=== PATIENT | female | born 1970 | race Caucasian/White ===

== ENCOUNTER → 2019-12-12 10:12 | Outpatient (BNVA) | payer BC, SELFPAY | PROVIDERS: Family Provider Family Medicine; PCP Family Medicine; Visit Provider Family Medicine | DX: I10 Essential (primary) hypertension (principal); E11.9 Type 2 diabetes mellitus without complications; K75.81 Nonalcoholic steatohepatitis (NASH) | CPT/HCPCS: 80053; 80061; 82044; 82105; 83036; 83516; 85025; 85610 ==

== ENCOUNTER → 2019-12-13 15:50 | Outpatient (BNVA) | payer BC, SELFPAY | PROVIDERS: Family Provider Family Medicine; PCP Family Medicine; Visit Provider Family Medicine | DX: I10 Essential (primary) hypertension (principal); E11.9 Type 2 diabetes mellitus without complications; K75.81 Nonalcoholic steatohepatitis (NASH); D64.9 Anemia, unspecified | CPT/HCPCS: 82728; 83540; 83550 ==

== ENCOUNTER 2019-12-22 07:55 | Outpatient (CLI) | payer BC, SELFPAY ==
--- NOTE | 2019-12-22 | US_ITS ---
WS: [id number] ABDOMINAL ULTRASOUND REASON FOR EXAM: MARTIN, FATTY LIVER TECHNIQUE: Grayscale and Doppler ultrasound examination of the abdomen. FINDINGS: Pancreas: Within normal limits. Abdominal aorta and IVC: Within normal limits. Liver: Liver measures 20.82 cm in length. Diffuse fatty infiltration. Gallbladder: Status post cholecystectomy. Common bile duct measured 0.63 cm. Left kidney: Left kidney measures 11.22 cm x 5.50 cm x 5.73 cm. . No hydronephrosis no stones. Right kidney: Right kidney measures 11.45 cm x 5.03 cm x 5.90 cm. . No hydronephrosis no stones. Spleen: Spleen measures 12.64 cm by 5.37 x 4.88 cm. US/US abdomen complete* [id number] IMPRESSION: Hepatomegaly Fatty infiltration of the liver
--- NOTE | 2019-12-22 08:41 | US_ITS ---
WS: [id number] ABDOMINAL ULTRASOUND REASON FOR EXAM: MARTIN, FATTY LIVER TECHNIQUE: Grayscale and Doppler ultrasound examination of the abdomen. FINDINGS: Pancreas: Within normal limits. Abdominal aorta and IVC: Within normal limits. Liver: Liver measures 20.82 cm in length. Diffuse fatty infiltration. Gallbladder: Status post cholecystectomy. Common bile duct measured 0.63 cm. Left kidney: Left kidney measures 11.22 cm x 5.50 cm x 5.73 cm. . No hydronephrosis no stones. Right kidney: Right kidney measures 11.45 cm x 5.03 cm x 5.90 cm. . No hydronephrosis no stones. Spleen: Spleen measures 12.64 cm by 5.37 x 4.88 cm.
== END 2019-12-22 07:56 | disposition home or self-care (01) ==
PROVIDERS: Family Provider Family Medicine; PCP Family Medicine; Visit Provider Internal Medicine Gastroenterology
DX: K75.81 Nonalcoholic steatohepatitis (NASH) (principal); R16.0 Hepatomegaly, not elsewhere classified
CPT/HCPCS: 76700

== ENCOUNTER 2020-05-21 12:59 | Emergency (ER) | payer BC, SELFPAY ==
[2020-05-21] VITALS (10 sets, daily range): BP systolic 160–216; BP diastolic 100–117; PULSE 86–100; RESP 14–28; TEMP 36.6; O2SAT 90–98; BMI 44.2
--- NOTE | 2020-05-21 | XR_ITS ---
WS: [id number] EXAM: RIGHT SHOULDER AXILLARY VIEW DATE OF EXAMINATION: 05/21/2020, 1515 hours COMPARISON: Right shoulder plain films from earlier on the same date. HISTORY: 49 years old with right humeral fracture status post dislocation with subsequent reduction. FINDINGS: No definite glenoid fracture seen. Fractured humeral head noted. No dislocation seen No soft tissue a bnormality is demonstrated. XR/XR shoulder RT 1V [id number] IMPRESSION: No shoulder dislocation seen. Right humeral head fracture seen. No definite bon y glenoid fracture noted.
--- NOTE | 2020-05-21 13:10 | XR_ITS ---
WS: [id number] EXAM: RIGHT SHOULDER: 3 VIEWS DATE OF EXAMINATION: 05/21/2020, 1318 hours COMPARISON: None. HISTORY: 49 years old with shoulder pain. Status post fall with extended arm. FINDINGS: There are findings of anterior inferior dislocation of the right humerus in relation to the glenoid w ith a fractured posterior humeral head with displacement of the greater tuberosity fracture fragment by several centimeters. Post reduction imaging is recommended. I'm not convinced I see a definite gle noid fracture. No soft tissue abnormality is demonstrated. XR/XR shoulder RT min 2V* [id number] IMPRESSION: Anterior inferior humeral head dislocation relation to the glenoid with a fract ured and displaced greater tuberosity fracture fragment.
--- NOTE | 2020-05-21 13:15 | ED_ITS ---
HPI - Extremity Injury (Upper) General: Chief Complaint: Extremity Injury, Lower Stated Complaint: right arm/shoulder pain Time Seen by Provider: 05/21/20 13:14 Source: patient Mode of arrival: ambulatory Limitations: no limitations History of Present Illness: HPI narrative: Patient is a 49-year-old female who presents to ED today for evaluation of a right shoulder injury. Patient states just prior to arrival she accidentally tripped and ran her shoulder into a door hinge. She is complaining of severe right shoulder pain. No other injury sustained during the incident. MD complaint: injury to: right and shoulder Onset (ago): hour(s) Other Extremity Injury: Right: shoulder Other injuries: none Place: home Severity: severe Severity scale (1-10): 10 Relieving factors: none Exacerbating factors: movement of extremity Context: direct blow Associated symptoms: Reports no associated symptoms; Denies neck pain Review of Systems Eyes: Denies: change in vision Card: Denies: chest pain Resp: Denies: dyspnea GI: Denies: nausea or vomiting Musc: Reports: joint pain (R shoulder); Denies: neck pain, back pain, extremity pain, extremity swelling or joint swelling PFSH ED PFSH: Medical History Allergic rhinitis Benign essential HTN Gastroparesis GERD (gastroesophageal reflux disease) Hepatosplenomegaly Hypokalemia Hyponatremia Lesion of lung Liver fibrosis MARTIN (nonalcoholic steatohepatitis) Situational anxiety Sleep apnea Type 2 diabetes mellitus, without long-term current use of insulin Surgical History History of cholecystectomy Hx of bilateral salpingectomy Hx of section Hx of dilation and curettage Hx of hysterectomy Hx of tonsillectomy Hx of tubal ligation Family History Other Cancer Diabetes Family history of thyroid problem Stroke Social History Smoking and tobacco status: never smoked Alcohol intake: never Physical Exam Const: COMMON NORMALS: patient oriented x3, no limitations and alert GENERAL APPEARANCE: cooperative and in distress (crying due to pain) NUTRITIONAL APPEARANCE: obese ORIENTATION/CONSCIOUSNESS: Yes oriented to person, Yes oriented to place and Yes oriented to time HENMT: COMMON NORMALS: normocephalic and atraumatic HEAD & SCALP: normocephalic and atraumatic Neck/C-Spine: COMMON NORMALS: full ROM CERVICAL SPINE: Yes cervical ROM normal, No pain with cervical ROM, No Cervical spine tenderness and No Paracervical muscle tenderness Chest: COMMONS NORMALS: normal inspection of the chest and normal palpation of entire chest wall Resp: COMMON NORMALS: normal respiratory effort and clear to auscultation bilaterally AUSCULTATION: clear to auscultation bilaterally Cardio: COMMON NORMALS: regular rate and regular rhythm RATE: regular rate RHYTHM: regular rhythm Back/Pelvis: COMMON NORMALS: thoracic and lumbar spine normal to inspection, no thoracic nor lumbar tenderness and thoraco-lumbar ROM normal Extremity: GENERAL: Yes normal exam except as noted RIGHT UPPER EXTREMITY: Yes shoulder joint (extreme pain with palpation of glenohumeral joint; no ROM secondary to this) Right shoulder: Yes Right shoulder joint neurovascular exam (intact) Neuro: COMMON NORMALS: patient oriented x3, no focal motor deficits, no sensory deficits noted and gait normal SENSORIUM/ORIENTATION: Yes alert, Yes oriented to person, Yes oriented to place and Yes oriented to time Skin: COMMON NORMALS: no rashes or lesions noted GENERAL SKIN EXAM: no rashes or lesions noted Course Vital Signs: Vital signs: Vital Signs Temperature 97.9 F 05/21/20 13:09 Pulse Rate 95 05/21/20 13:09 Respiratory Rate 18 05/21/20 13:09 Blood Pressure 216/117 05/21/20 13:09 Pulse Oximetry 96 05/21/20 13:09 Discharge Plan Discharge Prescriptions: No Action potassium chloride [Klor-Con 10] 10 mEq tablet extended release 10 meq PO BID RF: 0 fluticasone propionate [Flonase Allergy Relief] 50 mcg/actuation spray,suspension 1 spray INTRANASAL BID RF: 0 cholecalciferol (vitamin D3) 25 mcg (1,000 unit) tablet 1,000 unit PO DAILY RF: 0 amlodipine 5 mg tablet 5 mg PO DAILY RF: 0 hydroxyzine HCl 25 mg tablet 25 mg PO BID PRN (Reason: anxiety) 60 Days Qty: 60 RF: 2 pantoprazole 40 mg tablet,delayed release (DR/EC) 40 mg PO BID Qty: 60 RF: 2 metformin 1,000 mg tablet 1,000 mg PO BID Qty: 60 RF: 2 Invokana 300 mg tablet 300 mg PO DAILY Qty: 30 RF: 2 Januvia 100 mg tablet 100 mg PO DAILY Qty: 30 RF: 2 Trulicity 1.5 mg/0.5 mL pen injector 1.5 mg SUBCUT .once weekly Qty: 2 RF: 2 pregabalin 75 mg capsule 75 mg PO TID Qty: 90 RF: 2 (DME) lancets [OneTouch Delica Lancets] 33 gauge misc See Rx Instructions .ROUTE .MEDSUPPLY Qty: 100 RF: 1 (DME) OneTouch Ultra Blue Test Strip Strip See Rx Instructions .ROUTE .MEDSUPPLY Qty: 100 RF: 2 (DME) blood sugar diagnostic [OneTouch Ultra Blue Test Strip] Strip See Rx Instructions .ROUTE .MEDSUPPLY Qty: 100 RF: 0 (DME) lancets [OneTouch UltraSoft Lancets] Misc See Rx Instructions .ROUTE .MEDSUPPLY Qty: 100 RF: 0 Coding Level of Care Code ED Plant Taxonomy Teacher for Chg Fwd Exam Comprehensive
[2020-05-21] MEDS: morphine 4 mg/mL SDV 1 mL IVP ×2 (13:46→14:40)
[2020-05-21] MEDS: ondansetron 2 mg/ML SDV 2 mL 4 MG IVP (13:52)
[2020-05-21] MEDS: fentaNYL 50 mcg/mL INJ 2mL 75 MCG IVP (14:04)
[2020-05-21] MEDS: propofol 10 mg/mL SDV 20 mL 225 MG IVP (14:19)
--- NOTE | 2020-05-21 14:25 | XR_ITS ---
WS: [id number] EXAM: RIGHT SHOULDER: 3 VIEWS DATE OF EXAMINATION: 05/21/2020, 1431 hours COMPARISON: Right shoulder examination from earlier on the same date. HISTORY: 49 years old with post reduction dislocated right shoulder. FINDINGS: Since the earlier examination the dislocated shoulder has been reduced. The distal fractured posterio r greater tuberosity of the humeral head is now closer in alignment with the main humeral head. No so ft tissue abnormality is demonstrated. XR/XR shoulder RT min 2V* [id number] IMPRESSION: Reduced dislocated right shoulder. Fractured and displaced posterior humeral he ad/greater tuberosity fragment now in closer alignment to the main humeral head .
--- NOTE | 2020-05-21 14:44 | W.ED.UPPEXIN ---
Documented by User: PETERSON Bullock 05/21/20 16:23 HPI - Extremity Injury (Upper) General: Chief Complaint: Extremity Injury, Lower Stated Complaint: right arm/shoulder pain Time Seen by Provider: 05/21/20 13:14 Source: patient Mode of arrival: ambulatory Limitations: no limitations History of Present Illness: HPI narrative: Patient is a 49-year-old female who presents to ED today for evaluation of her right shoulder injury. Patient tells me just prior to arrival she accidentally tripped and fell and slammed her right shoulder into a door hinge. Patient reports immediate severe pain. No other injury sustained during the incident. She denies numbness, tingling, loss of sensation to her extremity. MD complaint: injury to: right and shoulder Onset (ago): hour(s) Other Extremity Injury: Right: shoulder Other injuries: none Place: home Severity: severe Relieving factors: none Exacerbating factors: movement of extremity Associated symptoms: Reports no associated symptoms; Denies neck pain Review of Systems Eyes: Denies: change in vision Card: Denies: chest pain Resp: Denies: dyspnea GI: Denies: nausea or vomiting Musc: Reports: joint pain (R shoulder) and limited range of motion; Denies: neck pain, back pain, extremity pain or extremity swelling Neuro: Denies: numbness in extremities or sensory changes PFS ED PFSH: Medical History (Updated 05/21/20 @ 15:46 by PETERSON Bullock) Allergic rhinitis Benign essential HTN Gastroparesis GERD (gastroesophageal reflux disease) Hepatosplenomegaly Hypokalemia Hyponatremia Lesion of lung Liver fibrosis MARTIN (nonalcoholic steatohepatitis) Situational anxiety Sleep apnea Type 2 diabetes mellitus, without long-term current use of insulin Surgical History History of cholecystectomy Hx of bilateral salpingectomy Hx of section Hx of dilation and curettage Hx of hysterectomy Hx of tonsillectomy Hx of tubal ligation Family History Other Cancer Diabetes Family history of thyroid problem Stroke Social History Smoking and tobacco status: never smoked Alcohol intake: never Physical Exam Const: COMMON NORMALS: patient oriented x3, no limitations and alert GENERAL APPEARANCE: cooperative and in distress (crying due to pain) NUTRITIONAL APPEARANCE: obese HENMT: COMMON NORMALS: normocephalic and atraumatic HEAD & SCALP: normocephalic and atraumatic Neck/C-Spine: COMMON NORMALS: full ROM CERVICAL SPINE: Yes cervical ROM normal, No Cervical spine tenderness and No Paracervical muscle tenderness Chest: COMMONS NORMALS: normal inspection of the chest and normal palpation of entire chest wall Resp: COMMON NORMALS: normal respiratory effort and clear to auscultation bilaterally AUSCULTATION: clear to auscultation bilaterally Cardio: COMMON NORMALS: regular rate and regular rhythm RATE: regular rate RHYTHM: regular rhythm Back/Pelvis: COMMON NORMALS: thoracic and lumbar spine normal to inspection, no thoracic nor lumbar tenderness and thoraco-lumbar ROM normal Extremity: GENERAL: Yes normal exam except as noted RIGHT UPPER EXTREMITY: Yes shoulder joint (severe pain with palpation of glenohumeral joint; no ROM secondary to pain) Right shoulder: Yes Right shoulder joint neurovascular exam (intact) Neuro: COMMON NORMALS: patient oriented x3, no focal motor deficits and no sensory deficits noted SENSORIUM/ORIENTATION: Yes alert Skin: COMMON NORMALS: no rashes or lesions noted GENERAL SKIN EXAM: no rashes or lesions noted Procedures Orthopedic Joint Reduction Joint #1: Time Out Performed: Yes Side: right Joint Reduction Location: shoulder Analgesia: procedural sedation Shoulder Technique Used (if applicable): traction/counter-traction and external rotation Post-reduction neuro exam: intact Post-reduction vascular: intact Post Reduction X-Ray Obtained: Yes Post Reduction X-Ray Results: reduced Splint Applied: Yes Patient Tolerated Procedure: well Course Consultations: Consultation #1: Dr. Arredondo-recommends reduction and will be consulted again with post-reduction films *Dr. Arredondo contacted again after post-reduction films completed-recommends sling and will followup in office Vital Signs: Vital signs: Vital Signs Temperature 97.9 F 05/21/20 13:09 Pulse Rate 100 05/21/20 16:00 Respiratory Rate 18 05/21/20 16:00 Blood Pressure 181/100 05/21/20 14:36 Pulse Oximetry 97 05/21/20 16:00 MDM - Extremity Injury (Upper) MDM Narrative: Medical decision making narrative: case management actively working on getting her set up with Dr. Arredondo this week; patient was seen and treated in conjunction with Dr. Donato; please see his note for procedural sedation; he was present and assisted with joint reduction Imaging Data^: XR R shoulder: Radiologist's impression: [address] [address] XRay Report Signed Patient: Vaishali Jean Unit #: [id number] : 1970 Age/Sex: 49 / F ADM Date: 05/21/20 Loc: ER Room/Bed: Attending Dr: Ordering Provider/Ordering MD: Elisabeth Quintanilla Date of Service: 05/21/20 Procedure(s): XR shoulder RT min 2V* [id number] Accession Number(s): [id number] Report Number: [id number] WS: [id number] EXAM: RIGHT SHOULDER: 3 VIEWS DATE OF EXAMINATION: 05/21/2020, 1318 hours COMPARISON: None. HISTORY: 49 years old with shoulder pain. Status post fall with extended arm. FINDINGS: There are findings of anterior inferior dislocation of the right humerus in relation to the glenoid with a fractured posterior humeral head with displacement of the greater tuberosity fracture fragment by several centimeters. Post reduction imaging is recommended. I'm not convinced I see a definite glenoid fracture. No soft tissue abnormality is demonstrated. XR/XR shoulder RT min 2V* [id number] IMPRESSION: Anterior inferior humeral head dislocation relation to the glenoid with a fractured and displaced greater tuberosity fracture fragment. Dictated By: Elias Villanueva MD Signed By: Elias Villanueva MD Signed Date/Time: 05/21/20 1340 DD/ 1338 XR R shoulder post-reduction: Radiologist's impression: [address] [place] [address] XRay Report Signed Patient: Vaishali Jean Unit #: [id number] : 1970 Age/Sex: 49 / F ADM Date: 05/21/20 Loc: ER Room/Bed: Attending Dr: Ordering Provider/Ordering MD: Jessie Donato DO Date of Service: 05/21/20 Procedure(s): XR shoulder RT min 2V* [id number] Accession Number(s): [id number] Report Number: [id number] WS: [id number] EXAM: RIGHT SHOULDER: 3 VIEWS DATE OF EXAMINATION: 05/21/2020, 1431 hours COMPARISON: Right shoulder examination from earlier on the same date. HISTORY: 49 years old with post reduction dislocated right shoulder. FINDINGS: Since the earlier examination the dislocated shoulder has been reduced. The distal fractured posterior greater tuberosity of the humeral head is now closer in alignment with the main humeral head. No soft tissue abnormality is demonstrated. XR/XR shoulder RT min 2V* [id number] IMPRESSION: Reduced dislocated right shoulder. Fractured and displaced posterior humeral head/greater tuberosity fragment now in closer alignment to the main humeral head. Dictated By: Elias Villanueva MD Signed By: Elias Villanueva MD Signed Date/Time: 05/21/201447 DD/ 45 Discharge Plan Discharge Patient Disposition: Home Clinical Impression: Dislocation of right shoulder joint Qualifiers: Encounter type: initial encounter Qualified Code(s): S43.004A - Unspecified dislocation of right shoulder joint, initial encounter Closed fracture of greater tuberosity of humerus Qualifiers: Encounter type: initial encounter Fracture alignment: displaced Laterality: right Qualified Code(s): S42.251A - Displaced fracture of greater tuberosity of right humerus, initial encounter for closed fracture Condition: Stable Prescriptions: New hydrocodone-acetaminophen 7.5-325 mg tablet 1 tab PO Q4H PRN (Reason: pain) Qty: 20 RF: 0 No Action potassium chloride [Klor-Con 10] 10 mEq tablet extended release 10 meq PO BID RF: 0 fluticasone propionate [Flonase Allergy Relief] 50 mcg/actuation spray,suspension 1 spray INTRANASAL BID RF: 0 cholecalciferol (vitamin D3) 25 mcg (1,000 unit) tablet 1,000 unit PO DAILY RF: 0 amlodipine 5 mg tablet 5 mg PO DAILY RF: 0 hydroxyzine HCl 25 mg tablet 25 mg PO BID PRN (Reason: anxiety) 60 Days Qty: 60 RF: 2 pantoprazole 40 mg tablet,delayed release (DR/EC) 40 mg PO BID Qty: 60 RF: 2 metformin 1,000 mg tablet 1,000 mg PO BID Qty: 60 RF: 2 Invokana 300 mg tablet 300 mg PO DAILY Qty: 30 RF: 2 Januvia 100 mg tablet 100 mg PO DAILY Qty: 30 RF: 2 pregabalin 75 mg capsule 75 mg PO TID Qty: 90 RF: 2 (DME) lancets [OneTouch Delica Lancets] 33 gauge misc See Rx Instructions .ROUTE .MEDSUPPLY Qty: 100 RF: 1 (DME) OneTouch Ultra Blue Test Strip Strip See Rx Instructions .ROUTE .MEDSUPPLY Qty: 100 RF: 2 (DME) blood sugar diagnostic [OneTouch Ultra Blue Test Strip] Strip See Rx Instructions .ROUTE .MEDSUPPLY Qty: 100 RF: 0 (DME) lancets [OneTouch UltraSoft Lancets] Misc See Rx Instructions .ROUTE .MEDSUPPLY Qty: 100 RF: 0 Tylenol Extra Strength 500 mg Tablet 1,000 mg PO PRN RF: 0 hydrochlorothiazide 25 mg tablet 25 mg PO DAILY RF: 0 echinacea 2 tab PO DAILY RF: 0 Trulicity 1.5 mg/0.5 mL pen injector 1.5 mg SUBCUT Q7D RF: 0 Discharge Orders: Discharge Order (Routine); Ordered 05/21/20 Ordered By: Elisabeth Quintanilla Referrals: Bety Steinberg DO [Primary Care Provider] - Rashel Arredondo MD [Physician] - Activity Restrictions/Additional Instructions: As discussed case management will work on getting you your appointment date and time with Dr. Arredondo. You may use pain medications as directed for severe pain. You need to wear your sling at all times apart from bathing/showering. Discharge Date/Time: 05/21/20 16:04 Sign Out Sign Out Data: Patient Sign Out occurred on 05/21/20 at 16:01. Patient's care was discussed, and care was transferred from to Jessie Donato. Coding Level of Care Code ED Oracle Brm Developer for Chg Fwd Exam Comprehensive Documented by User: Jessie Donato 05/21/20 16:03 HPI - Extremity Injury (Upper) General: Chief Complaint: Extremity Injury, Lower Stated Complaint: right arm/shoulder pain Time Seen by Provider: 05/21/20 13:14 [facility] ED PFSH: Medical History (Updated 05/21/20 @ 15:46 by PETERSON Bullock) Allergic rhinitis Benign essential HTN Gastroparesis GERD (gastroesophageal reflux disease) Hepatosplenomegaly Hypokalemia Hyponatremia Lesion of lung Liver fibrosis MARTIN (nonalcoholic steatohepatitis) Situational anxiety Sleep apnea Type 2 diabetes mellitus, without long-term current use of insulin Surgical History History of cholecystectomy Hx of bilateral salpingectomy Hx of section Hx of dilation and curettage Hx of hysterectomy Hx of tonsillectomy Hx of tubal ligation Family History Other Cancer Diabetes Family history of thyroid problem Stroke Social History Smoking and tobacco status: never smoked Alcohol intake: never Procedures Procedural Sedation Indication: fracture/dislocation reduction Presedation Evaluation: Normal physical exam other than right extremity injury as noted. ASA Class: II Preparation: cardiac exercise specialist applied, pulse oximeter, capnometry used, supplemental O2 applied and suction/airway equipment at bedside IV Propofol dose (mg): 250 Patient Tolerated Procedure: well Complications: none Course Vital Signs: Vital signs: Vital Signs Temperature 97.9 F 05/21/20 13:09 Pulse Rate 100 05/21/20 16:00 Respiratory Rate 18 05/21/20 16:00 Blood Pressure 181/100 05/21/20 14:36 Pulse Oximetry 97 05/21/20 16:00 Discharge Plan Discharge Patient Disposition: Home Clinical Impression: Dislocation of right shoulder joint Qualifiers: Encounter type: initial encounter Qualified Code(s): S43.004A - Unspecified dislocation of right shoulder joint, initial encounter Closed fracture of greater tuberosity of humerus Qualifiers: Encounter type: initial encounter Fracture alignment: displaced Laterality: right Qualified Code(s): S42.251A - Displaced fracture of greater tuberosity of right humerus, initial encounter for closed fracture Condition: Stable Prescriptions: New hydrocodone-acetaminophen 7.5-325 mg tablet 1 tab PO Q4H PRN (Reason: pain) Qty: 20 RF: 0 No Action potassium chloride [Klor-Con 10] 10 mEq tablet extended release 10 meq PO BID RF: 0 fluticasone propionate [Flonase Allergy Relief] 50 mcg/actuation spray,suspension 1 spray INTRANASAL BID RF: 0 cholecalciferol (vitamin D3) 25 mcg (1,000 unit) tablet 1,000 unit PO DAILY RF: 0 amlodipine 5 mg tablet 5 mg PO DAILY RF: 0 hydroxyzine HCl 25 mg tablet 25 mg PO BID PRN (Reason: anxiety) 60 Days Qty: 60 RF: 2 pantoprazole 40 mg tablet,delayed release (DR/EC) 40 mg PO BID Qty: 60 RF: 2 metformin 1,000 mg tablet 1,000 mg PO BID Qty: 60 RF: 2 Invokana 300 mg tablet 300 mg PO DAILY Qty: 30 RF: 2 Januvia 100 mg tablet 100 mg PO DAILY Qty: 30 RF: 2 pregabalin 75 mg capsule 75 mg PO TID Qty: 90 RF: 2 (DME) lancets [OneTouch Delica Lancets] 33 gauge misc See Rx Instructions .ROUTE .MEDSUPPLY Qty: 100 RF: 1 (DME) OneTouch Ultra Blue Test Strip Strip See Rx Instructions .ROUTE .MEDSUPPLY Qty: 100 RF: 2 (DME) blood sugar diagnostic [OneTouch Ultra Blue Test Strip] Strip See Rx Instructions .ROUTE .MEDSUPPLY Qty: 100 RF: 0 (DME) lancets [OneTouch UltraSoft Lancets] Misc See Rx Instructions .ROUTE .MEDSUPPLY Qty: 100 RF: 0 Tylenol Extra Strength 500 mg Tablet 1,000 mg PO PRN RF: 0 hydrochlorothiazide 25 mg tablet 25 mg PO DAILY RF: 0 echinacea 2 tab PO DAILY RF: 0 Trulicity 1.5 mg/0.5 mL pen injector 1.5 mg SUBCUT Q7D RF: 0 Discharge Orders: Discharge Order (Routine); Ordered 05/21/20 Ordered By: Elisabeth Quintanilla Referrals: Bety Steinberg DO [Primary Care Provider] - Rashel Arredondo MD [Physician] - Activity Restrictions/Additional Instructions: As discussed case management will work on getting you your appointment date and time with Dr. Arredondo. You may use pain medications as directed for severe pain. You need to wear your sling at all times apart from bathing/showering. Discharge Date/Time: 05/21/20 16:04 Sign Out Sign Out Data: Patient Sign Out occurred on 05/21/20 at 16:01. Patient's care was discussed, and care was transferred from to Jessie Donato. Coding Level of Care Code ED Oracle Brm Developer for [place] Fwd Exam Comprehensive
--- NOTE | 2020-05-21 15:53 | DCPLANNER ---
manager creative was asked to schedule a follow up appointment for patient with ortho. manager creative called the ortho clinic, spoke with Claritza, gave clinic patients information. manager creative was told that patients information would be printed and reviewed. Clinic will call patient with appointment information.
--- NOTE | 2020-05-22 11:53 | DCPLANNER ---
Patient had a follow up appointment scheduled for 05.22.20 with ortho. Patient did attend the appointment.
== END 2020-05-21 16:04 | disposition home or self-care (01) ==
PROVIDERS: Emergency Provider Emergency Medicine; PCP Family Medicine
DX: S42.251A Displaced fracture of greater tuberosity of right humerus, initial encounter for closed fracture (principal); S43.004A Unspecified dislocation of right shoulder joint, initial encounter; I10 Essential (primary) hypertension; E11.9 Type 2 diabetes mellitus without complications; Z79.4 Long term (current) use of insulin; W01.198A Fall on same level from slipping, tripping and stumbling with subsequent striking against other object, initial encounter
CPT/HCPCS: 12345; 23650; 73020; 73030; 96374; 96375; 96376; 99283; J2270; J2405; J2704; J3010

== ENCOUNTER → 2020-05-29 09:59 | Outpatient (BNVA) | payer BC, SELFPAY | PROVIDERS: PCP Family Medicine; Visit Provider Orthopaedic Surgery | DX: S42.251A Displaced fracture of greater tuberosity of right humerus, initial encounter for closed fracture (principal); W01.0XXA Fall on same level from slipping, tripping and stumbling without subsequent striking against object, initial encounter | CPT/HCPCS: 73030 ==

== ENCOUNTER → 2020-06-26 08:19 | Outpatient (BNVA) | payer BC, SELFPAY | PROVIDERS: PCP Family Medicine; Visit Provider Orthopaedic Surgery | DX: S42.251A Displaced fracture of greater tuberosity of right humerus, initial encounter for closed fracture (principal); X58.XXXA Exposure to other specified factors, initial encounter | CPT/HCPCS: 73030 ==

== ENCOUNTER → 2020-07-15 08:28 | Outpatient (BNVA) | payer BC, SELFPAY | PROVIDERS: PCP Family Medicine; Visit Provider Family Medicine | DX: E11.9 Type 2 diabetes mellitus without complications (principal); I10 Essential (primary) hypertension; E11.42 Type 2 diabetes mellitus with diabetic polyneuropathy; K75.81 Nonalcoholic steatohepatitis (NASH) | CPT/HCPCS: 80053; 80061; 83036; 83721; 85025 ==

== ENCOUNTER → 2020-07-31 08:38 | Outpatient (BNVA) | payer BC, SELFPAY | PROVIDERS: PCP Family Medicine; Visit Provider Orthopaedic Surgery | DX: S42.251A Displaced fracture of greater tuberosity of right humerus, initial encounter for closed fracture (principal); X58.XXXA Exposure to other specified factors, initial encounter | CPT/HCPCS: 73030 ==

== ENCOUNTER → 2020-08-27 10:22 | Outpatient (BNVA) | payer BC, SELFPAY | PROVIDERS: PCP Family Medicine; Visit Provider Orthopaedic Surgery | DX: S49.91XA Unspecified injury of right shoulder and upper arm, initial encounter (principal); X58.XXXA Exposure to other specified factors, initial encounter | CPT/HCPCS: 73030 ==

== ENCOUNTER → 2022-02-05 10:17 | Outpatient (BNVA) | payer BC, SELFPAY | PROVIDERS: PCP Family Medicine; Visit Provider Family Medicine | DX: K21.9 Gastro-esophageal reflux disease without esophagitis (principal); I10 Essential (primary) hypertension; E11.9 Type 2 diabetes mellitus without complications | CPT/HCPCS: 80053; 80061; 83036 ==

== ENCOUNTER → 2022-06-03 08:29 | Outpatient (BNVA) | payer BC, SELFPAY | PROVIDERS: PCP Family Medicine; Visit Provider Family Medicine | DX: E11.9 Type 2 diabetes mellitus without complications (principal); I10 Essential (primary) hypertension; M62.838 Other muscle spasm; Z91.19 Patient's noncompliance with other medical treatment and regimen | CPT/HCPCS: 80048; 83036; 83735 ==

== ENCOUNTER → 2022-10-02 09:13 | Outpatient (BNVA) | payer BC, SELFPAY | PROVIDERS: PCP Family Medicine; Visit Provider Family Medicine | DX: E11.9 Type 2 diabetes mellitus without complications (principal); I10 Essential (primary) hypertension | CPT/HCPCS: 80048; 83036 ==

== ENCOUNTER 2022-11-11 00:30 | Emergency (ER) | payer BC, SELFPAY ==
--- NOTE | 2022-11-11 00:41 | XR_ITS ---
WS: [id number] PORTABLE CHEST HISTORY: Chest pain. COMPARISON: None available. Mildly lordotic appearance of the lungs due to positioning. Cause of the mediastinum to appear mildly widened. The lungs are clear. No pleural effusion or pneumothorax. Cardiac size: Normal. Mediastinum/Aorta: Normal mediastinum. No osseous abnormality seen. XR/XR chest 1V portable [id number] IMPRESSION: Unremarkable portable chest.
--- NOTE | 2022-11-11 00:41 | XR_ITS ---
WS: [id number] RIGHT FOREARM 2 VIEWS HISTORY: pain COMPARISON: None available. No fracture or dislocation. No foreign body or joint effusion. XR/XR forearm RT 2V [id number] IMPRESSION: Normal RIGHT forearm.
--- NOTE | 2022-11-11 00:41 | CT_ITS ---
WS: [id number] CT HEAD NONCONTRAST HISTORY: fall TECHNIQUE: Contiguous axial imaging performed through the brain in 2.5 mm imaging. Bone and soft tiss ue windows. Sagittal and coronal reformats reviewed. All CT scans at [facility] use at least one of these dose optimization techniques: automated exposure control; mA and/or kV adjustment per pa tient size (includes targeted exams where dose is matched to clinical indication); or iterative recon struction. DLP: 1028.28 mGy.cm COMPARISON: None available. No acute intracranial hemorrhage, midline shift or mass effect. Very minimal atrophy and small vessel ischemic disease. No infarct. Ventricles: Normal size with no hydrocephalus. No inferior displacement of cerebellar tonsils. Small lipoma along the supraventricular falx. Paranasal sinuses: As visualized are clear. Mastoid air cells: Well pneumatized. Calvarium and scalp: Skull is intact with no soft tissue edema or swelling. CT/CT head wo con* [id number] IMPRESSION: 1. No acute intracranial hemorrhage or edema. 2. Very mild atrophy and small vessel ischemic disease.
[2022-11-11 00:42] VITALS: BP 204/134; PULSE 106; RESP 16; TEMP 36.3; O2SAT 96; BMI 38.8
--- NOTE | 2022-11-11 00:43 | ED_ITS ---
HPI - Fall General: Chief Complaint: Syncope Stated Complaint: fall, right arm injury, ANGEL Time Seen by Provider: 11/11/22 00:36 Source: patient Mode of arrival: ambulatory Limitations: no limitations History of Present Illness: 52-year-old female states she had a fall earlier today. She states that she has felt lightheaded and then fell. She denies passing out she did hit her head and has a contusion to her forehead and has some right-sided arm pain. She has a headache she rates at 3 out of 10 denies any chest pain currently denies any shortness of breath denies any vomiting or diarrhea. Associated symptoms-after fall: Reports headache(s); Denies abdominal pain Review of Systems Const: Denies: fever(s), chills, body aches or change in appetite Eyes: Denies: blurry vision or eye discomfort ENMT: Denies: throat pain or dental pain Card: Reports: pre-syncope Resp: Denies: dyspnea GI: Denies: abdominal pain, nausea, vomiting or diarrhea : Denies: dysuria Musc: Reports: extremity pain Skin/Breast: Denies: rash Neuro: Reports: headache(s) Psych: Denies: depression Du/Lymph: Denies: easy bruising All/Imm: Denies: urticaria PFSH ED PFSH: Medical History (Updated 11/11/22 @ 03:04 by Kendall Godfrey MD) Allergic rhinitis Benign essential HTN side effects with HCTZ and amlodipine Gastroparesis GERD (gastroesophageal reflux disease) Hepatosplenomegaly Hypokalemia Hyponatremia Lesion of lung Liver fibrosis MARTIN (nonalcoholic steatohepatitis) Situational anxiety Sleep apnea Type 2 diabetes mellitus, without long-term current use of insulin metformin intolerance. Surgical History History of cholecystectomy Hx of bilateral salpingectomy Hx of section Hx of dilation and curettage Hx of hysterectomy Hx of tonsillectomy Hx of tubal ligation Family History Other Cancer Diabetes Family history of thyroid problem Stroke Social History Smoking and tobacco status: never smoked Alcohol intake: never Physical Exam Const: COMMON NORMALS: no acute distress, patient oriented x3 and healthy appearing HENMT: COMMON NORMALS: normocephalic; head/scalp not atraumatic (contusino to forehead) HEAD & SCALP: normocephalic; not atraumatic (contusino to forehead) Eye: COMMON NORMALS: Equal, round and reactive pupils present and EOMs intact bilaterally PUPIL: Yes Equal, round and reactive pupils present Neck/C-Spine: COMMON NORMALS: full ROM and supple Chest: COMMONS NORMALS: normal inspection of the chest and normal palpation of entire chest wall Resp: COMMON NORMALS: normal respiratory effort, No retractions, No use of accessory muscles and clear to auscultation bilaterally AUSCULTATION: clear to auscultation bilaterally Cardio: COMMON NORMALS: regular rate, regular rhythm and No murmurs present (Cardio) RATE: regular rate RHYTHM: regular rhythm GI: COMMON NORMALS: Normal to inspection, nondistended, normoactive bowel sounds present, Soft to palpation, non-tender and no masses PALPATION: Yes Soft to palpation Extremity: COMMON NORMALS: normal to inspection and full ROM Neuro: COMMON NORMALS: patient oriented x3, moves all extremities and no focal motor deficits Psych: COMMON NORMALS: mental status grossly normal, Normal thought process present and cooperative THOUGHT PROCESS: Normal thought process present Skin: COMMON NORMALS: no rashes or lesions noted and no wounds GENERAL SKIN EXAM: no rashes or lesions noted Course Vital Signs: Vital signs: Vital Signs Temperature 97.3 F L 11/11/22 00:42 Pulse Rate 89 11/11/22 03:01 Respiratory Rate 20 H 11/11/22 03:01 Blood Pressure 167/99 11/11/22 03:01 Pulse Oximetry 99 11/11/22 03:01 Oxygen Delivery Me thod 11/11/22 00:42 MDM - Fall Medical Decision Making Patient presents here after a fall at home closed head injury head CT here is normal she does have hypertension here but states she usually does when she goes to the hospital her troponins and blood work is normal she is stable for discharge she is follow-up her PCP and return if worsening. Lab Data 11/11/22 00:58 11/11/22 00:58 Radiology Impressions Chest X-Ray 11/11/22 00:41 IMPRESSION: Unremarkable portable chest. Forearm X-Ray 11/11/22 00:41 IMPRESSION: Normal RIGHT forearm. Head CT 11/11/22 00:41 IMPRESSION: 1. No acute intracranial hemorrhage or edema. 2. Very mild atrophy and small vessel ischemic disease. Laboratory Results WBC 9.9 10^3/uL (4.0-10.0) 11/11/22 00:58 RBC 5.11 10^6/uL (4.1-5.3) 11/11/22 00:58 Hgb 14.7 g/dL (11.5-15.3) 11/11/22 00:58 Hct 43.7 % (37.0-47.0) 11/11/22 00:58 MCV 85.5 fl (81-99) 11/11/22 00:58 MCH 28.8 pg (28.0-34.0) 11/11/22 00:58 MCHC 33.6 g/dL (30.0-36.0) 11/11/22 00:58 RDW 13.1 % (12.1-15.1) 11/11/22 00:58 Plt Count 316 10^3/cmm (130-400) 11/11/22 00:58 MPV 10.4 fL (7.4-10.4) 11/11/22 00:58 Neut % (Auto) 60.5 % 11/11/22 00:58 Lymph % (Auto) 32.4 % 11/11/22 00:58 [place] % (Auto) 5.1 % 11/11/22 00:58 Eos % (Auto) 1.1 % 11/11/22 00:58 Baso % (Auto) 0.5 % 11/11/22 00:58 Neut # (Auto) 5.99 10^3/uL (1.8-7.7) 11/11/22 00:58 Lymph # (Auto) 3.2 10^3/uL (0.8-4.8) 11/11/22 00:58 [place] # (Auto) 0.5 10^3/uL (0.2-0.9) 11/11/22 00:58 Eos # (Auto) 0.1 10^3/uL (0.0-0.8) 11/11/22 00:58 Baso # (Auto) 0.1 10^3/uL (0.0-0.1) 11/11/22 00:58 Nucleated RBC % (auto) 0 % 11/11/22 00:58 Nucleated RBCs # 0.0 /100WBC 11/11/22 00:58 Sodium 136 mmol/L (136-145) 11/11/22 00:58 Potassium 3.2 mmol/L (3.5-5.1) L 11/11/22 00:58 Chloride 97 mmol/L (98-107) L 11/11/22 00:58 Carbon Dioxide 22 mmol/L (22-29) 11/11/22 00:58 Anion Gap 20.2 (5-19) H 11/11/22 00:58 BUN 9 mg/dL (6-20) 11/11/22 00:58 Creatinine 0.7 mg/dL (0.5-0.9) 11/11/22 00:58 GFR Calculation 87.2 mL/min (90-130) L 11/11/22 00:58 Glucose 361 mg/dL (65-115) H 11/11/22 00:58 Calculated Osmolality 295 mOsm/kg (285-295) 11/11/22 00:58 Calcium 9.3 mg/dL (8.5-10.5) 11/11/22 00:58 Total Bilirubin 0.5 mg/dL (0.15-1.2) 11/11/22 00:58 AST 34 U/L (0-32) H 11/11/22 00:58 ALT 32 U/L (0-33) 11/11/22 00:58 Alkaline Phosphatase 144 U/L (35-105) H 11/11/22 00:58 Troponin T Baseline 7 ng/L (0-10) 11/11/22 00:58 Troponin T 120 Minute 6.00 ng/L (0-10) 11/11/22 02:36 Total Protein 7.5 g/dL (6.6-8.7) 11/11/22 00:58 Albumin 4.3 g/dL (3.5-5.2) 11/11/22 00:58 Globulin 3.2 g/dL (1.3-4.6) 11/11/22 00:58 EKG Data EKG 1: I personally reviewed and interpreted this EKG as follows: EKG interpretation date: 11/11/22 EKG interpretation time: 01:11 Interpretation: nsr hr [address] or t wave abnormalities qrs 87 qtc 428 Discharge Plan Discharge Patient Disposition: Home Clinical Impression: Hypertension, Closed head injury Condition: Stable Prescriptions: No Action metoprolol succinate 25 mg tablet extended release 24 hr 25 mg PO DAILY 30 Days Qty: 30 2RF losartan 50 mg tablet See Rx Instructions .ROUTE .COMPLEX Qty: 30 2RF Dose Instruction: Take 1 tablet by mouth once daily Rx Instructions: Take 1 tablet by mouth once daily pantoprazole 40 mg tablet,delayed release (DR/EC) See Rx Instructions .ROUTE .COMPLEX 30 Days Qty: 60 2RF Dose Instruction: Take 1 tablet by mouth twice daily for 90 days Rx Instructions: Take 1 tablet by mouth twice daily for 30 days tizanidine 2 mg tablet 2 mg PO TID PRN (Reason: muscle spasticity) 30 Days Qty: 90 2RF (DME) OneTouch Ultra Blue Test Strip Strip See Rx Instructions .ROUTE .MEDSUPPLY Qty: 100 2RF Rx Instructions: once daily (DME) lancets [OneTouch UltraSoft Lancets] Misc See Rx Instructions .ROUTE .MEDSUPPLY Qty: 100 0RF Rx Instructions: once daily (DME) OneTouch Ultra Test Strip See Rx Instructions .ROUTE .COMPLEX Qty: 100 5RF Dose Instruction: USE DIRECTED Rx Instructions: USE DIRECTED Trulicity 0.75 mg/0.5 mL pen injector See Rx Instructions .ROUTE .COMPLEX Qty: 4 0RF Dose Instruction: INJECT 0.75 MG SUB-Q ONCE A WEEK Rx Instructions: INJECT 0.75 MG SUB-Q ONCE A WEEK Tylenol Extra Strength 500 mg Tablet 1,000 mg PO PRN echinacea 2 tab PO DAILY Rx Instructions: pts daughter states the pt takes this medication Discharge Orders: Discharge ED (Routine); Ordered 11/11/22 Ordered By: Kendall Godfrey Referrals: Susy Winn MD [Primary Care Provider] - 1-3 days Discharge Diet: Advance as tolerated Discharge Activity: Resume usual activity Patient Instructions: Hypertension, Head Injury (ED) Coding Level of Care Code ED Station Cleaning Porter for [place]oacano De Oliveira
[2022-11-11] MEDS: labetalol 5 mg/mL SDV 20mL 10 MG IVP (00:59)
[2022-11-11 01:02] LABS: Basophils # 0.1 10^3/uL (0.0-0.1); Basophils % 0.5 %; Eosinophils # 0.1 10^3/uL (0.0-0.8); Eosinophils % 1.1 %; Hematocrit 43.7 % (37.0-47.0); Hemoglobin 14.7 g/dL (11.5-15.3); Lymphocytes # 3.2 10^3/uL (0.8-4.8); Lymphocytes % 32.4 %; Mean Corpuscular HGB Conc 33.6 g/dL (30.0-36.0); Mean Corpuscular Hemoglobin 28.8 pg (28.0-34.0); Mean Corpuscular Volume 85.5 fl (81-99); Mean Platelet Volume 10.4 fL (7.4-10.4); Monocytes # 0.5 10^3/uL (0.2-0.9); Monocytes % 5.1 %; Neutrophils # 5.99 10^3/uL (1.8-7.7); Neutrophils % 60.5 %; Nucleated Red Blood Cells % 0 %; Platelet Count 316 10^3/cmm (130-400); Red Blood Count 5.11 10^6/uL (4.1-5.3); Red Cell Distribution Width 13.1 % (12.1-15.1); White Blood Count 9.9 10^3/uL (4.0-10.0)
--- NOTE | 2022-11-11 01:11 | ECG_ITS ---
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 Measurements Intervals [place] Rate: 88 P: 58 WI: 172 QRS: 0 QRSD: 87 T: 29 QT: 382 QTc: 464 Interpretive Statements SINUS RHYTHM Possible left atrial enlargement Compared to ECG 08/21/2016 14:05:22 No significant changes Electronically Signed On 11-12-2022 0:03:34 BEREAVEMENT COUNSELOR by Kasey Mckeon M.D. [id number]
[2022-11-11 01:17] VITALS: BP 166/114; PULSE 91; RESP 16; O2SAT 100
[2022-11-11 01:27] LABS: Alanine Aminotransferase 32 U/L (0-33); Albumin Level 4.3 g/dL (3.5-5.2); Alkaline Phosphatase 144 U/L (35-105); Aspartate Amino Transferase 34 U/L (0-32); Blood Urea Nitrogen 9 mg/dL (6-20); Calcium 9.3 mg/dL (8.5-10.5); Carbon Dioxide 22 mmol/L (22-29); Chloride 97 mmol/L (98-107); Globulin 3.2 g/dL (1.3-4.6); Glomerular Filtration Rate 87.2 mL/min (90-130); Glucose 361 mg/dL (65-115); Osmolality Calculated 295 mOsm/kg (285-295); Sodium 136 mmol/L (136-145); Total Bilirubin 0.5 mg/dL (0.15-1.2); Total Protein 7.5 g/dL (6.6-8.7)
[2022-11-11 01:28] LABS: Troponin(5th) Baseline 7 ng/L (0-10)
[2022-11-11 01:30] VITALS: BP 166/125; PULSE 97; RESP 18; O2SAT 100
[2022-11-11 01:36] LABS: Anion Gap 20.2 (5-19)
[2022-11-11 01:37] LABS: Potassium 3.2 mmol/L (3.5-5.1)
[2022-11-11] MEDS: hyDRALAzine 20 mg/mL INJ 1 mL 10 MG IVP (01:56)
[2022-11-11 02:13] VITALS: BP 195/101; PULSE 95; RESP 16; O2SAT 98
[2022-11-11] MEDS: labetalol 5 mg/mL SDV 20mL 20 MG IVP (02:17)
[2022-11-11] MEDS: morphine 4 mg/mL SDV 1 mL IVP (02:19)
[2022-11-11 02:30] VITALS: BP 146/99; PULSE 87; RESP 20; O2SAT 99
--- NOTE | 2022-11-11 02:42 | ECG_ITS ---
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 Measurements Intervals [place] Rate: 89 P: 59 [place]: 180 QRS: 1 QRSD: 92 T: 8 QT: 395 QTc: 481 Interpretive Statements SINUS RHYTHM NONSPECIFIC T-WAVE ABNORMALITY Compared to ECG 11/11/2022 01:11:28 T-wave abnormality now present Electronically Signed On 11-12-2022 0:14:58 RUBBER CALENDER HELPER by Kasey Mckeon M.D. [email or web address] hospital daytonPax8/store/[id number]
[2022-11-11 03:01] VITALS: BP 167/99; PULSE 89; RESP 20; O2SAT 99
== END 2022-11-11 03:10 | disposition home or self-care (01) ==
PROVIDERS: Emergency Provider Emergency Medicine; PCP Family Medicine
DX: S00.83XA Contusion of other part of head, initial encounter (principal); W19.XXXA Unspecified fall, initial encounter; I10 Essential (primary) hypertension
CPT/HCPCS: 70450; 71045; 73090; 80053; 84484; 85025; 93005; 96374; 96375; 96376; 99285; J0360; J2270; J3490

== ENCOUNTER → 2022-12-21 08:43 | Outpatient (BNVA) | payer BC, SELFPAY | PROVIDERS: PCP Family Medicine; Visit Provider Family Medicine | DX: I10 Essential (primary) hypertension (principal); M25.551 Pain in right hip; M25.552 Pain in left hip; M54.16 Radiculopathy, lumbar region; E11.9 Type 2 diabetes mellitus without complications; M62.838 Other muscle spasm; K21.9 Gastro-esophageal reflux disease without esophagitis | CPT/HCPCS: 72100; 73523; 80048; 83036 ==

== ENCOUNTER → 2023-02-24 08:29 | Outpatient (BNVA) | payer BC, SELFPAY | PROVIDERS: PCP Family Medicine; Visit Provider Family Medicine | DX: M54.12 Radiculopathy, cervical region (principal) | CPT/HCPCS: 72040 ==

== ENCOUNTER 2023-03-19 07:04 | Outpatient (CLI) | payer BC, SELFPAY ==
--- NOTE | 2023-03-19 07:45 | USCV_ITS ---
Vaishali Jean Age: 52 Gender: F : 1970 Exam Date: 03/19/2023 07:14 Ordering Phys: Kath Colon MD ([email or web address]) Technologist: Pretty Camejo Exam Location: [facility] [place] Indication: SOB. EPISODE OF SYNCOPE THIS AM BP: 158 / 113 HR: 66 Rhythm: Sinus Technical Quality: Adequate MEASUREMENTS (Male / Female) Normal Values 2D ECHO LV Diastolic Diameter PLAX 4.1 cm 4.2 - 5.9 / 3.9 - 5.3 cm LV Systolic Diameter PLAX 2.9 cm LV Chamber Size 4.0 cm IVS Diastolic Thickness 0.8 cm 0.6 - 1.0 / 0.6 - 0.9 cm IVS Systolic Thickness 1.1 cm LVPW Diastolic Thickness 1.0 cm 0.6 - 1.0 / 0.6 - 0.9 cm LVPW Systolic Thickness 1.4 cm LVOT Diameter 2.1 cm LV Ejection Fraction 2D Teich 55.7 % LV Ejection Fraction MOD 2C 55.3 % LV Ejection Fraction 2C AL 54.2 % LA Diameter 3.0 cm LA Width 3.3 cm LA Height 3.6 cm RA Width 3.7 cm RA Height 3.2 cm Aorta at Sinotubular Diameter 3.1 cm IVC Diameter 1.8 cm M-MODE Aortic Annulus Diameter 3.2 cm LA Ao Ratio MM 1.0 MV E Point Septal Separation 0.3 cm DOPPLER AV Peak Velocity 132.0 cm/s LVOT Peak Velocity 86.0 cm/s AV Area Cont Eq vti 2.3 cm squared AV Area Cont Eq pk 2.2 cm squared MV Peak Velocity 107.0 cm/s MV Area PHT 3.5 cm squared Mitral E to A Ratio 1.3 MV E' Velocity 52.5 cm/s Mitral E to MV E' Ratio 10.5 Mitral E to LV E' Lateral Ratio 9.1 Mitral E to LV E' Septal Ratio 12.4 TR Peak Velocity 201.7 cm/s TR Peak Gradient 16.3 mmHg TR Mean Velocity 126.8 cm/s TR Mean Gradient 7.9 mmHg TR Velocity Time Integral 49.1 cm TV Peak E Velocity 80.0 cm/s Right Atrial Pressure 3.0 mmHg Pulmonary Artery Systolic Pressu 19.3 mmHg RV Acceleration Time 0.1 s RV Ejection Time 0.4 s RV AcT/ET 0.4 FINDINGS Left Ventricle Normal left ventricular size, systolic function and wall thickness, with no regional wall motion abnormalities. Left ventricular ejection fraction is estimated at 60 %. Normal diastolic function. Right Ventricle Normal right ventricular size and systolic function. Right Atrium Normal right atrial size. Left Atrium Normal left atrial size. Mitral Valve Structurally normal mitral valve. No mitral valve stenosis. Trace mitral valve regurgitation. Aortic Valve Structurally normal trileaflet aortic valve. No aortic valve stenosis. No aortic valve regurgitation. Tricuspid Valve Structurally normal tricuspid valve. No tricuspid valve stenosis. Trace tricuspid valve regurgitation. Pulmonic Valve Pulmonic valve not well visualized. Pericardium No pericardial effusion. Aorta Normal size aortic root and proximal ascending aorta. IVC Normal IVC dimension with >50% respiratory change of the inferior vena cava. CONCLUSIONS 1. Normal left ventricular size, systolic function and wall thickness, with no regional wall motion abnormalities. Left ventricular ejection fraction is estimated at 60 %. Normal diastolic function. 2. No prior similar studies to compare. Kath Colon MD (Electronically Signed) Final Date: 24 March 2023 00:18 S
== END 2023-03-19 07:05 | disposition home or self-care (01) ==
PROVIDERS: PCP Family Medicine; Visit Provider Internal Medicine Cardiovascular Disease
DX: R06.02 Shortness of breath (principal); R55 Syncope and collapse
CPT/HCPCS: 93306

== ENCOUNTER 2023-03-31 00:56 | Inpatient (IN) | payer BC, SELFPAY ==
[2023-03-31] VITALS (8 sets, daily range): BP systolic 142–189; BP diastolic 85–116; PULSE 92–109; RESP 18–20; TEMP 36.8; O2SAT 97–99
--- NOTE | 2023-03-31 01:01 | W.ED.PSYCHS ---
Documented by User: Taras Melgar MD 04/11/23 19:49 HPI - Psych General: Chief Complaint: Psychiatric Symptoms Stated Complaint: 96 HOUR HOLD Time Seen by Provider: 03/31/23 00:58 History of Present Illness: Ms. Jean is a 52-year-old lady with history of hypertension, Valenzuela, diabetes presenting to the emergency department for court ordered 96-hour hold. The patient herself provides a significantly different story that is reported on the affidavit. Apparently she and her have been arguing regarding possible infidelity and this has caused some arguments. She denies homicidal or suicidal ideation. Denies homicidal or suicidal statements. She denies history of psychiatric illness. No other specific changes in health, exacerbating, or alleviating factors identified. Review of Systems General: Reports: 10 or more systems reviewed and unremarkable except in HPI and below PFSH ED PFSH: Medical History Allergic rhinitis Benign essential HTN side effects with HCTZ and amlodipine, pt does not remember what they were. Gastroparesis GERD (gastroesophageal reflux disease) Hepatosplenomegaly Hypokalemia Hyponatremia Lesion of lung Liver fibrosis VALENZUELA (nonalcoholic steatohepatitis) Situational anxiety Sleep apnea Type 2 diabetes mellitus, without long-term current use of insulin metformin intolerance. Surgical History History of cholecystectomy Hx of bilateral salpingectomy Hx of section Hx of dilation and curettage Hx of hysterectomy Hx of tonsillectomy Hx of tubal ligation Family History Unknown No problems noted. Father Cardiac arrest Renal failure Diabetes Mother Stroke Grandmother Stroke Diabetes Hypertension Unknown No problems noted. Family/Other Diabetes Myocardial infarction Other Cancer Family history of thyroid problem Social History Smoking and tobacco status: never smoked Alcohol intake: never Substance/Drug Use: never Physical Exam Const: COMMON NORMALS: alert GENERAL APPEARANCE: cooperative and well developed HENMT: COMMON NORMALS: normocephalic and atraumatic HEAD & SCALP: normocephalic and atraumatic Eye: COMMON NORMALS: conjunctivae normal CONJUNCTIVA: Yes conjunctivae normal SCLERA: sclerae normal Neck/C-Spine: COMMON NORMALS: supple GENERAL: Yes trachea midline Resp: COMMON NORMALS: clear to auscultation bilaterally EFFORT & INSPECTION: Yes able to speak in complete sentences AUSCULTATION: clear to auscultation bilaterally Cardio: COMMON NORMALS: regular rate and regular rhythm RATE: regular rate RHYTHM: regular rhythm GI: COMMON NORMALS: Soft to palpation PALPATION: Yes Soft to palpation and No Tenderness to palpation present (GI) Extremity: GENERAL: Yes normal exam except as noted and No edema Neuro: COMMON NORMALS: moves all extremities SENSORIUM/ORIENTATION: Yes alert and No Orientation impaired Psych: COMMON NORMALS: mental status grossly normal and Normal thought process present THOUGHT PROCESS: Normal thought process present Skin: NARRATIVE SKIN EXAM: Scattered contusions, patient reports history of falls and bruising from that. Denies intentional injuries. Course Vital Signs: Vital signs: Vital Signs Temperature 97.9 F 04/03/23 14:41 Pulse Rate 90 04/03/23 14:41 Respiratory Rate 16 04/03/23 14:41 Blood Pressure 173/103 04/03/23 14:41 Pulse Oximetry 98 04/03/23 14:41 Oxygen Delivery Me thod Room Air 04/03/23 06:00 MDM - Psych Medical Decision Making 52-year-old lady presenting with court ordered 96-hour hold. Patient is calm and cooperative. Denies self-harm actions. Labs demonstrate no significant hematologic abnormalities. Metabolic panel with some evidence of dehydration and mild metabolic stress. TSH is elevated with free T4 within normal limits. Urine drug screen and toxic ingestions are negative. Urinalysis is not concerning for urinary tract infection given absence of urinary symptoms and evidence of squamous epithelial contamination. Current recommendations are to not treat asymptomatic bacteriuria. COVID negative. I will give the patient 1 L fluid bolus which I expect to significantly improve patient's metabolic panel. Ultimately findings on metabolic panel would not explain mental health or psychiatric symptoms. Given physical exam and clinical history provided there is no indication for imaging at this time. Based on ED evaluation at this point there is no obvious condition that would preclude the patient from inpatient management of psychiatric concerns/symptoms. There is significant discrepancy between documented affidavit and patient reported history as mentioned. As such the patient will be assessed by psychiatry service for further recommendations. Handed off to morning ED physician pending psychiatry recommendations and disposition as deemed appropriate. Medical Records I reviewed the patient's medical records. Lab Data I reviewed the patient's lab results. 03/31/23 01:18 03/31/23 01:18 Laboratory Results WBC 14.0 10^3/uL (4.0-10.0) H 03/31/23 01:18 RBC 4.35 10^6/uL (4.1-5.3) 03/31/23 01:18 Hgb 13.0 g/dL (11.5-15.3) 03/31/23 01:18 Hct 38.2 % (37.0-47.0) 03/31/23 01:18 MCV 87.8 fl (81-99) 03/31/23 01:18 MCH 29.9 pg (28.0-34.0) 03/31/23 01:18 MCHC 34.0 g/dL (30.0-36.0) 03/31/23 01:18 RDW 14.7 % (12.1-15.1) 03/31/23 01:18 Plt Count 354 10^3/cmm (130-400) 03/31/23 01:18 MPV 10.3 fL (7.4-10.4) 03/31/23 01:18 Neut % (Auto) 52.8 % 03/31/23 01:18 Lymph % (Auto) 38.2 % 03/31/23 01:18 [place] % (Auto) 6.3 % 03/31/23 01:18 Eos % (Auto) 1.5 % 03/31/23 01:18 Baso % (Auto) 0.6 % 03/31/23 01:18 Neut # (Auto) 7.40 10^3/uL (1.8-7.7) 03/31/23 01:18 Lymph # (Auto) 5.4 10^3/uL (0.8-4.8) H 03/31/23 01:18 [place] # (Auto) 0.9 10^3/uL (0.2-0.9) 03/31/23 01:18 Eos # (Auto) 0.2 10^3/uL (0.0-0.8) 03/31/23 01:18 Baso # (Auto) 0.1 10^3/uL (0.0-0.1) 03/31/23 01:18 Nucleated RBC % (auto) 0 % 03/31/23 01:18 Nucleated RBCs # 0.0 /100WBC 03/31/23 01:18 Sodium 132 mmol/L (136-145) L 03/31/23 01:18 Potassium 3.5 mmol/L (3.5-5.1) 03/31/23 01:18 Chloride 92 mmol/L (98-107) L 03/31/23 01:18 Carbon Dioxide 23 mmol/L (22-29) 03/31/23 01:18 Anion Gap 20.5 (5-19) H 03/31/23 01:18 BUN 29 mg/dL (6-20) H 03/31/23 01:18 Creatinine 1.6 mg/dL (0.5-0.9) H 03/31/23 01:18 GFR Calculation 33.6 mL/min (90-130) L 03/31/23 01:18 Glucose 320 mg/dL (65-115) H 03/31/23 01:18 Calculated Osmolality 292 mOsm/kg (285-295) 03/31/23 01:18 Calcium 8.9 mg/dL (8.5-10.5) 03/31/23 01:18 Total Bilirubin 0.6 mg/dL (0.15-1.2) 03/31/23 01:18 AST 31 U/L (0-32) 03/31/23 01:18 ALT 37 U/L (0-33) H 03/31/23 01:18 Alkaline Phosphatase 136 U/L (35-105) H 03/31/23 01:18 Total Protein 8.1 g/dL (6.6-8.7) 03/31/23 01:18 Albumin 4.3 g/dL (3.5-5.2) 03/31/23 01:18 Globulin 3.8 g/dL (1.3-4.6) 03/31/23 01:18 TSH 5.10 uIU/mL (0.27-4.20) H 03/31/23 01:18 Free T4 1.58 ng/dL (0.82-1.77) 03/31/23 01:18 HCG, Qual Negative (Negative) 03/31/23 01:29 Urine Color Light yellow (Yellow) 03/31/23 01:29 Urine Appearance Cloudy (CLEAR) A 03/31/23 01:29 Urine pH 5 (5-7) 03/31/23 01:29 Ur Specific [place] 1.020 (1.005-1.030) 03/31/23 01:29 Urine Protein 1+ (Negative) H 03/31/23 01:29 Urine Glucose (UA) 2+ (Normal) H 03/31/23 01:29 Urine Ketones 1+ (Negative) H 03/31/23 01:29 Urine Blood 2+ (Negative) H 03/31/23 01:29 Urine Nitrate Positive (Negative) H 03/31/23 01:29 Urine Bilirubin Neg (Negative) 03/31/23 01:29 Urine Urobilinogen Neg mg/dL (Negative) 03/31/23 01:29 Ur Leukocyte Esterase 2+ (Negative) H 03/31/23 01:29 Urine RBC 5-10 /hpf (0-2) H 03/31/23 01:29 Urine WBC 25-40 /hpf (0-5) H 03/31/23 01:29 Ur Squamous Epith Cells 5-10 /hpf (0-5) H 03/31/23 01:29 Amorphous Sediment Not Reportable 03/31/23 01:29 Urine Bacteria 4+ /hpf (NONE) H 03/31/23 01:29 Urine Mucus 3+ /hpf 03/31/23 01:29 Salicylates < 0.3 mg/dL (3-10) L 03/31/23 01:18 Urine Opiates Screen Negative ng/mL (Negative) 03/31/23 01:29 Acetaminophen < 5.0 ug/mL (10-30) L 03/31/23 01:18 Ur Barbiturates Screen Negative ng/mL (Negative) 03/31/23 01:29 Ur Phencyclidine Scrn Negative ng/mL (Negative) 03/31/23 01:29 Ur Amphetamines Screen Negative ng/mL (Negative) 03/31/23 01:29 U Benzodiazepines Scrn Negative ng/mL (Negative) 03/31/23 01:29 Urine Cocaine Screen Negative ng/mL (Negative) 03/31/23 01:29 U Marijuana (THC) Screen Negative ng/mL (Negative) 03/31/23 01:29 Ethyl Alcohol < 10 mg/dL (0-10) 03/31/23 01:18 SARS-CoV-2 Ag (Rapid) negative (Negative) 03/31/23 01:58 Discharge Plan Discharge Patient Disposition: Admitted As Inpatient Admit Provider: Simone Winn Clinical Impression: Suicidal ideation Condition: Stable Discharge Diet: Advance as tolerated Discharge Activity: Resume usual activity Coding Level of Care Code ED Engineering And Development Director for Chg Fwd Documented by User: Kendall Godfrey MD 03/31/23 18:04 HPI - Psych General: Chief Complaint: Psychiatric Symptoms Stated Complaint: 96 HOUR HOLD Time Seen by Provider: 03/31/23 00:58 Source: patient [facility] ED PFSH: Medical History Allergic rhinitis Benign essential HTN side effects with HCTZ and amlodipine, pt does not remember what they were. Gastroparesis GERD (gastroesophageal reflux disease) Hepatosplenomegaly Hypokalemia Hyponatremia Lesion of lung Liver fibrosis VALENZUELA (nonalcoholic steatohepatitis) Situational anxiety Sleep apnea Type 2 diabetes mellitus, without long-term current use of insulin metformin intolerance. Surgical History History of cholecystectomy Hx of bilateral salpingectomy Hx of section Hx of dilation and curettage Hx of hysterectomy Hx of tonsillectomy Hx of tubal ligation Family History Unknown No problems noted. Father Cardiac arrest Renal failure Diabetes Mother Stroke Grandmother Stroke Diabetes Hypertension Unknown No problems noted. Family/Other Diabetes Myocardial infarction Other Cancer Family history of thyroid problem Social History Smoking and tobacco status: never smoked Alcohol intake: never Substance/Drug Use: never Course Vital Signs: Vital signs: Vital Signs Temperature 97.9 F 04/03/23 14:41 Pulse Rate 90 04/03/23 14:41 Respiratory Rate 16 04/03/23 14:41 Blood Pressure 173/103 04/03/23 14:41 Pulse Oximetry 98 04/03/23 14:41 Oxygen Delivery Me thod Room Air 04/03/23 06:00 MDM - Psych Medical Decision Making 52-year-old lady presenting with court ordered 96-hour hold. Patient is calm and cooperative. Denies self-harm actions. Labs demonstrate no significant hematologic abnormalities. Metabolic panel with some evidence of dehydration and mild metabolic stress. TSH is elevated with free T4 within normal limits. Urine drug screen and toxic ingestions are negative. Urinalysis is not concerning for urinary tract infection given absence of urinary symptoms and evidence of squamous epithelial contamination. Current recommendations are to not treat asymptomatic bacteriuria. COVID negative. I will give the patient 1 L fluid bolus which I expect to significantly improve patient's metabolic panel. Ultimately findings on metabolic panel would not explain mental health or psychiatric symptoms. Given physical exam and clinical history provided there is no indication for imaging at this time. Based on ED evaluation at this point there is no obvious condition that would preclude the patient from inpatient management of psychiatric concerns/symptoms. There is significant discrepancy between documented affidavit and patient reported history as mentioned. As such the patient will be assessed by psychiatry service for further recommendations. Handed off to morning ED physician pending psychiatry recommendations and disposition as deemed appropriate. Patient presents here with depression and made statements was brought in under 96 by her daughter patient has been evaluated by Dr. Winn who wants to admit her. Lab Data 03/31/23 01:18 03/31/23 01:18 Laboratory Results WBC 14.0 10^3/uL (4.0-10.0) H 03/31/23 01:18 RBC 4.35 10^6/uL (4.1-5.3) 03/31/23 01:18 Hgb 13.0 g/dL (11.5-15.3) 03/31/23 01:18 Hct 38.2 % (37.0-47.0) 03/31/23 01:18 MCV 87.8 fl (81-99) 03/31/23 01:18 MCH 29.9 pg (28.0-34.0) 03/31/23 01:18 MCHC 34.0 g/dL (30.0-36.0) 03/31/23 01:18 RDW 14.7 % (12.1-15.1) 03/31/23 01:18 Plt Count 354 10^3/cmm (130-400) 03/31/23 01:18 MPV 10.3 fL (7.4-10.4) 03/31/23 01:18 Neut % (Auto) 52.8 % 03/31/23 01:18 Lymph % (Auto) 38.2 % 03/31/23 01:18 [place] % (Auto) 6.3 % 03/31/23 01:18 Eos % (Auto) 1.5 % 03/31/23 01:18 Baso % (Auto) 0.6 % 03/31/23 01:18 Neut # (Auto) 7.40 10^3/uL (1.8-7.7) 03/31/23 01:18 Lymph # (Auto) 5.4 10^3/uL (0.8-4.8) H 03/31/23 01:18 [place] # (Auto) 0.9 10^3/uL (0.2-0.9) 03/31/23 01:18 Eos # (Auto) 0.2 10^3/uL (0.0-0.8) 03/31/23 01:18 Baso # (Auto) 0.1 10^3/uL (0.0-0.1) 03/31/23 01:18 Nucleated RBC % (auto) 0 % 03/31/23 01:18 Nucleated RBCs # 0.0 /100WBC 03/31/23 01:18 Sodium 132 mmol/L (136-145) L 03/31/23 01:18 Potassium 3.5 mmol/L (3.5-5.1) 03/31/23 01:18 Chloride 92 mmol/L (98-107) L 03/31/23 01:18 Carbon Dioxide 23 mmol/L (22-29) 03/31/23 01:18 Anion Gap 20.5 (5-19) H 03/31/23 01:18 BUN 29 mg/dL (6-20) H 03/31/23 01:18 Creatinine 1.6 mg/dL (0.5-0.9) H 03/31/23 01:18 GFR Calculation 33.6 mL/min (90-130) L 03/31/23 01:18 Glucose 320 mg/dL (65-115) H 03/31/23 01:18 Calculated Osmolality 292 mOsm/kg (285-295) 03/31/23 01:18 Calcium 8.9 mg/dL (8.5-10.5) 03/31/23 01:18 Total Bilirubin 0.6 mg/dL (0.15-1.2) 03/31/23 01:18 AST 31 U/L (0-32) 03/31/23 01:18 ALT 37 U/L (0-33) H 03/31/23 01:18 Alkaline Phosphatase 136 U/L (35-105) H 03/31/23 01:18 Total Protein 8.1 g/dL (6.6-8.7) 03/31/23 01:18 Albumin 4.3 g/dL (3.5-5.2) 03/31/23 01:18 Globulin 3.8 g/dL (1.3-4.6) 03/31/23 01:18 TSH 5.10 uIU/mL (0.27-4.20) H 03/31/23 01:18 Free T4 1.58 ng/dL (0.82-1.77) 03/31/23 01:18 HCG, Qual Negative (Negative) 03/31/23: Urine Color Light yellow (Yellow) 03/31/23 01:29 Urine Appearance Cloudy (CLEAR) A 03/31/23 01:29 Urine pH 5 (5-7) 03/31/23 01:29 Ur Specific [place] 1.020 (1.005-1.030) 03/31/23 01: Urine Protein 1+ (Negative) H 03/31/23 01: Urine Glucose (UA) 2+ (Normal) H 03/31/23 01: Urine Ketones 1+ (Negative) H 03/31/23 01: Urine Blood 2+ (Negative) H 03/31/23 01: Urine Nitrate Positive (Negative) H 03/31/23 01: Urine Bilirubin Neg (Negative) 03/31/23 01: Urine Urobilinogen Neg mg/dL (Negative) 03/31/23 01:29 Ur Leukocyte Esterase 2+ (Negative) H 03/31/23 01: Urine RBC 5-10 /hpf (0-2) H 06/28/23 01:29 Urine WBC 25-40 /hpf (0-5) H 03/31/23 01:29 Ur Squamous Epith Cells 5-10 /hpf (0-5) H 03/31/23 01:29 Amorphous Sediment Not Reportable 03/31/23 01:29 Urine Bacteria 4+ /hpf (NONE) H 03/31/23 01:29 Urine Mucus 3+ /hpf 03/31/23 01:29 Salicylates < 0.3 mg/dL (3-10) L 03/31/23 01:18 Urine Opiates Screen Negative ng/mL (Negative) 03/31/23 01:29 Acetaminophen < 5.0 ug/mL (10-30) L 03/31/23 01:18 Ur Barbiturates Screen Negative ng/mL (Negative) 03/31/23 01:29 Ur Phencyclidine Scrn Negative ng/mL (Negative) 03/31/23 01:29 Ur Amphetamines Screen Negative ng/mL (Negative) 03/31/23 01:29 U Benzodiazepines Scrn Negative ng/mL (Negative) 03/31/23 01:29 Urine Cocaine Screen Negative ng/mL (Negative) 03/31/23 01:29 U Marijuana (THC) Screen Negative ng/mL (Negative) 03/31/23 01:29 Ethyl Alcohol < 10 mg/dL (0-10) 03/31/23 01:18 SARS-CoV-2 Ag (Rapid) negative (Negative) 03/31/23 01:58 Discharge Plan Discharge Patient Disposition: Admitted As Inpatient Admit Provider: Simone Winn Clinical Impression: Suicidal ideation Condition: Stable Discharge Diet: Advance as tolerated Discharge Activity: Resume usual activity Coding Level of Care Code ED Engineering And Development Director for [place] De Oliveira
[2023-03-31 01:23] LABS: Basophils # 0.1 10^3/uL (0.0-0.1); Basophils % 0.6 %; Eosinophils # 0.2 10^3/uL (0.0-0.8); Eosinophils % 1.5 %; Hematocrit 38.2 % (37.0-47.0); Lymphocytes # 5.4 10^3/uL (0.8-4.8); Lymphocytes % 38.2 %; Mean Corpuscular Hemoglobin 29.9 pg (28.0-34.0); Mean Corpuscular Volume 87.8 fl (81-99); Mean Platelet Volume 10.3 fL (7.4-10.4); Monocytes # 0.9 10^3/uL (0.2-0.9); Monocytes % 6.3 %; Neutrophils % 52.8 %; Nucleated Red Blood Cells % 0 %; Platelet Count 354 10^3/cmm (130-400); Red Blood Count 4.35 10^6/uL (4.1-5.3); Red Cell Distribution Width 14.7 % (12.1-15.1)
[2023-03-31 01:37] LABS: HCG Qualitative Urine. Negative (Negative)
[2023-03-31 01:52] LABS: Acetaminophen < 5.0 ug/mL (10-30); Alanine Aminotransferase 37 U/L (0-33); Albumin Level 4.3 g/dL (3.5-5.2); Alcohol Level < 10 mg/dL (0-10); Alkaline Phosphatase 136 U/L (35-105); Anion Gap 20.5 (5-19); Aspartate Amino Transferase 31 U/L (0-32); Blood Urea Nitrogen 29 mg/dL (6-20); Calcium 8.9 mg/dL (8.5-10.5); Carbon Dioxide 23 mmol/L (22-29); Chloride 92 mmol/L (98-107); Globulin 3.8 g/dL (1.3-4.6); Glomerular Filtration Rate 33.6 mL/min (90-130); Glucose 320 mg/dL (65-115); Osmolality Calculated 292 mOsm/kg (285-295); Potassium 3.5 mmol/L (3.5-5.1); Salicylate < 0.3 mg/dL (3-10); Sodium 132 mmol/L (136-145); Total Bilirubin 0.6 mg/dL (0.15-1.2); Total Protein 8.1 g/dL (6.6-8.7)
--- NOTE | 2023-03-31 01:56 | ECG_ITS ---
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 Measurements Intervals [place] Rate: 99 P: 53 CO: 150 QRS: 7 QRSD: 102 T: 69 QT: 366 QTc: 470 Interpretive Statements SINUS RHYTHM NONSPECIFIC T-WAVE ABNORMALITY Compared to ECG 11/11/2022 02:42:41 No significant changes Electronically Signed On 04-01-2023 10:05:40 CDT by Kasey Mckeon M.D. [email or web address]
[2023-03-31 02:09] LABS: Protein Urine 1+ (Negative); Urine Appearance Cloudy (CLEAR); Urine Color Light yellow (Yellow); pH Urine 5 (5-7)
[2023-03-31 02:10] LABS: Add Urine Culture? Yes; Add Urine Microscopic? YES; Bacteria Urine 4+ /hpf; Bilirubin Urine Neg (Negative); Blood Urine 2+ (Negative); Glucose Urine UA 2+ (Normal); Ketones Urine 1+ (Negative); Leukocyte Esterase Urine 2+ (Negative); Mucus Urine 3+ /hpf; Nitrate Urine Positive (Negative); Urobilinogen Urine Neg (Negative); WBC Urine 25-40 /hpf (0-5)
[2023-03-31 02:14] LABS: Amphetamines Screen Urine Negative (Negative); Barbiturates Screen Urine Negative (Negative); Benzodiazepines Screen Urine Negative (Negative); Cocaine Screen Urine Negative (Negative); Opiate Screen Urine Negative (Negative); PCP Screen Urine Negative (Negative); THC Screen Urine Negative (Negative)
[2023-03-31 02:19] LABS: SARS Covid-2 Antigen negative (Negative)
[2023-03-31] MEDS: sodium chloride 0.9% 1,000 ML 999 ML IV (02:27)
[2023-03-31 02:32] LABS: Free T4 Free Thyroxine 1.58 ng/dL (0.82-1.77)
[2023-03-31] MEDS: tizanidine 4 mg Tablet PO ×2 (02:44→15:34)
[2023-03-31] MEDS: hydroCHLOROthiazide 25 mg Tablet PO (06:36)
[2023-03-31] MEDS: losartan 50 mg Tablet 100 MG PO (06:36)
[2023-03-31] MEDS: carvedilol 6.25 mg Tablet PO (06:36)
[2023-03-31] MEDS: acetaminophen 500 mg Tablet 1000 MG PO ×2 (07:25→15:34)
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
[2023-03-31] MEDS: carvedilol 3.125 mg Tablet PO (19:51)
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
[2023-04-01] MEDS: losartan 50 mg Tablet 100 MG PO (05:03)
[2023-04-01] MEDS: hydroCHLOROthiazide 25 mg Tablet PO (05:04)
[2023-04-01] MEDS: carvedilol 6.25 mg Tablet PO (05:04)
[2023-04-01] MEDS: acetaminophen 500 mg Tablet 1000 MG PO ×2 (05:04→18:01)
[2023-04-01] MEDS: tizanidine 4 mg Tablet PO (05:04)
[2023-04-01 06:00] VITALS: BP 122/84; PULSE 87; RESP 16; TEMP 36.6; O2SAT 98
[2023-04-01] MEDS: fluticasone nasal spray 16gm Btl 2 SPRAY INTRANASAL ×2 (08:53→18:00)
[2023-04-01] MEDS: diphenhydrAMINE 25 mg Capsule PO ×2 (08:54→18:00)
[2023-04-01] MEDS: pantoprazole DR 40 mg Tablet PO ×2 (08:54→18:00)
[2023-04-01 14:00] VITALS: BP 161/102; PULSE 95; RESP 16; TEMP 36.8; O2SAT 99
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
[2023-04-01] MEDS: carvedilol 3.125 mg Tablet PO (18:00)
[2023-04-01 22:00] VITALS: BP 166/106; PULSE 102; RESP 18; TEMP 37; O2SAT 98
[2023-04-02 05:27] VITALS: BP 140/88
[2023-04-02] MEDS: losartan 50 mg Tablet 100 MG PO (05:27)
[2023-04-02] MEDS: hydroCHLOROthiazide 25 mg Tablet PO (05:28)
[2023-04-02] MEDS: carvedilol 6.25 mg Tablet PO (05:28)
[2023-04-02] MEDS: acetaminophen 325 mg Tablet 650 MG PO (05:28)
[2023-04-02 05:36] VITALS: BP 140/88; PULSE 117; RESP 16; O2SAT 98
[2023-04-02] MEDS: fluticasone nasal spray 16gm Btl 2 SPRAY INTRANASAL ×2 (09:20→18:30)
[2023-04-02] MEDS: acetaminophen 500 mg Tablet 1000 MG PO ×2 (09:20→18:29)
[2023-04-02] MEDS: pantoprazole DR 40 mg Tablet PO ×2 (09:20→18:29)
[2023-04-02] MEDS: diphenhydrAMINE 25 mg Capsule PO ×2 (09:20→18:29)
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
[2023-04-02 14:00] VITALS: BP 163/107; PULSE 103; RESP 18; TEMP 36.6; O2SAT 97
[2023-04-02] MEDS: carvedilol 3.125 mg Tablet PO (18:29)
[2023-04-02] MEDS: tizanidine 4 mg Tablet PO (18:29)
[2023-04-02 22:00] VITALS: BP 144/89; PULSE 99; RESP 17; TEMP 37.1; O2SAT 97
[2023-04-03] MEDS: acetaminophen 325 mg Tablet 650 MG PO (05:28)
[2023-04-03] MEDS: tizanidine 4 mg Tablet PO (05:29)
[2023-04-03] MEDS: carvedilol 6.25 mg Tablet PO (05:45)
[2023-04-03 05:46] VITALS: BP 171/122
[2023-04-03] MEDS: losartan 50 mg Tablet 100 MG PO (05:46)
[2023-04-03] MEDS: hydroCHLOROthiazide 25 mg Tablet PO (05:46)
[2023-04-03 06:00] VITALS: BP 145/91; PULSE 86; RESP 18; TEMP 36.6; O2SAT 98
[2023-04-03] MEDS: acetaminophen 500 mg Tablet 1000 MG PO (08:38)
[2023-04-03] MEDS: diphenhydrAMINE 25 mg Capsule PO (08:39)
[2023-04-03] MEDS: pantoprazole DR 40 mg Tablet PO (08:39)
[2023-04-03] MEDS: fluticasone nasal spray 16gm Btl 2 SPRAY INTRANASAL (08:41)
[2023-04-03 13:46] VITALS: BP 173/103; PULSE 90; RESP 16; TEMP 36.6; O2SAT 98
[2023-04-03 14:41] VITALS: BP 173/103; PULSE 90; RESP 16; TEMP 36.6; O2SAT 98
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
== END 2023-04-03 16:35 | disposition home or self-care (01) | DRG 880 ==
LOC: ER 18:04 → NP 18:39
PROVIDERS: Emergency Medicine; Admitting Provider Psychiatry & Neurology Psychiatry; Emergency Provider Emergency Medicine; PCP Family Medicine; Visit Provider Psychiatry & Neurology Psychiatry
DX: F41.8 Other specified anxiety disorders (principal); R45.851 Suicidal ideations; E86.0 Dehydration; Z63.0 Problems in relationship with spouse or partner; K74.00 Hepatic fibrosis, unspecified; K75.81 Nonalcoholic steatohepatitis (NASH); I10 Essential (primary) hypertension; K21.9 Gastro-esophageal reflux disease without esophagitis; E11.9 Type 2 diabetes mellitus without complications; Z79.84 Long term (current) use of oral hypoglycemic drugs
CPT/HCPCS: 80053; 80306; 80307; 81001; 81025; 84439; 84443; 85025; 87077; 87086; 87186; 87426; 93005; 97150; 97165; 99238; 99285; J7030

== ENCOUNTER → 2023-04-07 08:31 | Outpatient (BNVA) | payer BC, SELFPAY | PROVIDERS: PCP Family Medicine; Visit Provider Family Medicine | DX: R30.0 Dysuria (principal); E03.9 Hypothyroidism, unspecified; E11.9 Type 2 diabetes mellitus without complications; I10 Essential (primary) hypertension | CPT/HCPCS: 80053; 80061; 81000; 83036; 84443; 84481; 87077; 87086; 87184 ==

== ENCOUNTER 2023-04-24 14:22 | Emergency (ER) | payer BC, SELFPAY ==
[2023-04-24] VITALS (9 sets, daily range): BP systolic 106–202; BP diastolic 99–145; PULSE 89–117; RESP 18–20; O2SAT 91–99
--- NOTE | 2023-04-24 14:25 | ED_ITS ---
Documented by User: Taras Melgar MD 05/07/23 11:46 HPI - Chest Pain General: Chief Complaint: Chest Pain Stated Complaint: CHEST PAIN Time Seen by Provider: 04/24/23 14:25 History of Present Illness: Ms. Prince is a 52-year-old lady presented emergency department for evaluation of chest pain. Onset of symptoms approximately 1 hour prior to arrival during an argument with her . Not severe substernal pain with radiation to the back and back of her head. Associated shortness of breath. Moderate intensity. Persistent course. No other specific changes in health, exacerbating, or alleviating factors identified. Onset (ago): minute(s) Onset: during exertion Pain location: substernal Pain radiation: back and neck Severity: moderate Quality: sharp Exacerbating factors: nothing Context: other Review of Systems General: Reports: 10 or more systems reviewed and unremarkable except in HPI and below PFSH ED PFSH: Medical History Allergic rhinitis Benign essential HTN side effects with HCTZ and amlodipine, pt does not remember what they were. Gastroparesis GERD (gastroesophageal reflux disease) Hepatosplenomegaly Hypokalemia Hyponatremia Lesion of lung Liver fibrosis MARTIN (nonalcoholic steatohepatitis) Psychiatric care Situational anxiety Sleep apnea Type 2 diabetes mellitus, without long-term current use of insulin metformin intolerance. Surgical History History of cholecystectomy Hx of bilateral salpingectomy Hx of section Hx of dilation and curettage Hx of hysterectomy Hx of tonsillectomy Hx of tubal ligation Family History Unknown No problems noted. Father Cardiac arrest Renal failure Diabetes Mother Stroke Grandmother Stroke Diabetes Hypertension Unknown No problems noted. Family/Other Diabetes Myocardial infarction Other Cancer Family history of thyroid problem Social History Smoking and tobacco status: never smoked Alcohol intake: never Substance/Drug Use: never Physical Exam Const: COMMON NORMALS: alert GENERAL APPEARANCE: cooperative and well developed HENMT: COMMON NORMALS: normocephalic and atraumatic HEAD & SCALP: normocephalic and atraumatic Eye: COMMON NORMALS: conjunctivae normal CONJUNCTIVA: Yes conjunctivae normal SCLERA: sclerae normal Neck/C-Spine: COMMON NORMALS: supple GENERAL: Yes trachea midline Resp: COMMON NORMALS: clear to auscultation bilaterally EFFORT & INSPECTION: Yes able to speak in complete sentences AUSCULTATION: clear to auscultation bilaterally Cardio: COMMON NORMALS: regular rate and regular rhythm RATE: regular rate RHYTHM: regular rhythm GI: COMMON NORMALS: Soft to palpation PALPATION: Yes Soft to palpation and No Tenderness to palpation present (GI) Extremity: GENERAL: Yes normal exam except as noted and No edema Neuro: COMMON NORMALS: moves all extremities SENSORIUM/ORIENTATION: Yes alert and No Orientation impaired Psych: COMMON NORMALS: mental status grossly normal and Normal thought process present MOOD & AFFECT: Yes anxious and Yes tearful THOUGHT PROCESS: Normal thought process present Course Vital Signs: Vital signs: Vital Signs Pulse Rate 89 04/24/23 19:06 Respiratory Rate 18 04/24/23 18:49 Blood Pressure 162/99 04/24/23 19:06 Pulse Oximetry 99 04/24/23 19:06 Oxygen Delivery Me thod Room Air 04/24/23 18:30 MDM - Chest Pain Medical Decision Making 52-year-old lady presenting for evaluation of chest pain. Exam as above. Nontoxic. EKG notable for sinus tachycardia with normal axis and other intervals, no STEMI. Labs with minimal leukocytosis, normal hemoglobin and platelet count. Metabolic panel with perhaps mild evidence of dehydration though patient is able to tolerate p.o. intake. Minimal transaminitis similar to prior. Handed off to Dr. Godfrey pending 2-hour troponin results. Likely plan for discharge. Took patient over from Dr. Duggan pending 2-hour troponin her blood work here is normal D-dimer is negative troponin is negative no signs of acute coronary syndrome. She has no signs of dissection or pulmonary embolism she is stable fo r discharge she follow-up with PCP and return if worsening. Medical Records I reviewed the patient's medical records. Lab Data I reviewed the patient's lab results. 04/24/23 15:56 04/24/23 15:56 Radiology Impressions Chest X-Ray 04/24/23 14:39 IMPRESSION: No acute findings. Laboratory Results WBC 11.4 10^3/uL (4.0-10.0) H 04/24/23 15:56 RBC 3.89 10^6/uL (4.1-5.3) L 04/24/23 15:56 Hgb 12.0 g/dL (11.5-15.3) 04/24/23 15:56 Hct 33.6 % (37.0-47.0) L 04/24/23 15:56 MCV 86.4 fl (81-99) 04/24/23 15:56 MCH 30.8 pg (28.0-34.0) 04/24/23 15:56 MCHC 35.7 g/dL (30.0-36.0) 04/24/23 15:56 RDW 14.1 % (12.1-15.1) 04/24/23 15:56 Plt Count 393 10^3/cmm (130-400) 04/24/23 15:56 MPV 10.5 fL (7.4-10.4) H 04/24/23 15:56 Neut % (Auto) 56.5 % 04/24/23 15:56 Lymph % (Auto) 33.9 % 04/24/23 15:56 Adams % (Auto) 5.3 % 04/24/23 15:56 Eos % (Auto) 1.7 % 04/24/23 15:56 Baso % (Auto) 0.5 % 04/24/23 15:56 Neut # (Auto) 6.45 10^3/uL (1.8-7.7) 04/24/23 15:56 Lymph # (Auto) 3.9 10^3/uL (0.8-4.8) 04/24/23 15:56 Adams # (Auto) 0.6 10^3/uL (0.2-0.9) 04/24/23 15:56 Eos # (Auto) 0.2 10^3/uL (0.0-0.8) 04/24/23 15:56 Baso # (Auto) 0.1 10^3/uL (0.0-0.1) 04/24/23 15:56 Nucleated RBC % (auto) 0 % 04/24/23 15:56 Nucleated RBCs # 0.0 /100WBC 04/24/23 15:56 D-Dimer 0.34 ug/mIFEU (0-0.59) 04/24/23 15:56 Sodium 139 mmol/L (136-145) 04/24/23 15:56 Potassium 4.0 mmol/L (3.5-5.1) 04/24/23 15:56 Chloride 106 mmol/L (98-107) 04/24/23 15:56 Carbon Dioxide 18 mmol/L (22-29) L 04/24/23 15:56 Anion Gap 19.0 (5-19) 04/24/23 15:56 BUN 18 mg/dL (6-20) 04/24/23 15:56 Creatinine 1.0 mg/dL (0.5-0.9) H 04/24/23 15:56 GFR Calculation 57.8 mL/min (90-130) L 04/24/23 15:56 Glucose 225 mg/dL (65-115) H 04/24/23 15:56 Calculated Osmolality 297 mOsm/kg (285-295) H 04/24/23 15:56 Calcium 8.5 mg/dL (8.5-10.5) 04/24/23 15:56 Total Bilirubin 0.3 mg/dL (0.15-1.2) 04/24/23 15:56 AST 43 U/L (0-32) H 04/24/23 15:56 ALT 54 U/L (0-33) H 04/24/23 15:56 Alkaline Phosphatase 157 U/L (35-105) H 04/24/23 15:56 Troponin T Baseline 10 ng/L (0-10) 04/24/23 15:56 Troponin T 120 Minute 10.85 ng/L (0-10) H 04/24/23 18:00 Delta Troponin T 0.85 ABS# (0-10) 04/24/23 18:00 NT-Pro-B Natriuret Pep 83 pg/mL (0-125) 04/24/23 15:56 Total Protein 6.8 g/dL (6.6-8.7) 04/24/23 15:56 Albumin 4.0 g/dL (3.5-5.2) 04/24/23 15:56 Globulin 2.8 g/dL (1.3-4.6) 04/24/23 15:56 Lipase 49 U/L (13-60) 04/24/23 15:56 Urine Color Straw (Yellow) 04/24/23 17:20 Urine Appearance Clear (CLEAR) 04/24/23 17:20 Urine pH 5 (5-7) 04/24/23 17:20 Ur Specific [place] 1.020 (1.005-1.030) 04/24/23 17:20 Urine Protein Neg (Negative) 04/24/23 17:20 Urine Glucose (UA) Norm (Normal) 04/24/23 17:20 Urine Ketones Negative (Negative) 04/24/23 17:20 Urine Blood Neg (Negative) 04/24/23 17:20 Urine Nitrate Negative (Negative) 04/24/23 17:20 Urine Bilirubin Neg (Negative) 04/24/23 17:20 Urine Urobilinogen Norm mg/dL (Negative) 04/24/23 17:20 Ur Leukocyte Esterase Negative (Negative) 04/24/23 17:20 Discharge Plan Discharge Patient Disposition: Home Clinical Impression: Chest pain Condition: Stable Prescriptions: No Action tizanidine 4 mg tablet 4 mg PO TID PRN (Reason: muscle spasticity) 30 Days Qty: 90 2RF losartan 100 mg tablet 100 mg PO DAILY 30 Days Qty: 30 2RF hydrochlorothiazide 25 mg tablet 25 mg PO QAM 30 Days Qty: 30 2RF nervive 1 tab PO QAM fluticasone propionate 50 mcg/actuation spray,suspension 2 spray INTRANASAL DAILY Qty: 16 0RF Rx Instructions: administer into each nostril miscellaneous medical supply Misc See Rx Instructions miscellaneous .COMPLEX Qty: 1 0RF Rx Instructions: rolling walker with seat as directed; pantoprazole 40 mg tablet,delayed release (DR/EC) 40 mg PO BID 90 Days Qty: 180 1RF (DME) OneTouch Ultra Test Strip See Rx Instructions .ROUTE .COMPLEX Qty: 100 5RF Dose Instruction: USE DIRECTED Rx Instructions: USE DIRECTED acetaminophen [Tylenol Extra Strength] 500 mg Tablet 1,000 mg PO BID diphenhydramine HCl [Benadryl] 25 mg Capsule 25 mg PO BID echinacea 500 mg Capsule 500 mg PO BID Rx Instructions: administer with meals dulaglutide 1.5 mg/0.5 mL pen injector 1.5 mg SUBCUT Q7D Rx Instructions: on wednesday Anna-Garlic Juice-Apple Cide See Rx Instructions .ROUTE .COMPLEX Rx Instructions: one capful with 2 oz of water and drink as needed for leg cramps carvedilol 6.25 mg tablet See Rx Instructions .ROUTE .COMPLEX Rx Instructions: 1 tab in AM and 0.5 tab in PM hydrocodone-acetaminophen 5-325 mg tablet 1 tab PO Q6H PRN (Reason: pain) Qty: 14 0RF ondansetron 4 mg tablet,disintegrating 4 mg PO Q6H PRN (Reason: nausea and vomiting) Qty: 14 0RF Discharge Orders: Discharge ED (Routine); Ordered 04/24/23 Ordered By: Kendall Godfrey Referrals: Susy Winn MD [Primary Care Provider] - Discharge Diet: Usual diet Discharge Activity: Resume usual activity Patient Instructions: Chest Pain (ED) Activity Restrictions/Additional Instructions: Thank you for visiting the emergency department. You were seen and evaluated for chest pain. The exact cause of your symptoms is unclear however does not ap pear to need hospitalization at this time. Follow-up with your primary care provider. Follow-up with cardiology. Return for anything that you are concerned about and feel needs emergency department evaluation. 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 Gastroparesis GERD (gastroesophageal reflux disease) Hepatosplenomegaly Hypokalemia Hyponatremia Lesion of lung Liver fibrosis MARTIN (nonalcoholic steatohepatitis) Psychiatric care Situational anxiety Sleep apnea Type 2 diabetes mellitus, without long-term current use of insulin metformin intolerance. Surgical History History of cholecystectomy Hx of bilateral salpingectomy Hx of section Hx of dilation and curettage Hx of hysterectomy Hx of tonsillectomy Hx of tubal ligation Family History Unknown No problems noted. Father Cardiac arrest Renal failure Diabetes Mother Stroke Grandmother Stroke Diabetes Hypertension Unknown No problems noted. Family/Other Diabetes Myocardial infarction Other Cancer Family history of thyroid problem Social History Smoking and tobacco status: never smoked Alcohol intake: never Substance/Drug Use: never Course Vital Signs: Vital signs: Vital Signs Pulse Rate 89 04/24/23 19:06 Respiratory Rate 18 04/24/23 18:49 Blood Pressure 162/99 04/24/23 19:06 Pulse Oximetry 99 04/24/23 19:06 Oxygen Delivery Me thod Room Air 04/24/23 18:30 MDM - Chest Pain Medical Decision Making Took patient over from Dr. Duggan pending 2-hour troponin her blood work here is normal D-dimer is negative troponin is negative no signs of acute coronary syndrome. She has no signs of dissection or pulmonary embolism she is stable for discharge she follow-up with PCP and return if worsening. Lab Data 04/24/23 15:56 04/24/23 15:56 Radiology Impressions Chest X-Ray 04/24/23 14:39 IMPRESSION: No acute findings. Laboratory Results WBC 11.4 10^3/uL (4.0-10.0) H 04/24/23 15:56 RBC 3.89 10^6/uL (4.1-5.3) L 04/24/23 15:56 Hgb 12.0 g/dL (11.5-15.3) 04/24/23 15:56 Hct 33.6 % (37.0-47.0) L 04/24/23 15:56 MCV 86.4 fl (81-99) 04/24/23 15:56 MCH 30.8 pg (28.0-34.0) 04/24/23 15:56 MCHC 35.7 g/dL (30.0-36.0) 04/24/23 15:56 RDW 14.1 % (12.1-15.1) 04/24/23 15:56 Plt Count 393 10^3/cmm (130-400) 04/24/23 15:56 MPV 10.5 fL (7.4-10.4) H 04/24/23 15:56 Neut % (Auto) 56.5 % 04/24/23 15:56 Lymph % (Auto) 33.9 % 04/24/23 15:56 Adams % (Auto) 5.3 % 04/24/23 15:56 Eos % (Auto) 1.7 % 04/24/23 15:56 Baso % (Auto) 0.5 % 04/24/23 15:56 Neut # (Auto) 6.45 10^3/uL (1.8-7.7) 04/24/23 15:56 Lymph # (Auto) 3.9 10^3/uL (0.8-4.8) 04/24/23 15:56 Adams # (Auto) 0.6 10^3/uL (0.2-0.9) 04/24/23 15:56 Eos # (Auto) 0.2 10^3/uL (0.0-0.8) 04/24/23 15:56 Baso # (Auto) 0.1 10^3/uL (0.0-0.1) 04/24/23 15:56 Nucleated RBC % (auto) 0 % 04/24/23 15:56 Nucleated RBCs # 0.0 /100WBC 04/24/23 15:56 D-Dimer 0.34 ug/mIFEU (0-0.59) 04/24/23 15:56 Sodium 139 mmol/L (136-145) 04/24/23 15:56 Potassium 4.0 mmol/L (3.5-5.1) 04/24/23 15:56 Chloride 106 mmol/L (98-107) 04/24/23 15:56 Carbon Dioxide 18 mmol/L (22-29) L 04/24/23 15:56 Anion Gap 19.0 (5-19) 04/24/23 15:56 BUN 18 mg/dL (6-20) 04/24/23 15:56 Creatinine 1.0 mg/dL (0.5-0.9) H 04/24/23 15:56 GFR Calculation 57.8 mL/min (90-130) L 04/24/23 15:56 Glucose 225 mg/dL (65-115) H 04/24/23 15:56 Calculated Osmolality 297 mOsm/kg (285-295) H 04/24/23 15:56 Calcium 8.5 mg/dL (8.5-10.5) 04/24/23 15:56 Total Bilirubin 0.3 mg/dL (0.15-1.2) 04/24/23 15:56 AST 43 U/L (0-32) H 04/24/23 15:56 ALT 54 U/L (0-33) H 04/24/23 15:56 Alkaline Phosphatase 157 U/L (35-105) H 04/24/23 15:56 Troponin T Baseline 10 ng/L (0-10) 04/24/23 15:56 Troponin T 120 Minute 10.85 ng/L (0-10) H 04/24/23 18:00 Delta Troponin T 0.85 ABS# (0-10) 04/24/23 18:00 NT-Pro-B Natriuret Pep 83 pg/mL (0-125) 04/24/23 15:56 Total Protein 6.8 g/dL (6.6-8.7) 04/24/23 15:56 Albumin 4.0 g/dL (3.5-5.2) 04/24/23 15:56 Globulin 2.8 g/dL (1.3-4.6) 04/24/23 15:56 Lipase 49 U/L (13-60) 04/24/23 15:56 Urine Color Straw (Yellow) 04/24/23 17:20 Urine Appearance Clear (CLEAR) 04/24/23 17:20 Urine pH 5 (5-7) 04/24/23 17:20 Ur Specific [place] 1.020 (1.005-1.030) 04/24/23 17:20 Urine Protein Neg (Negative) 04/24/23 17:20 Urine Glucose (UA) Norm (Normal) 04/24/23 17:20 Urine Ketones Negative (Negative) 04/24/23 17:20 Urine Blood Neg (Negative) 04/24/23 17:20 Urine Nitrate Negative (Negative) 04/24/23 17:20 Urine Bilirubin Neg (Negative) 04/24/23 17:20 Urine Urobilinogen Norm mg/dL (Negative) 04/24/23 17:20 Ur Leukocyte Esterase Negative (Negative) 04/24/23 17:20 Discharge Plan Discharge Patient Disposition: Home Clinical Impression: Chest pain Condition: Stable Prescriptions: No Action tizanidine 4 mg tablet 4 mg PO TID PRN (Reason: muscle spasticity) 30 Days Qty: 90 2RF losartan 100 mg tablet 100 mg PO DAILY 30 Days Qty: 30 2RF hydrochlorothiazide 25 mg tablet 25 mg PO QAM 30 Days Qty: 30 2RF nervive 1 tab PO QAM fluticasone propionate 50 mcg/actuation spray,suspension 2 spray INTRANASAL DAILY Qty: 16 0RF Rx Instructions: administer into each nostril miscellaneous medical supply Misc See Rx Instructions miscellaneous .COMPLEX Qty: 1 0RF Rx Instructions: rolling walker with seat as directed; pantoprazole 40 mg tablet,delayed release (DR/EC) 40 mg PO BID 90 Days Qty: 180 1RF (DME) OneTouch Ultra Test Strip See Rx Instructions .ROUTE .COMPLEX Qty: 100 5RF Dose Instruction: USE DIRECTED Rx Instructions: USE DIRECTED acetaminophen [Tylenol Extra Strength] 500 mg Tablet 1,000 mg PO BID diphenhydramine HCl [Benadryl] 25 mg Capsule 25 mg PO BID echinacea 500 mg Capsule 500 mg PO BID Rx Instructions: administer with meals dulaglutide 1.5 mg/0.5 mL pen injector 1.5 mg SUBCUT Q7D Rx Instructions: on wednesday Anna-Garlic Juice-Apple Cide See Rx Instructions .ROUTE .COMPLEX Rx Instructions: one capful with 2 oz of water and drink as needed for leg cramps carvedilol 6.25 mg tablet See Rx Instructions .ROUTE .COMPLEX Rx Instructions: 1 tab in AM and 0.5 tab in PM hydrocodone-acetaminophen 5-325 mg tablet 1 tab PO Q6H PRN (Reason: pain) Qty: 14 0RF ondansetron 4 mg tablet,disintegrating 4 mg PO Q6H PRN (Reason: nausea and vomiting) Qty: 14 0RF Discharge Orders: Discharge ED (Routine); Ordered 04/24/23 Ordered By: Kendall Godfrey Referrals: Susy Winn MD [Primary Care Provider] - Discharge Diet: Usual diet Discharge Activity: Resume usual activity Patient Instructions: Chest Pain (ED) Activity Restrictions/Additional Instructions: Thank you for visiting the emergency department. You were seen and evaluated for chest pain. The exact cause of your symptoms is unclear however does not appear to need hospitalization at this time. Follow-up with your primary care provider. Follow-up with cardiology. Return for anything that you are concerned about and feel needs emergency d epartment evaluation. 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
--- NOTE | 2023-04-24 14:30 | ECG_ITS ---
[facility] Test Date: 2023-04-24 Pat Name: Vaishali Jean Department: Room: Gender: Female Participant Administrator: : 1970 Requested By: Taras Melgar Order Number: [id number] Mary Lou MD: Kath Colon M.D. Measurements Intervals [place] Rate: 120 P: 76 CA: 155 QRS: 52 QRSD: 89 T: 78 QT: 419 QTc: 593 Interpretive Statements SINUS TACHYCARDIA NONSPECIFIC T-WAVE ABNORMALITY ABNORMAL RHYTHM ECG Compared to ECG 03/31/2023 01:56:34 Sinus rhythm no longer present T-wave abnormality still present Electronically Signed On 04-25-2023 11:24:40 CDT by Kath Colon M.D. [id number] f
--- NOTE | 2023-04-24 14:39 | XRR_ITS ---
PROCEDURE INFORMATION: Exam: XR Chest Exam date and time: 04/24/2023 3:01 PM Age: 52 years old Clinical indication: Pain; Chest pressure; Additional info: Cp TECHNIQUE: Imaging protocol: Radiologic exam of the chest. Views: 1 view. COMPARISON: CR XR chest 1V portable [id number] 11/11/2022 12:47 AM FINDINGS: Lungs: Unremarkable. No consolidation. Pleural spaces: Unremarkable. No pleural effusion. No pneumothorax. Heart/Mediastinum: Unremarkable. No cardiomegaly. Bones/joints: Unremarkable. XR/XR chest 1V portable [id number] IMPRESSION: No acute findings.
[2023-04-24] MEDS: morphine 4 mg/mL SDV 1 mL IVP (14:46)
--- NOTE | 2023-04-24 14:53 | PC.NURSE ---
PATIENT HOOKED UP TO CONTINUOUS BEDSIDE CARDIAC MONITORING.
[2023-04-24] MEDS: sodium chloride 0.9% 1,000 ML 999 ML IV (15:32)
[2023-04-24 16:11] LABS: Basophils # 0.1 10^3/uL (0.0-0.1); Basophils % 0.5 %; Eosinophils # 0.2 10^3/uL (0.0-0.8); Eosinophils % 1.7 %; Hematocrit 33.6 % (37.0-47.0); Lymphocytes # 3.9 10^3/uL (0.8-4.8); Lymphocytes % 33.9 %; Mean Corpuscular HGB Conc 35.7 g/dL (30.0-36.0); Mean Corpuscular Hemoglobin 30.8 pg (28.0-34.0); Mean Corpuscular Volume 86.4 fl (81-99); Mean Platelet Volume 10.5 fL (7.4-10.4); Monocytes # 0.6 10^3/uL (0.2-0.9); Monocytes % 5.3 %; Neutrophils # 6.45 10^3/uL (1.8-7.7); Neutrophils % 56.5 %; Nucleated Red Blood Cells % 0 %; Platelet Count 393 10^3/cmm (130-400); Red Blood Count 3.89 10^6/uL (4.1-5.3); Red Cell Distribution Width 14.1 % (12.1-15.1); White Blood Count 11.4 10^3/uL (4.0-10.0)
[2023-04-24 16:28] LABS: Troponin(5th) Baseline 10 ng/L (0-10)
[2023-04-24 16:31] LABS: D Dimer 0.34 ug/mIFEU (0-0.59)
[2023-04-24 16:48] LABS: Alanine Aminotransferase 54 U/L (0-33); Alkaline Phosphatase 157 U/L (35-105); Aspartate Amino Transferase 43 U/L (0-32); Blood Urea Nitrogen 18 mg/dL (6-20); Calcium 8.5 mg/dL (8.5-10.5); Carbon Dioxide 18 mmol/L (22-29); Chloride 106 mmol/L (98-107); Globulin 2.8 g/dL (1.3-4.6); Glomerular Filtration Rate 57.8 mL/min (90-130); Glucose 225 mg/dL (65-115); Lipase 49 U/L (13-60); NT Pro B Type Natriuretic Pept 83 pg/mL (0-125); Osmolality Calculated 297 mOsm/kg (285-295); Sodium 139 mmol/L (136-145); Total Bilirubin 0.3 mg/dL (0.15-1.2); Total Protein 6.8 g/dL (6.6-8.7)
--- NOTE | 2023-04-24 17:08 | ECG_ITS ---
[facility] Test Date: 2023-04-24 Pat Name: Vaishali Jean Department: Room: Gender: Female Grey Tender: : 1970 Requested By: Taras Melgar Order Number: [id number] Mary Lou MD: Kath Colon M.D. Measurements Intervals [place] Rate: 103 P: 71 AL: 169 QRS: 48 QRSD: 87 T: 68 QT: 340 QTc: 447 Interpretive Statements SINUS TACHYCARDIA ABNORMAL RHYTHM ECG Compared to ECG 04/24/2023 14:30:24 T-wave abnormality no longer present Electronically Signed On 04-25-2023 11:27:19 CDT by Kath Colon M.D. [id number]
[2023-04-24 17:26] LABS: Add Urine Microscopic? NO; Charge for UA Resulting for Rev
[2023-04-24 17:28] LABS: Bilirubin Urine Neg (Negative); Blood Urine Neg (Negative); Glucose Urine UA Norm (Normal); Ketones Urine Negative (Negative); Leukocyte Esterase Urine Negative (Negative); Nitrate Urine Negative (Negative); Protein Urine Neg (Negative); Urine Appearance Clear (CLEAR); Urine Color Straw (Yellow); Urobilinogen Urine Norm (Negative); pH Urine 5 (5-7)
[2023-04-24] MEDS: aluminum-mag hydrox-simethicon 30 ML, sucralfate oral liq 1 GM PO (17:37)
[2023-04-24] MEDS: nitroglycerin 0.4 mg sublingual Tablet SUBLINGUAL (17:37)
[2023-04-24] MEDS: labetalol 5 mg/mL SDV 20mL 10 MG IVP (18:22)
[2023-04-24 18:26] LABS: Troponin 5 2HR 10.85 ng/L (0-10)
[2023-04-24 18:34] LABS: Troponin 5 2HR Delta 0.85 ABS# (0-10)
[2023-04-24] MEDS: HYDROmorphone 1 mg/mL INJ 1 mL IVP (18:49)
== END 2023-04-24 19:10 | disposition home or self-care (01) ==
PROVIDERS: Emergency Medicine; Emergency Provider Emergency Medicine; PCP Family Medicine
DX: R07.9 Chest pain, unspecified (principal); I10 Essential (primary) hypertension; E11.9 Type 2 diabetes mellitus without complications
CPT/HCPCS: 36415; 71045; 80053; 81003; 83690; 83880; 84484; 85025; 85378; 93005; 96361; 96374; 96375; 99285; J1170; J2270; J3490; J7030

== ENCOUNTER 2023-04-26 21:05 | Emergency (ER) | payer BC, SELFPAY ==
[2023-04-26 21:31] VITALS: BP 177/95; PULSE 108; RESP 16; TEMP 36.8; O2SAT 97; BMI 35.6
--- NOTE | 2023-04-26 22:35 | CTR_ITS ---
PROCEDURE INFORMATION: Exam: CT Abdomen And Pelvis With Contrast Exam date and time: 04/26/2023 10:49 PM Age: 52 years old Clinical indication: Abdominal pain; Generalized; Additional info: Abd pain TECHNIQUE: Imaging protocol: Computed tomography of the abdomen and pelvis with contrast. Radiation optimization: All CT scans at this facility use at least one of these dose optimization techniques: automated exposure control; mA and/or kV adjustment per patient size (includes targeted exams where dose is matched to clinical indication); or iterative reconstruction. Contrast material: OMNI 350; Contrast volume: 100 ml; Contrast route: INTRAVENOUS (IV); REPORTING DATA: Count of CT and Cardiac NM exams in prior 12 months: This patient has received [address] and 0 known cardiac nuclear medicine studies in the 12 months prior to the current study. COMPARISON: CT abdomen pelvis w con* [id number] 12/02/2017 10:14 AM RADIATION DOSE METRICS: Total DLP (mGy-cm): 837.27 FINDINGS: Liver: Hepatic steatosis. Gallbladder and bile ducts: Cholecystectomy. Pancreas: Normal. No ductal dilation. Spleen: Normal. No splenomegaly. Adrenal glands: Normal. No mass. Kidneys and ureters: Right kidney nonobstructing calyceal stone. Stomach and bowel: Unremarkable. No obstruction. No mucosal thickening. Appendix: No evidence of appendicitis. Intraperitoneal space: Unremarkable. No free air. No significant fluid collection. Vasculature: Unremarkable. No abdominal aortic aneurysm. Lymph nodes: Unremarkable. No enlarged lymph nodes. Urinary bladder: Mild urinary bladder wall thickening, please correlate for cystitis. Reproductive: Unremarkable as visualized. Bones/joints: Unremarkable. No acute fracture. Soft tissues: Moderate umbilical hernia containing omentum without bowel. CT/CT abdomen pelvis w con* [id number] IMPRESSION: 1. Mild urinary bladder wall thickening, please correlate for cystitis. 2. Hepatic steatosis. 3. Cholecystectomy. 4. Moderate umbilical hernia containing omentum without bowel. 5. Right kidney nonobstructing calyceal stone.
--- NOTE | 2023-04-26 22:35 | CTR_ITS ---
PROCEDURE INFORMATION: Exam: CT Head Without Contrast Exam date and time: 04/26/2023 10:47 PM Age: 52 years old Clinical indication: Injury or trauma; Fall; Blunt trauma (contusions or hematomas); Consciousness not specified TECHNIQUE: Imaging protocol: Computed tomography of the head without contrast. Radiation optimization: All CT scans at this facility use at least one of these dose optimization techniques: automated exposure control; mA and/or kV adjustment per patient size (includes targeted exams where dose is matched to clinical indication); or iterative reconstruction. REPORTING DATA: Count of CT and Cardiac NM exams in prior 12 months: This patient has received [address] and 0 known cardiac nuclear medicine studies in the 12 months prior to the current study. COMPARISON: CT head wo con* [id number] 11/11/2022 1:00 AM RADIATION DOSE METRICS: Total DLP (mGy-cm): 1213.34 FINDINGS: Brain: No hemorrhage. No edema, mass effect or midline shift. Cerebral ventricles: No ventriculomegaly. Paranasal sinuses: Visualized sinuses are unremarkable. No fluid levels. Mastoid air cells: No mastoid effusion. Bones/joints: No acute fracture. Soft tissues: Unremarkable. CT/CT head wo con* [id number] IMPRESSION: No acute intracranial abnormality.
[2023-04-26] MEDS: HYDROmorphone 1 mg/mL INJ 1 mL IVP (22:39)
[2023-04-26] MEDS: iohexol 350 mg/mL 500 mL Btl (per mL) IV (22:47)
[2023-04-26 22:49] LABS: Add Urine Microscopic? YES; Bilirubin Urine Neg (Negative); Blood Urine 2+ (Negative); Glucose Urine UA 1+ (Normal); Ketones Urine Negative (Negative); Leukocyte Esterase Urine 2+ (Negative); Nitrate Urine Negative (Negative); Protein Urine 1+ (Negative); Urine Appearance Hazy (CLEAR); Urine Color Yellow (Yellow); Urobilinogen Urine Neg (Negative); pH Urine 5 (5-7)
[2023-04-26 22:50] LABS: Add Urine Culture? No; Amorphous Sediment Urine 2+ /hpf; Bacteria Urine 2+ /hpf; Mucus Urine 2+ /hpf; RBC Urine 15-25 /hpf (0-2); Squamous Epithelial Cell Urine 15-25 /hpf (0-5); WBC Urine 25-40 /hpf (0-5)
[2023-04-26 22:50] LABS: Basophils # 0.1 10^3/uL (0.0-0.1); Basophils % 0.6 %; Eosinophils # 0.2 10^3/uL (0.0-0.8); Eosinophils % 1.9 %; Hematocrit 39.1 % (37.0-47.0); Hemoglobin 13.7 g/dL (11.5-15.3); Lymphocytes # 4.7 10^3/uL (0.8-4.8); Lymphocytes % 38.2 %; Mean Corpuscular Hemoglobin 31.1 pg (28.0-34.0); Mean Corpuscular Volume 88.7 fl (81-99); Mean Platelet Volume 9.9 fL (7.4-10.4); Monocytes # 0.7 10^3/uL (0.2-0.9); Monocytes % 5.7 %; Neutrophils # 6.49 10^3/uL (1.8-7.7); Neutrophils % 52.6 %; Nucleated Red Blood Cells % 0 %; Platelet Count 371 10^3/cmm (130-400); Red Blood Count 4.41 10^6/uL (4.1-5.3); Red Cell Distribution Width 14.3 % (12.1-15.1); White Blood Count 12.4 10^3/uL (4.0-10.0)
--- NOTE | 2023-04-26 22:51 | ED_ITS ---
HPI - Abdominal Pain General: Chief Complaint: Abdominal Pain Stated Complaint: abd pain Time Seen by Provider: 04/26/23 22:22 Source: patient Mode of arrival: ambulatory Limitations: no limitations History of Present Illness: 52-year-old female who states she been having right lower quadrant abdominal pain throughout the day. States that sharp in nature radiates into her right flank she rates her pain an 8 out of 10. States she is also been having some chest pain she had chest pain for quite some time she also fell and hit her head today and has a headache. Denies any vomiting denies any fever denies any worsening proving factors Associated Symptoms: Denies chills, diarrhea, dysuria, fever(s), nausea and vomiting Review of Systems Const: Denies: fever(s) or chills ENMT: Denies: throat pain or dental pain Card: Reports: chest pain Resp: Denies: dyspnea GI: Reports: abdominal pain; Denies: nausea, vomiting or diarrhea : Denies: dysuria Musc: Denies: neck pain or back pain Skin/Breast: Denies: rash Neuro: Reports: headache(s) PFSH ED PFSH: Medical History Allergic rhinitis Benign essential HTN side effects with HCTZ and amlodipine, pt does not remember what they were. Gastroparesis GERD (gastroesophageal reflux disease) Hepatosplenomegaly Hypokalemia Hyponatremia Lesion of lung Liver fibrosis MARTIN (nonalcoholic steatohepatitis) Psychiatric care Situational anxiety Sleep apnea Type 2 diabetes mellitus, without long-term current use of insulin metformin intolerance. Surgical History History of cholecystectomy Hx of bilateral salpingectomy Hx of section Hx of dilation and curettage Hx of hysterectomy Hx of tonsillectomy Hx of tubal ligation Family History Unknown No problems noted. Father Cardiac arrest Renal failure Diabetes Mother Stroke Grandmother Stroke Diabetes Hypertension Unknown No problems noted. Family/Other Diabetes Myocardial infarction Other Cancer Family history of thyroid problem Social History Smoking and tobacco status: never smoked Alcohol intake: never Substance/Drug Use: never Physical Exam Const: COMMON NORMALS: no acute distress, patient oriented x3 and healthy appearing HENMT: COMMON NORMALS: normocephalic; head/scalp not atraumatic (Contusion to right forehead) HEAD & SCALP: normocephalic; not atraumatic (Contusion to right forehead) Neck/C-Spine: COMMON NORMALS: full ROM and supple Chest: COMMONS NORMALS: normal inspection of the chest and normal palpation of entire chest wall Resp: COMMON NORMALS: normal respiratory effort, No retractions, No use of accessory muscles and clear to auscultation bilaterally AUSCULTATION: clear to auscultation bilaterally Cardio: COMMON NORMALS: regular rate, regular rhythm and No murmurs present (Cardio) RATE: regular rate RHYTHM: regular rhythm GI: COMMON NORMALS: Normal to inspection, nondistended, normoactive bowel sounds present, Soft to palpation, non-tender and no masses PALPATION: Yes Soft to palpation Extremity: COMMON NORMALS: normal to inspection and full ROM Neuro: COMMON NORMALS: patient oriented x3, moves all extremities and no focal motor deficits Psych: COMMON NORMALS: mental status grossly normal, Normal thought process present and cooperative THOUGHT PROCESS: Normal thought process present Skin: COMMON NORMALS: no rashes or lesions noted and no wounds GENERAL SKIN EXAM: no rashes or lesions noted Course Vital Signs: Vital signs: Vital Signs Temperature 98.2 F 04/26/23 21:31 Pulse Rate 108 H 04/27/23 01:03 Respiratory Rate 16 04/27/23 01:03 Blood Pressure 159/110 04/27/23 01:35 Pulse Oximetry 98 04/27/23 01:03 Oxygen Delivery Me thod Room Air 04/26/23 21:31 MDM - Abdominal Pain Medical Decision Making Patient presents here with abdominal pain she also had chest pain and a recent head injury all her imaging here is normal. She does have a slight cystitis we will start her on Keflex along with hydrocodone for pain she is to follow-up with PCP and return if worsening Medical Records I reviewed the patient's medical records. Lab Data I reviewed the patient's lab results. 04/26/23 22:26 04/26/23 22:26 Labs/Radiology: Radiology Impressions Abdomen/Pelvis CT 04/26/23 22:35 IMPRESSION: 1. Mild urinary bladder wall thickening, please correlate for cystitis. 2. Hepatic steatosis. 3. Cholecystectomy. 4. Moderate umbilical hernia containing omentum without bowel. 5. Right kidney nonobstructing calyceal stone. Head CT 04/26/23 22:35 IMPRESSION: No acute intracranial abnormality. Laboratory Results WBC 12.4 10^3/uL (4.0-10.0) H 04/26/23 22: RBC 4.41 10^6/uL (4.1-5.3) 04/26/23 22: Hgb 13.7 g/dL (11.5-15.3) 04/26/23 22: Hct 39.1 % (37.0-47.0) 04/26/23 22: MCV 88.7 fl (81-99) 04/26/23 22: MCH 31.1 pg (28.0-34.0) 04/26/23 22: MCHC 35.0 g/dL (30.0-36.0) 04/26/23 22: RDW 14.3 % (12.1-15.1) 04/26/23 22: Plt Count 371 10^3/cmm (130-400) 04/26/23 22: MPV 9.9 fL (7.4-10.4) 04/26/23 22: Neut % (Auto) 52.6 % 04/26/23 22: Lymph % (Auto) 38.2 % 04/26/23 22: [place] % (Auto) 5.7 % 04/26/23 22: Eos % (Auto) 1.9 % 04/26/23: Baso % (Auto) 0.6 % 04/26/23 22: Neut # (Auto) 6.49 10^3/uL (1.8-7.7) 04/26/23 22: Lymph # (Auto) 4.7 10^3/uL (0.8-4.8) 04/26/23: [place] # (Auto) 0.7 10^3/uL (0.2-0.9) 04/26/23 22: Eos # (Auto) 0.2 10^3/uL (0.0-0.8) 04/26/23 22: Baso # (Auto) 0.1 10^3/uL (0.0-0.1) 04/26/23 22:26 Nucleated RBC % (auto) 0 % 04/26/23 22:26 Nucleated RBCs # 0.0 /100WBC 04/26/23 22:26 Sodium 139 mmol/L (136-145) 04/26/23 22:26 Potassium 3.8 mmol/L (3.5-5.1) 04/26/23 22:26 Chloride 100 mmol/L (98-107) 04/26/23 22:26 Carbon Dioxide 23 mmol/L (22-29) 04/26/23 22:26 Anion Gap 19.8 (5-19) H 04/26/23 22:26 BUN 18 mg/dL (6-20) 04/26/23 22:26 Creatinine 1.1 mg/dL (0.5-0.9) H 04/26/23 22:26 GFR Calculation 51.8 mL/min (90-130) L 04/26/23 22:26 Glucose 269 mg/dL (65-115) H 04/26/23 22:26 Calculated Osmolality 299 mOsm/kg (285-295) H 04/26/23 22:26 Calcium 9.5 mg/dL (8.5-10.5) 04/26/23 22:26 Total Bilirubin 0.3 mg/dL (0.15-1.2) 04/26/23 22:26 AST 34 U/L (0-32) H 04/26/23 22:26 ALT 50 U/L (0-33) H 04/26/23 22:26 Alkaline Phosphatase 166 U/L (35-105) H 04/26/23 22:26 Troponin T Baseline 12 ng/L (0-10) H 04/26/23 22:26 Troponin T 120 Minute 16.01 ng/L (0-10) H 04/27/23 00:53 Delta Troponin T 4.01 ABS# (0-10) 04/27/23 00:53 Total Protein 8.1 g/dL (6.6-8.7) 04/26/23 22:26 Albumin 4.5 g/dL (3.5-5.2) 04/26/23 22:26 Globulin 3.6 g/dL (1.3-4.6) 04/26/23 22:26 Lipase 57 U/L (13-60) 04/26/23 22:26 HCG, Qual Negative (Negative) 04/26/23 22:26 Urine Color Yellow (Yellow) 04/26/23 22:38 Urine Appearance Hazy (CLEAR) A 04/26/23 22:38 Urine pH 5 (5-7) 04/26/23 22:38 Ur Specific [place] 1.020 (1.005-1.030) 04/26/23 22:38 Urine Protein 1+ (Negative) H 04/26/23 22:38 Urine Glucose (UA) 1+ (Normal) H 04/26/23 22:38 Urine Ketones Negative (Negative) 04/26/23 22:38 Urine Blood 2+ (Negative) H 04/26/23 22:38 Urine Nitrate Negative (Negative) 04/26/23 22:38 Urine Bilirubin Neg (Negative) 04/26/23 22:38 Urine Urobilinogen Neg mg/dL (Negative) 04/26/23 22:38 Ur Leukocyte Esterase 2+ (Negative) H 04/26/23 22:38 Urine RBC 15-25 /hpf (0-2) H 04/26/23 22:38 Urine WBC 25-40 /hpf (0-5) H 04/26/23 22:38 Ur Squamous Epith Cells 15-25 /hpf (0-5) H 04/26/23 22:38 Amorphous Sediment 2+ /hpf 04/26/23 22:38 Urine Bacteria 2+ /hpf (NONE) H 04/26/23 22:38 Urine Mucus 2+ /hpf 04/26/23 22:38 EKG Data EKG 1: I personally reviewed and interpreted this EKG as follows: EKG interpretation date: 04/26/23 EKG interpretation time: 23:01 Interpretation: nsr hr [address] or t wave abnormalities qrs 94 qtc 425 Discharge Plan Discharge Patient Disposition: Home Clinical Impression: Abdominal pain, Chest pain, Benign essential HTN, UTI (urinary tract infection) Condition: Stable Prescriptions: New hydrocodone-acetaminophen 5-325 mg tablet 1 tab PO Q6H PRN (Reason: pain) Qty: 14 0RF cephalexin 500 mg capsule 500 mg PO TID 7 Days Qty: 21 0RF ondansetron 4 mg tablet,disintegrating 4 mg PO Q6H PRN (Reason: nausea and vomiting) Qty: 14 0RF No Action tizanidine 4 mg tablet 4 mg PO TID PRN (Reason: muscle spasticity) 30 Days Qty: 90 2RF losartan 100 mg tablet 100 mg PO DAILY 30 Days Qty: 30 2RF hydrochlorothiazide 25 mg tablet 25 mg PO QAM 30 Days Qty: 30 2RF nervive 1 tab PO QAM fluticasone propionate 50 mcg/actuation spray,suspension 2 spray INTRANASAL DAILY Qty: 16 0RF Rx Instructions: administer into each nostril (DME) OneTouch Ultra Test Strip See Rx Instructions .ROUTE .COMPLEX Qty: 100 5RF Dose Instruction: USE DIRECTED Rx Instructions: USE DIRECTED acetaminophen [Tylenol Extra Strength] 500 mg Tablet 1,000 mg PO BID diphenhydramine HCl [Benadryl] 25 mg Capsule 25 mg PO BID echinacea 500 mg Capsule 500 mg PO BID Rx Instructions: administer with meals pantoprazole 40 mg tablet,delayed release (DR/EC) 40 mg PO BID dulaglutide 1.5 mg/0.5 mL pen injector 1.5 mg SUBCUT Q7D Rx Instructions: on wednesday Anna-Garlic Juice-Apple Cide See Rx Instructions .ROUTE .COMPLEX Rx Instructions: one capful with 2 oz of water and drink as needed for leg cramps carvedilol 6.25 mg tablet See Rx Instructions .ROUTE .COMPLEX Rx Instructions: 1 tab in AM and 0.5 tab in PM Discharge Orders: Discharge ED (Routine); Ordered 04/27/23 Ordered By: Kendall Godfrey Referrals: Susy Winn MD [Primary Care Provider] - 1-3 days Discharge Activity: Resume usual activity Patient Instructions: Abdominal Pain (ED) Coding Level of Care Code ED Announcer for Michoacano De Oliveira
[2023-04-26 22:55] LABS: Alanine Aminotransferase 50 U/L (0-33); Albumin Level 4.5 g/dL (3.5-5.2); Alkaline Phosphatase 166 U/L (35-105); Anion Gap 19.8 (5-19); Aspartate Amino Transferase 34 U/L (0-32); Blood Urea Nitrogen 18 mg/dL (6-20); Calcium 9.5 mg/dL (8.5-10.5); Carbon Dioxide 23 mmol/L (22-29); Chloride 100 mmol/L (98-107); Globulin 3.6 g/dL (1.3-4.6); Glomerular Filtration Rate 51.8 mL/min (90-130); Glucose 269 mg/dL (65-115); Lipase 57 U/L (13-60); Osmolality Calculated 299 mOsm/kg (285-295); Potassium 3.8 mmol/L (3.5-5.1); Sodium 139 mmol/L (136-145); Total Bilirubin 0.3 mg/dL (0.15-1.2); Total Protein 8.1 g/dL (6.6-8.7)
--- NOTE | 2023-04-26 23:01 | ECG_ITS ---
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 Measurements Intervals [place] Rate: 90 P: 62 GA: 163 QRS: 11 QRSD: 94 T: 52 QT: 377 QTc: 463 Interpretive Statements SINUS RHYTHM Compared to ECG 04/24/2023 17:08:22 Sinus tachycardia no longer present Electronically Signed On 04-27-2023 17:36:02 CDT by Roshan Torres M.D. [id number]
[2023-04-26] MEDS: cefTRIAXone 1,000 MG in sodium chloride 0.9% (plus) 50 ML 100 MG IV (23:13)
[2023-04-26] MEDS: labetalol 5 mg/mL SDV 20mL 10 MG IVP (23:14)
[2023-04-26 23:15] VITALS: BP 182/109; PULSE 88; RESP 16; O2SAT 100
[2023-04-26 23:24] LABS: HCG, Serum Qual Negative (Negative)
[2023-04-26 23:26] LABS: Troponin(5th) Baseline 12 ng/L (0-10)
[2023-04-27] MEDS: hyDRALAzine 20 mg/mL INJ 1 mL 10 MG IVP (00:15)
[2023-04-27 00:29] VITALS: BP 187/101; PULSE 103; RESP 16; O2SAT 100
--- NOTE | 2023-04-27 00:53 | ECG_ITS ---
[facility] Test Date: 2023-04-27 Pat Name: Vaishali Jean Department: Room: Gender: Female Gm Mobile: : 1970 Requested By: Kendall Godfrey Order Number: [id number] Mary Lou MD: Roshan Torres M.D. Measurements Intervals [place] Rate: 103 P: 95 IA: 147 QRS: 56 QRSD: 89 T: 60 QT: 354 QTc: 464 Interpretive Statements SINUS TACHYCARDIA NONSPECIFIC T-WAVE ABNORMALITY Compared to ECG 04/26/2023 23:01:17 T-wave abnormality now present Sinus rhythm no longer present Electronically Signed On 04-27-2023 17:42:37 CDT by Roshan Torres M.D. [id number]
[2023-04-27 01:03] VITALS: PULSE 108; RESP 16; O2SAT 98
[2023-04-27 01:21] LABS: Troponin 5 2HR 16.01 ng/L (0-10)
[2023-04-27 01:23] LABS: Troponin 5 2HR Delta 4.01 ABS# (0-10)
[2023-04-27 01:35] VITALS: BP 159/110
[2023-04-27 02:17] VITALS: BP 159/110; PULSE 108; RESP 16; TEMP 36.8; O2SAT 98
== END 2023-04-27 02:24 | disposition home or self-care (01) ==
PROVIDERS: Emergency Provider Emergency Medicine; PCP Family Medicine
DX: N39.0 Urinary tract infection, site not specified (principal); R07.9 Chest pain, unspecified; I10 Essential (primary) hypertension; E11.9 Type 2 diabetes mellitus without complications
CPT/HCPCS: 36415; 70450; 74177; 80053; 81001; 83690; 84484; 84703; 85025; 93005; 96365; 96375; 99285; J0360; J0696; J1170; J3490; Q9967

== ENCOUNTER → 2023-05-13 10:34 | Outpatient (BNVA) | payer BC, SELFPAY | PROVIDERS: PCP Family Medicine; Referring Provider Family Medicine; Visit Provider Family Medicine | DX: R30.0 Dysuria (principal); N39.0 Urinary tract infection, site not specified | CPT/HCPCS: 81000; 87086 ==

== ENCOUNTER 2023-06-21 06:37 | Day surgery (SDC) | payer BC, SELFPAY ==
[2023-06-18 10:38] VITALS: BMI 35.5
[2023-06-21] VITALS (13 sets, daily range): BP systolic 134–156; BP diastolic 82–103; PULSE 68–83; RESP 15–20; TEMP 36.4–36.7; O2SAT 97–100
--- NOTE | 2023-06-21 07:04 | P.HP_ITS ---
Providers/Chief Complaint Primary Care Provider: Susy Winn MD Chief Complaint: K42.9 History of Present Illness Vaishali Jean is a 52 year old female Review of Systems General: Reports: 10 or more systems reviewed and unremarkable except in HPI and below Medications/Allergies Home Medications Medication Instructions Recorded Confirmed Last Taken Type acetaminophen 500 mg tablet 1,000 mg PO BID 05/21/20 06/21/23 06/20/23 History (Tylenol Extra Strength) blood sugar diagnostic (OneTouch #100 ea 09/26/22 05/18/23 Unknown Rx Ultra Test strips) hydrochlorothiazide 25 mg tablet 25 mg PO QAM 30 days #30 tabs 02/24/23 06/21/23 06/21/23 Rx t 0430 losartan 100 mg tablet 100 mg PO DAILY 30 days #30 tabs 02/24/23 06/21/23 06/20/23 Rx Anna-Garlic Juice-Apple Cide See Rx Instructions .Route .COMPLEX 03/31/23 06/18/23 04/24/23 History diphenhydramine HCl 25 mg capsule 25 mg PO BID PRN Itching 03/31/23 06/21/23 06/20/23 History (Benadryl) dulaglutide 1.5 mg/0.5 mL 1.5 mg SUBCUT Q7D 03/31/23 06/21/23 06/20/23 History subcutaneous pen injector echinacea 500 mg capsule 500 mg PO BID 03/31/23 06/21/23 06/20/23 History miscellaneous medical supply See Rx Instructions miscellaneous 05/04/23 06/18/23 Unknown Rx .COMPLEX #1 ea pantoprazole 40 mg tablet,delayed 40 mg PO BID 90 days #180 tabs 05/04/23 06/21/23 06/20/23 Rx release carvedilol 12.5 mg tablet 12.5 mg PO DIRECTED #270 tabs 06/11/23 06/21/23 06/21/23 04:30 Rx tizanidine 4 mg tablet 4 mg PO TID PRN muscle spasticity 06/11/23 06/21/23 06/20/23 Rx 30 days #90 tabs fluticasone propionate 50 2 spray intranasal DAILY PRN Sinus 06/18/23 06/21/23 0 06/20/23 History mcg/actuation nasal Symptoms spray,suspension Allergies Allergy/AdvReac Type Severity Reaction Status Date / Time milk Allergy Mild ADR-Gastrointestinal Verified 06/21/23 06:51 Upset lanolin Allergy unverified Verified 06/21/23 06:51 metformin AdvReac Mild elevated Verified 06/21/23 06:51 liver enzymes PFSH Acute PFSH: Medical History (Updated 05/18/23 @ 14:26 by Reginaldo aSntos DO) Allergic rhinitis Benign essential HTN side effects with HCTZ and amlodipine, pt does not remember what they were. Gastroparesis GERD (gastroesophageal reflux disease) Hepatosplenomegaly Hypokalemia Hyponatremia Lesion of lung Liver fibrosis MARTIN (nonalcoholic steatohepatitis) Psychiatric care Situational anxiety Sleep apnea Type 2 diabetes mellitus, without long-term current use of insulin metformin intolerance. Surgical History (Updated 05/18/23 @ 14:26 by Reginaldo Santos DO) History of cholecystectomy History of esophagogastroduodenoscopy (EGD) 2016 x2 Hx of bilateral salpingectomy Hx of section Hx of dilation and curettage Hx of hysterectomy Hx of tonsillectomy Hx of tubal ligation Family History Unknown No problems noted. Father Cardiac arrest Renal failure Diabetes Mother Stroke Grandmother Stroke Diabetes Hypertension Unknown No problems noted. Family/Other Diabetes Myocardial infarction Other Cancer Family history of thyroid problem Social History Smoking and tobacco status: never smoked Alcohol intake: never Substance/Drug Use: never Vitals/I&O/Wt Last Vital Signs Temp 97.6 F 06/21/23 06:55 Pulse 82 06/21/23 06:55 Resp 17 06/21/23 06:55 BP 156/100 06/21/23 06:55 Pulse Ox 99 06/21/23 06:55 O2 Del Method Room Air 06/21/23 06:55 A&P Assessment and plan (1) Umbilical hernia: Plan Laparoscopic repair of umbilical hernia with mesh Attestations Medical Necessity Statement*: HOME Coding Level of Care Code Acute Code for Chg Fwd Diagnoses Umbilical hernia K42.9
[2023-06-21] MEDS: sodium chloride 0.9% 1,000 ML 30 ML IV (07:08)
[2023-06-21] MEDS: ceFAZolin 2,000 MG in sodium chloride 0.9% (plus) 50 ML 100 MG IV (08:06)
[2023-06-21] MEDS: lidocaine-epi 2% 20 mL INJ INJECTION (08:32)
[2023-06-21 08:38] LABS: Glucose Point of Care 262 mg/dL (70-110)
--- NOTE | 2023-06-21 08:59 | PM.OP ---
Operative Report Date of procedure: June 21, 2023 Pre-op diagnosis: Umbilical hernia Post-op diagnosis: same Procedure done: Laparoscopic repair of umbilical hernia with mesh Implants: 6 inch round Ventralight mesh Specimens removed/disposition: Hernia sac Surgeon: Reginaldo Santos DO Anesthesia: General Estimated blood loss (mL): 5 Complications: None apparent Brief History: This very pleasant 52-year-old female presented my office with an umbilical hernia that was reducible. It measures about 6 cm in diameter preoperatively. Laparoscopic repair with mesh was indicated. The risk and benefits were explained and documented. Procedure: Patient was wheeled into the operative room and placed on the OR table in a supine position. Abdomen was inspected prepped and draped in usual sterile fashion. Time-out was performed and all present were in agreement. A 15 blade scalp was used to make a 5 millimeter incision left upper quadrant. A Veress needle was placed into the incision and intra-abdominal insufflation was brought to 15 millimeters of mercury. A 12 millimeter trocar was placed into the left lower quadrant. An umbilical hernia containing some omental fat was identified. The Enseal was used to take down the omental fat. The hernia defect measured approximately 6 cm in diameter. The energy but device was then used to cut out the hernia sac. A 6 inch ventral light mesh was placed into the abdomen and brought up through the umbilicus using an the Ap-Chance. The mesh was then tacked in place in a double crown fashion. The skeleton of the mesh was removed via the left lower quadrant. The hernia sac was then removed from the abdomen via the left lower quadrant. The left lower quadrant port site was closed with an 0 Vicryl suture in a Ap-Chance in a dtpsel-sc-razee fashion. Incisions were closed with 4 O Vicryl in a subcuticular interrupted fashion. Skin glue was applied. A dressing that included cotton balls and a Tegaderm was placed over the umbilicus. Patient tolerated the procedure well.
[2023-06-21] MEDS: fentaNYL 50 mcg/mL INJ 2mL IVP (09:15)
[2023-06-21] MEDS: oxyCODONE-APAP 5-325 mg Tablet 1 TAB PO (10:02)
--- NOTE | 2023-06-21 17:14 | ANE.PACU2 ---
Inpatient post-anesthesia follow up: Airway intact: Yes Vital signs: Temperature 98 F Pulse Rate 83 Respiratory Rate 15 Blood Pressure 141/90 Pulse Oximetry 100 Oxygen Delivery Me thod Room Air Oxygen Flow Rate 6 Fraction of Inspir ed Oxygen Hydration adequate: Yes Nausea and vomiting: No Pain level: 3 Mental status: Baseline
== END 2023-06-21 10:20 | disposition home or self-care (01) ==
PROVIDERS: PCP Family Medicine; Visit Provider Surgery
PROC: 0WQF4ZZ Repair Abdominal Wall, Percutaneous Endoscopic Approach (ICD-10-PCS; CPT 49593; principal; 2023-06-21 08:20)
DX: K42.9 Umbilical hernia without obstruction or gangrene (principal); I10 Essential (primary) hypertension; K21.9 Gastro-esophageal reflux disease without esophagitis; E11.9 Type 2 diabetes mellitus without complications
CPT/HCPCS: 49593; 36416; 82962; 88302; J0690; J1100; J2405; J2710; J3010; J3490; J7030

== ENCOUNTER → 2023-07-06 08:55 | Outpatient (BNVA) | payer BC, SELFPAY | PROVIDERS: PCP Family Medicine; Visit Provider Family Medicine | DX: E11.9 Type 2 diabetes mellitus without complications (principal); I10 Essential (primary) hypertension; Z98.890 Other specified postprocedural states; Z87.19 Personal history of other diseases of the digestive system; K21.9 Gastro-esophageal reflux disease without esophagitis | CPT/HCPCS: 80053; 83036 ==

== ENCOUNTER 2023-07-07 08:39 | Day surgery (SDC) | payer BC, SELFPAY ==
[2023-07-05 14:02] VITALS: BMI 34.9
[2023-07-07 09:02] VITALS: BP 164/101; PULSE 104; RESP 20; TEMP 36.1; O2SAT 97; BMI 34.9
[2023-07-07] MEDS: sodium chloride 0.9% 1,000 ML 30 ML IV (09:25)
[2023-07-07 09:57] LABS: Glucose Point of Care 283 mg/dL (70-110)
--- NOTE | 2023-07-07 10:15 | P.HP_ITS ---
Providers/Chief Complaint Primary Care Provider: Suys Winn MD Chief Complaint: K21.9, R13.10 History of Present Illness Vaishali Jean is a 52 year old female Review of Systems 2 General: Reports: 10 or more systems reviewed and unremarkable except in HPI and below Medications/Allergies Home Medications Medication Instructions Recorded Confirmed Last Taken Type acetaminophen 500 mg tablet 1,000 mg PO BID 05/21/20 07/07/23 07/06/23 History (Tylenol Extra Strength) blood sugar diagnostic (OneTouch #100 ea 09/26/22 07/06/23 Unknown Rx Ultra Test strips) hydrochlorothiazide 25 mg tablet 25 mg PO QAM 30 days #30 tabs 02/24/23 07/07/23 07/07/23 Rx Anna-Garlic Juice-Apple Cide See Rx Instructions .Route .COMPLEX 03/31/23 07/06/23 04/24/23 History diphenhydramine HCl 25 mg capsule 25 mg PO BID PRN Itching 03/31/23 07/07/23 07/06/23 History (Benadryl) dulaglutide 1.5 mg/0.5 mL 1.5 mg SUBCUT Q7D 03/31/23 07/06/23 06/20/23 History subcutaneous pen injector echinacea 500 mg capsule 500 mg PO BID 03/31/23 07/07/23 07/06/23 History miscellaneous medical supply See Rx Instructions miscellaneous 05/04/23 07/06/23 Unknown Rx .COMPLEX #1 ea pantoprazole 40 mg tablet,delayed 40 mg PO BID 90 days #180 tabs 05/04/23 07/07/23 07/06/23 Rx release carvedilol 12.5 mg tablet 12.5 mg PO DIRECTED #270 tabs 06/11/23 07/07/23 07/07/23 Rx tizanidine 4 mg tablet 4 mg PO TID PRN muscle spasticity 06/11/23 07/07/23 07/06/23 Rx 30 days #90 tabs fluticasone propionate 50 2 spray intranasal DAILY PRN Sinus 06/18/23 07/07/23 07/06/23 History mcg/actuation nasal Symptoms spray,suspension docusate sodium 100 mg capsule 100 mg PO BID #14 caps 06/21/23 07/07/23 07/06/23 Rx (Colace) oxycodone-acetaminophen 5 mg-325 1 tab PO Q6H PRN pain #20 tabs 06/21/23 07/07/23 2 Weeks Ago Rx mg tablet ~06/23/23 losartan 100 mg tablet 100 mg PO DAILY 30 days #30 tabs 07/05/23 07/07/23 07/06/23 Rx Allergies Allergy/AdvReac Type Severity Reaction Status Date / Time milk Allergy Mild ADR-Gastrointestinal Verified 07/06/23 11:26 Upset lanolin Allergy unverified Verified 07/06/23 11:26 metformin AdvReac Mild elevated Verified 07/06/23 11:26 liver enzymes PFSH Acute PFSH: Medical History Allergic rhinitis Benign essential HTN side effects with HCTZ and amlodipine, pt does not remember what they were. Gastroparesis GERD (gastroesophageal reflux disease) Hepatosplenomegaly Hypokalemia Hyponatremia Lesion of lung Liver fibrosis MARTIN (nonalcoholic steatohepatitis) Psychiatric care Situational anxiety Sleep apnea Type 2 diabetes mellitus, without long-term current use of insulin metformin intolerance. Surgical History History of cholecystectomy History of esophagogastroduodenoscopy (EGD) 2017 x2 Hx of bilateral salpingectomy Hx of section Hx of dilation and curettage Hx of hysterectomy Hx of tonsillectomy Hx of tubal ligation Family History Unknown No problems noted. Father Cardiac arrest Renal failure Diabetes Mother Stroke Grandmother Stroke Diabetes Hypertension Unknown No problems noted. Family/Other Diabetes Myocardial infarction Other Cancer Family history of thyroid problem Social History Smoking and tobacco status: never smoked Alcohol intake: never Substance/Drug Use: never Vitals/I&O/Wt Last Vital Signs Temp 97.0 F L 07/07/23 09:02 Pulse 104 H 07/07/23 09:02 Resp 20 H 07/07/23 09:02 BP 164/101 07/07/23 09:02 Pulse Ox 97 07/07/23 09:02 O2 Del Method Room Air 07/07/23 09:02 Weight last 48 hrs Weight 191 lb Weight 191 lb 6.4 oz A&P Assessment and plan (1) Dysphagia: (2) GERD (gastroesophageal reflux disease): Qualifiers: Esophagitis presence: esophagitis presence not specified Qualified Code(s): K21.9 - Gastro-esophageal reflux disease without esophagitis (3) Colon cancer screening: Plan EGD with possible balloon dilation Screening colonoscopy Attestations Medical Necessity Statement*: home Coding Level of Care Code Acute Code for Chg Fwd Diagnoses Dysphagia R13.10 GERD (gastroesophageal reflux disease) K21.9 Esophagitis presence: esophagitis presence not specified Colon cancer screening Z12.11
--- NOTE | 2023-07-07 10:31 | ANES.PREANE2 ---
Pre-Anesthetic Assessment Height/Weight: Height 1.57 m Weight 86.636 kg Temp Pulse Resp BP Pulse Ox O2 Del Method 97.0 F L 104 H 20 H 164/101 97 Room Air 07/07/23 09:02 07/07/23 09:02 07/07/23 09:02 07/07/23 09:02 07/07/23 09:02 07/07/23 09:02 Preop Diagnosis: screening, GERD Operation Date: 07/07/23 10:30 Proposed Procedures p 30957 - EGD w/balloon Dial K21.9,R13.10(Not Applicable) - [place] [address],Z12.11(Not Applicable) - Reginaldo Santos DO Familial anesthetic complications: none Was Beta Milad taken within 24 hours: Yes Last intake: Intake Last Liquid Date 07/06/23 Last Liquid Time 23:30 Last Solid Date 07/05/23 Last Solid Time 22:30 Social No alcohol and No tobacco Exam alert, oriented x 3, clear to auscultation bilaterally and regular rate & rhythm Airway Submandibular: within normal limits Cervical ROM: within normal limits Mallampati: Class III Dentition: other (missing) Pulmonary Sleep Apnea (non-compliant) CV/HEM Arrythmia (tachycardia) and Hypertension None reported Hepatic MARTIN, fibrotic liver GI Gastroesophageal Reflux Disease dysphagia Metabolic Diabetes Mellitus and Morbid Obesity Musc/skel Osteoarthritis/DJD (back and hips) and Weakness (prn cane and walker use.) Neuropsych None reported Anesthetic Plan ASA status: 3 Anesthesia: MAC Medications/Allergies Home Medications Medication Instructions Recorded Confirmed Last Taken Type acetaminophen 500 mg tablet 1,000 mg PO BID 05/21/20 07/07/23 07/06/23 History (Tylenol Extra Strength) blood sugar diagnostic (OneTouch #100 ea 09/26/22 07/06/23 Unknown Rx Ultra Test strips) hydrochlorothiazide 25 mg tablet 25 mg PO QAM 30 days #30 tabs 02/24/23 07/07/23 07/07/23 Rx Anna-Garlic Juice-Apple Cide See Rx Instructions .Route .COMPLEX 03/31/23 07/06/23 04/24/23 History diphenhydramine HCl 25 mg capsule 25 mg PO BID PRN Itching 03/31/23 07/07/23 07/06/23 History (Benadryl) dulaglutide 1.5 mg/0.5 mL 1.5 mg SUBCUT Q7D 03/31/23 07/06/23 06/20/23 History subcutaneous pen injector echinacea 500 mg capsule 500 mg PO BID 03/31/23 07/07/23 07/06/23 History miscellaneous medical supply See Rx Instructions miscellaneous 05/04/23 07/06/23 Unknown Rx .COMPLEX #1 ea pantoprazole 40 mg tablet,delayed 40 mg PO BID 90 days #180 tabs 05/04/23 07/07/23 07/06/23 Rx release carvedilol 12.5 mg tablet 12.5 mg PO DIRECTED #270 tabs 06/11/23 07/07/23 07/07/23 Rx tizanidine 4 mg tablet 4 mg PO TID PRN muscle spasticity 06/11/23 07/07/23 07/06/23 Rx 30 days #90 tabs fluticasone propionate 50 2 spray intranasal DAILY PRN Sinus 06/18/23 07/07/23 07/06/23 History mcg/actuation nasal Symptoms spray,suspension docusate sodium 100 mg capsule 100 mg PO BID #14 caps 06/21/23 07/07/23 07/06/23 Rx (Colace) oxycodone-acetaminophen 5 mg-325 1 tab PO Q6H PRN pain #20 tabs 06/21/23 07/07/23 2 Weeks Ago Rx mg tablet ~06/23/23 losartan 100 mg tablet 100 mg PO DAILY 30 days #30 tabs 07/05/23 07/07/23 07/06/23 Rx Allergies Allergy/AdvReac Type Severity Reaction Status Date / Time milk Allergy Mild ADR-Gastrointestinal Verified 07/06/23 11:26 Upset lanolin Allergy unverified Verified 07/06/23 11:26 metformin AdvReac Mild elevated Verified 07/06/23 11:26 liver enzymes Current Medications Generic Name Dose Route Start Last Admin Trade Name Freq PRN Reason Stop Dose Admin Sodium Chloride 1,000 mls @ 30 mls/hr 07/07/23 09:00 07/07/23 09:25 Sodium Chloride 0.9% IV 07/08/23 08:59 30 mls/hr .Q24H FABY Administration PFSH Anesthesia Medical History Allergic rhinitis Benign essential HTN side effects with HCTZ and amlodipine, pt does not remember what they were. Gastroparesis GERD (gastroesophageal reflux disease) Hepatosplenomegaly Hypokalemia Hyponatremia Lesion of lung Liver fibrosis MARTIN (nonalcoholic steatohepatitis) Psychiatric care Situational anxiety Sleep apnea Type 2 diabetes mellitus, without long-term current use of insulin metformin intolerance. Surgical History History of cholecystectomy History of esophagogastroduodenoscopy (EGD) 2017 x2 Hx of bilateral salpingectomy Hx of section Hx of dilation and curettage Hx of hysterectomy Hx of tonsillectomy Hx of tubal ligation Family History Unknown No problems noted. Father Cardiac arrest Renal failure Diabetes Mother Stroke Grandmother Stroke Diabetes Hypertension Unknown No problems noted. Family/Other Diabetes Myocardial infarction Other Cancer Family history of thyroid problem Social History Smoking and tobacco status: never smoked Alcohol intake: never Substance/Drug Use: never Data Anesthesia Cardiac Studies: Echocardiogram 03/19/23 Cardiac Event Monitor 04/14/23
[2023-07-07 11:01] VITALS: BP 135/89; PULSE 98; RESP 14; TEMP 36.3; O2SAT 95
[2023-07-07 11:10] VITALS: BP 155/96; PULSE 97; RESP 16; O2SAT 99
[2023-07-07 11:20] VITALS: BP 146/91; PULSE 101; RESP 18; O2SAT 98
--- NOTE | 2023-07-07 11:30 | ANE.PACU2 ---
Inpatient post-anesthesia follow up: Airway intact: Yes Vital signs: Temperature 97.3 F Pulse Rate 101 Respiratory Rate 18 Blood Pressure 146/91 Pulse Oximetry 98 Oxygen Delivery Me thod Room Air Oxygen Flow Rate Fraction of Inspir ed Oxygen Hydration adequate: Yes Nausea and vomiting: No Pain level: 1 Mental status: Baseline
== END 2023-07-07 11:40 | disposition home or self-care (01) ==
PROVIDERS: PCP Family Medicine; Visit Provider Surgery
PROC: 0DJD8ZZ Inspection of Lower Intestinal Tract, Via Natural or Artificial Opening Endoscopic (ICD-10-PCS; CPT 45378; 2023-07-07 10:30)
DX: Z12.11 Encounter for screening for malignant neoplasm of colon (principal); R13.10 Dysphagia, unspecified; K21.9 Gastro-esophageal reflux disease without esophagitis; G47.30 Sleep apnea, unspecified; Z91.199 Patient's noncompliance with other medical treatment and regimen due to unspecified reason; I10 Essential (primary) hypertension; E11.9 Type 2 diabetes mellitus without complications; E66.01 Morbid (severe) obesity due to excess calories; Z68.34 Body mass index [BMI] 34.0-34.9, adult
CPT/HCPCS: 36416; 43239; 45378; 82962; 88305; J2001; J2704; J3490; J7030

== ENCOUNTER 2023-07-29 10:15 | Outpatient (CLI) | payer BC, SELFPAY ==
--- NOTE | 2023-07-29 11:00 | FL_ITS ---
WS: [id number] Exam: FL barium swallow modifd [id number] Date/Time of Exam: 07/29/2023 10:54 AM Reason For Exam: Fluoroscopy time: Modified barium swallow was performed in conjunction with the speech therapy verónica Bejarano # of spot films: The patient tolerated thin liquid, nectar consistency and solid barium mixture foodstuffs without asp iration or penetration. The patient ingested a barium pill without difficulty. Oropharyngeal phase of swallowing was normal. IMPRESSION: 1. The patient tolerated all consistencies of barium mixture foodstuffs without penetration or aspira tion. A report of findings and recommendations will also follow from the speech therapy service.
== END 2023-07-29 10:16 | disposition home or self-care (01) ==
LOC: RAD 10:15
PROVIDERS: PCP Family Medicine; Visit Provider Surgery
DX: R13.10 Dysphagia, unspecified (principal)
CPT/HCPCS: 74230; 92611

== ENCOUNTER 2023-08-25 10:37 | Outpatient (CLI) | payer BC, SELFPAY ==
--- NOTE | 2023-08-25 11:00 | MM_ITS ---
WS: [id number] BILATERAL SCREENING DIGITAL TOMOSYNTHESIS MAMMOGRAM WITH CAD HISTORY: Z00.00 - Encounter for general adult medical examination ... COMPARISON: 02/20/2010 Bilateral CC and MLO views with tomosynthesis and synthetic mammography submitted. Computer aided det ection analyzed. Breast composition: There are scattered areas of fibroglandular density. No suspicious masses, microc alcifications or architectural distortion. Benign intramammary lymph nodes within each breast are sta ble. IMPRESSION: MM/[place] [id number] BI-RADS: 2-Benign FOLLOW UP: 1 Year Follow-up
== END 2023-08-25 10:38 | disposition home or self-care (01) ==
LOC: MOBLMAM 10:43
PROVIDERS: PCP Family Medicine; Visit Provider Family Medicine
DX: Z12.31 Encounter for screening mammogram for malignant neoplasm of breast (principal)
CPT/HCPCS: 77063; 77067

== ENCOUNTER 2023-09-09 10:18 | Outpatient (CLI) | payer BC, SELFPAY ==
[2023-09-09 11:13] LABS: Anion Gap 17.5 (5-19); Blood Urea Nitrogen 25 mg/dL (6-20); Carbon Dioxide 29 mmol/L (22-29); Chloride 97 mmol/L (98-107); Glucose 237 mg/dL (65-115); Magnesium 1.6 mg/dL (1.7-2.3); NT Pro B Type Natriuretic Pept 57 pg/mL (0-125); Osmolality Calculated 302 mOsm/kg (285-295); Potassium 3.5 mmol/L (3.5-5.1); Sodium 140 mmol/L (136-145)
== END 2023-09-09 10:19 | disposition home or self-care (01) ==
PROVIDERS: PCP Family Medicine; Visit Provider Internal Medicine Cardiovascular Disease
DX: I10 Essential (primary) hypertension (principal); R06.02 Shortness of breath
CPT/HCPCS: 36415; 80048; 83735; 83880

== ENCOUNTER 2023-09-27 13:56 | Emergency (ER) | payer BC, SELFPAY ==
[2023-09-27 14:04] VITALS: BP 202/105; PULSE 93; RESP 17; TEMP 36.9; O2SAT 100; BMI 32.1
[2023-09-27] MEDS: tetanus-dipt-pertussis 0.5 mL SDV IM (14:24)
[2023-09-27 14:49] VITALS: BP 176/108; PULSE 86; RESP 16; O2SAT 99
--- NOTE | 2023-09-27 14:55 | ED_ITS ---
HPI - Wound/Laceration General: Chief Complaint: Wound/Laceration Stated Complaint: left pointer laceration Time Seen by Provider: 09/27/23 13:57 Source: patient History of Present Illness: 53-year-old female was preparing ham and cut her left index finger. Onset (ago): minute(s) [facility] ED PFSH: Medical History Psychiatric care Type 2 diabetes mellitus, without long-term current use of insulin metformin intolerance. Liver fibrosis Hepatosplenomegaly GERD (gastroesophageal reflux disease) Situational anxiety Benign essential HTN side effects with HCTZ and amlodipine, pt does not remember what they were. Gastroparesis Hypokalemia Hyponatremia Allergic rhinitis Sleep apnea Lesion of lung MARTIN (nonalcoholic steatohepatitis) Surgical History Hx of colonoscopy 07/07/23 Dr. Santos History of esophagogastroduodenoscopy (EGD) 2017 x2 Hx of tonsillectomy Hx of bilateral salpingectomy Hx of section Hx of hysterectomy Hx of dilation and curettage Hx of tubal ligation History of cholecystectomy Family History Unknown No problems noted. Father Cardiac arrest Renal failure Diabetes Mother Stroke Grandmother Stroke Diabetes Hypertension Unknown No problems noted. Family/Other Diabetes Myocardial infarction Other Cancer Family history of thyroid problem Social History Smoking and tobacco/nicotine status: never used tobacco/nicotine Alcohol intake: never Substance/Drug Use: never Physical Exam Narrative: EXAM NARRATIVE: L index finger fingertip laceration approximately half a centimeter no bleeding but is just at the leading edge of the fingernail Procedures Laceration Laceration 1: Site: upper extremity Side (If applicable): left (Index finger) Size (cm): 0.5 Description: linear Depth: simple, single layer Skin layer closed with: other (Dermabond) Course Vital Signs: Vital signs: Vital Signs Temperature 98.5 F 09/27/23 14:04 Pulse Rate 86 09/27/23 14:49 Respiratory Rate 16 09/27/23 14:49 Blood Pressure 176/108 09/27/23 14:49 Pulse Oximetry 99 09/27/23 14:49 Oxygen Delivery Me thod Room Air 09/27/23 14:04 MDM - Wound/Laceration Medical Decision Making Borderline as to needing stitches I think placing stitches will not improve healing or cosmetics and would likely cause more pain than the original laceration because of its proximity to the fingernail bed stitch would have to be driven through the nail so we would have to trephinate the nail at this point to be better to use Dermabond. Patient can reinforce with cyanoacrylate glue at home such as superglue or nail glue used for artificial fingernails. Follow-up with primary care tetanus was updated No radiology studies performed this visit Discharge Plan Discharge Patient Disposition: Home Clinical Impression: Laceration Condition: Stable Prescriptions: No Action carvedilol 25 mg tablet 25 mg PO BID Qty: 180 2RF hydrochlorothiazide 25 mg tablet 37.5 mg PO QAM Qty: 135 2RF miscellaneous medical supply Misc See Rx Instructions miscellaneous .COMPLEX Qty: 1 0RF Rx Instructions: rolling walker with seat as directed; pantoprazole 40 mg tablet,delayed release (DR/EC) 40 mg PO BID 90 Days Qty: 180 1RF (DME) OneTouch Ultra Test Strip See Rx Instructions .ROUTE .COMPLEX Qty: 100 5RF Dose Instruction: USE DIRECTED Rx Instructions: USE DIRECTED dulaglutide 1.5 mg/0.5 mL pen injector 1.5 mg SUBCUT Q7D Qty: 2 2RF Rx Instructions: on wednesday losartan 100 mg tablet 100 mg PO DAILY 30 Days Qty: 30 2RF tizanidine 4 mg tablet 4 mg PO TID PRN (Reason: muscle spasticity) 30 Days Qty: 90 0RF acetaminophen [Tylenol Extra Strength] 500 mg Tablet 1,000 mg PO BID diphenhydramine HCl [Benadryl] 25 mg Capsule 25 mg PO BID PRN (Reason: Itching) echinacea 500 mg Capsule 500 mg PO BID Rx Instructions: administer with meals Anna-Garlic Juice-Apple Cide See Rx Instructions .ROUTE .COMPLEX Rx Instructions: one capful with 2 oz of water and drink as needed for leg cramps fluticasone propionate 50 mcg/actuation spray,suspension 2 spray INTRANASAL DAILY PRN (Reason: Sinus Symptoms) Rx Instructions: administer into each nostril oxycodone-acetaminophen 5-325 mg tablet 1 tab PO Q6H PRN (Reason: pain) Qty: 20 0RF docusate sodium [Colace] 100 mg capsule 100 mg PO BID Qty: 14 0RF Discharge Orders: Discharge ED (Routine); Ordered 09/27/23 Ordered By: Adriano Blakely Referrals: Susy Winn MD [Primary Care Provider] - Discharge Diet: Usual diet Discharge Activity: Increase activity as tolerated Patient Instructions: Laceration (ED), Opioid Safety, Pain Management Activity Restrictions/Additional Instructions: Thank you for choosing [facility] for your healthcare needs today. Please realize this is an emergency room and that we are providing you with a medical screening exam and this may not be complete and all inclusive of all the testing and or work up that you may need to determine your ailment or severity of your illness. It is very important that you follow up as instructed or that you return to the Emergency Department should you have concerns or if your condition changes or worsens in any way. You were seen today for a laceration to the fingertip. This was treated with Dermabond. You can reinforce this with superglue or nail glue over the next 3 to 4 days. Your tetanus was updated follow-up as needed. Coding Level of Care Code ED Education Program Associate for Michoacano De Oliveira
== END 2023-09-27 14:50 | disposition home or self-care (01) ==
PROVIDERS: Emergency Provider Family Medicine; PCP Family Medicine
DX: S61.211A Laceration without foreign body of left index finger without damage to nail, initial encounter (principal); E11.9 Type 2 diabetes mellitus without complications; I10 Essential (primary) hypertension; W26.0XXA Contact with knife, initial encounter; Z79.85 Long-term (current) use of injectable non-insulin antidiabetic drugs; Z23 Encounter for immunization
CPT/HCPCS: 12001; 90471; 90715; 99283

== ENCOUNTER → 2023-10-06 08:44 | Outpatient (BNVA) | payer BC, SELFPAY | PROVIDERS: PCP Family Medicine; Visit Provider Family Medicine | DX: E11.9 Type 2 diabetes mellitus without complications (principal); I10 Essential (primary) hypertension | CPT/HCPCS: 80048; 83036 ==

== ENCOUNTER 2023-10-14 08:29 | Outpatient (CLI) | payer BC, SELFPAY ==
--- NOTE | 2023-10-14 | ECG_ITS ---
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 Interpretive Statements NAME OF STUDY: LEXISCAN SESTAMIBI STRESS TEST INDICATION: Chest Pain RESULTS TO DR REID PROCEDURE: At the baseline, the EKG revealed normal sinus rhythm with a normal ST Ts.. The baseline heart was 81 bpm with a blood pressue of 135/87 mm of Hg Lexiscan was infused over a period of 20 seconds. A total of 0.4 milligrams of Lexiscan was infused. The stress phase was continued for a total of 5 minutes. Heart rate at the end of the stress phase was 88 bpm with a blood pressure 111/81 mm of Hg. The EKG at the peak infusion revealed no significant changes. Sestamibi was injected 20 seconds after the Lexiscan infusion. Heart rate at the end of the recovery phase was 88 bpm with a blood pressure of 111/81 mm of Hg. CONCLUSION: 1. No significant EKG changes with the LexiScan infusion 2. No LexiScan induced chest pain or cardiac arrhythmia 3. Normal blood pressure and heart rate response 4. Sestamibi/sestamibi perfusion scan pending; see separate report. Electronically Signed On 10-15-2023 18:36:18 VISUALIZATION DEVELOPER by Kasey Mckeon M.D. [id number]
[2023-10-14 08:35] VITALS: BMI 32.1
--- NOTE | 2023-10-14 08:42 | NMCV_ITS ---
NM marissa perf SPECT r/s* [id number] Vaishali Jean Age: 53 Gender: F : 1970 Exam Date: 10/14/2023 08:42 Ordering Phys: Kath Colon MD ([email or web address]) Technologist: KRYSTAL Zapien Exam [facility]: [facility] Indications: CHEST PAIN STRESS TEST Please see separate stress test report in [facility] for full findings IMAGE PROTOCOL Rest/Stress 1 Lexiscan Day Radiopharmaceutical Dose (mCi) Administration Site Administered by Rest: Tc-99m 11.0 IV KRYSTAL Zapien Sestamibi Stress:Tc-99m 32.3 IV KRYSTAL Ornelas Sestamibi Rest: 10/14/2023 60 Discovery 630 Stress: 10/14/2023 30 Discovery 630 0.4mg Lexiscan. Images obtained in supine and prone position. SPECT RESULTS Technical Quality: Excellent Raw Data Analysis: Normal Image Corrections: No attenuation or motion correction applied Summed Stress Score: 6 Summed Rest Score: 1 Summed Difference Score: 5 PERFUSION FINDINGS Moderate area of moderately decreased aseptic was noted in the mid anterior, and region with significant reversibility with the supine imaging . Small area of slightly decreased aseptic in the mid inferolateral region with some reversibility in the supine region. However the prone imaging, no significant reversible defects were noted. FUNCTIONAL RESULTS (calculated via Gated SPECT) Stress Image LV EF (%): 59 Stress EDV (mL):69 TID: 0.88 Stress ESV (mL):28 FUNCTIONAL FINDINGS: Segmental wall motion analysis revealing no gross wall motion abnormalities IMPRESSIONS 1. Myocardial perfusion imaging revealing moderate area of reversible defect involving the anterior and anterolateral region, suggesting ischemia in the distribution of the left and descending artery. However because of the inconsistency with the supine imaging, the reliability of this finding is questionable. With the SPECT imaging, the ischemia appears to be very small. 2. Normal LV ejection fraction of 59%. 3. LV wall motion analysis revealing no gross wall motion abnormalities. 4. Normal LV volume No similar previous studies are available for comparison Dr Kasey Mckeon MD [facility] (Electronically Signed) Final Date: 14 October 2023 13:26 S
[2023-10-14] MEDS: regadenoson 0.4 Mg/5 ml Syringe IVP (11:05)
[2023-10-14 11:24] VITALS: BP 111/84; PULSE 82
== END 2023-10-14 08:30 | disposition home or self-care (01) ==
PROVIDERS: PCP Family Medicine; Visit Provider Internal Medicine Cardiovascular Disease
DX: R07.9 Chest pain, unspecified (principal); R93.1 Abnormal findings on diagnostic imaging of heart and coronary circulation
CPT/HCPCS: 36415; 78452; 93017; 96374; A9500; J2785

== ENCOUNTER 2023-11-15 05:47 | Outpatient (CLI) | payer BC, SELFPAY ==
[2023-11-10 10:07] LABS: Basophils # 0.1 10^3/uL (0.0-0.1); Basophils % 0.6 %; Eosinophils # 0.2 10^3/uL (0.0-0.8); Eosinophils % 2.2 %; Hematocrit 34.8 % (36-47); Lymphocytes # 2.7 10^3/uL (0.8-4.8); Lymphocytes % 34.6 %; Mean Corpuscular HGB Conc 35.1 g/dL (30-55); Mean Corpuscular Hemoglobin 29.8 pg (27-33); Mean Corpuscular Volume 84.9 fl (85-98); Mean Platelet Volume 9.6 fL (7.4-10.4); Monocytes # 0.4 10^3/uL (0.2-0.9); Monocytes % 5.5 %; Neutrophils % 56.2 %; Nucleated Red Blood Cells % 0 %; Platelet Count 282 10^3/cmm (157-399); Red Cell Distribution Width 14.1 % (12.1-15.1); White Blood Count 7.83 10^3/uL (3.29-11.43)
[2023-11-10 10:21] LABS: INR 0.98 (0.83-1.21); Prothrombin Time (Patient) 13.3 Seconds (12.0-15.1)
[2023-11-10 10:33] LABS: Anion Gap 15.8 (5-19); Blood Urea Nitrogen 23 mg/dL (6-20); Calcium 9.2 mg/dL (8.5-10.5); Carbon Dioxide 25 mmol/L (22-29); Chloride 100 mmol/L (98-107); Glucose 266 mg/dL (65-115); Osmolality Calculated 297 mOsm/kg (285-295); Potassium 3.8 mmol/L (3.5-5.1); Sodium 137 mmol/L (136-145)
[2023-11-15] VITALS (16 sets, daily range): BP systolic 104–163; BP diastolic 68–109; PULSE 74–87; RESP 15–21; TEMP 36.7; O2SAT 93–97; BMI 31.7
--- NOTE | 2023-11-15 06:00 | XACV_ITS ---
Ht: 163 cm Wt: 83 kg BSA: 1.97 m2 Gender: Female : 1970 Any Known Allergies: Other Exam Priority: Routine Indication(s): - Chest pain - Abnormal nuclear perfusion study - Dyspnea with exertion Procedure(s): Procedure Description: Diagnostic procedure Procedure Description: Left Heart Catheterization Procedure Description: Left ventriculography Procedure Description: Coronary Angiography Diagnostic Cath Status: Elective Diagnostic Findings * INDICATION: Chest pain/dyspnea on exertion/abnormal stress test. * No disease noted in the Left Main, Left Anterior Descending, Right, or Circumflex coronary arteries. * Coronary angiography shows right dominance. Conclusions 1. No disease noted in the Left Main, Left Anterior Descending, Right, or Circumflex coronary arteries. 2. Normal left ventricular systolic function. Ejection fraction of 60%. Recommendations * Aggressive risk factor modification. * Outpatient cardiology follow up in 4 weeks. Interventional RX Recommendation: medical therapy and/or counseling Diagnostic RX Recommendation: medical therapy and/or counseling Anticoagulation: Heparin Ventriculography Ejection Fraction: 60.0 % Pressures Phase:Rest AO : 2 / -1 ( 0 ) @ 8:13:00 AM 136 / 88 ( 111 ) @ 8:27:00 AM 137 / 88 ( 111 ) @ 8:27:00 AM LV : 140 / -7 / 17 @ 8:26:00 AM 144 / -1 / 23 @ 8:26:00 AM 144 / -1 / 23 @ 8:27:00 AM Valves Phase:DefaultPhase AV : 8.0 @ 8:35:00 AM AV Mean Gradient: 11.0 @ 8:35:00 AM 11.0 @ 8:35:00 AM Clinical Evaluation EBL: 5mL-10mL Procedural Details Procedure Consent Obtained. Current Diagnosis : Chest Pain. Pre-Procedure Time Out. Identified patient by full name and date of as verbalized by the patient/guarantor. Does the consent match the physician's order: Yes. Accurate & Complete Informed Consent: Yes. Inpatient/Outpatient History & Physical on Chart: Yes. If H&P is completed, is and addenduem needed: No; If yes, is the addendum complete: N/A. Visualize and Verify Site with Patient/Guarantor: N/A. Relevant Radiology Images available: N/A. The risks, benefits, and alternatives of sedation and/or procedure were discussed by physician. The patient agrees to continue. Procedure started. [facility] Clinical Fraility Score: 3: Managing Well. 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 Chest Pain Symptom Assessment: Typical Angina Symptoms. Cardiovascular Instability: No, stable. Correct patient, site and procedure confirmed by cath team. Current diagnosis: Stable angina. PERRLA. Strong, equal hand personal injury legal assistant bilaterally. Lungs clear x 5 lobes. IV Site on Arrival: 20 gauge in the left anticubital. IV Fluids: 0.9% NaCl at KVO. 0 mL infused prior to dental laboratory supervisor. Pre Procedural Pulses: bilateral posterior tibial was 3+. Pre Procedural Pulses: bilateral dorsalis pedis was 3+. Pre Procedural Pulses: bilateral radial was 3+. Oxygen started at 3liters/min via nasal canula. right groin was prepped with chloroprep then draped in the usual sterile fashion. right radial was prepped with chloroprep then draped in the usual sterile fashion. Physician notified. Family updated by MD prior to the start of the procedure. Physician arrived. Equipment: 5F - Radial. Equipment: 5F - Femoral. Equipment: 6F - Radial. Equipment: 6F - Femoral. Cardiac Cath Pack. ACIST Manifold Kit Model BT 2000. Heparinized Saline (2 units/mL), 1000 mL bag. Physician scrubbed in. Immediate Pre-Procedure Time Out. Correct Patient: Yes; Correct Procedure: Yes; Correct Site: Yes; Correct Patient Position: Yes; Correct Supplies: Yes; Dried Flammable Prep: Yes; Blood Products Available: N/A;. Lidocaine 1% infiltrated to the right radial. Arterial access obtained. A 5 guyanese JR4 catheter in over wire. Multiple views taken of right coronary artery. Catheter removed over the exchange wire. A 5 guyanese JL3.5 catheter in over wire. Multiple views taken of left coronary artery. Catheter removed over the exchange wire. A 5 guyanese Straight Pig catheter in over wire. EDP Sample taken: LV 140/-8,17; HR: 82 BPM; SpO2: 97%. LV gram performed in RAYMUNDO @ 10 mL/second for a total of 30 mL. Patient EF: Normal. EDP Sample taken: LV 144/-2,23; HR: 82 BPM; SpO2: 98%. Pullback taken: LV 144/-2,23; AO 136/88(111); Mean: 11mmHg, Peak to Peak: 8mmHg, SEP: 19sec/min; HR: 81 BPM; SpO2: 98%. Catheter removed over the exchange wire. Physician review of films. Physician scrubbed out. A TR Band was successful obtaining hemostatsis at the Right Radial artery insertion site. TR band placed. Hemostasis obtained. Post Procedure: Pulses reassessed and unchanged. PERRLA. Strong, equal hand personal injury legal assistant bilaterally. No VTE prophylaxis required. Medication waste: Nitro- 49.8 mg Heparin- 1000 units Lidocaine- 2 ml Fentanyl- 75 mcg. Total IV fluids: 30 mL. Fluoro: 2:00. Contrast type used: Omnipaque 300 mg/mL, 150 mL bottle. [id number]. Post-op diagnosis: Non Obstuctive CAD. Complications: None. Estimated blood loss: 5mL-10mL. Responsiveness - Normal response to verbal stimuli; alert and oriented, PERRLA. Airway - Unaffected, no intervention required; spontaneous ventilation. Circulation: W/N/L, pulses unchanged. Nausea/Vomiting: No. Procedure completed. Patient transferred by wheelchair to CPRU. Vital chart was stopped. Access Site Site: Right Radial artery Sheath Size: 6 Fr Hemostasis Method: TR Band Hemostasis Success: Successful Procedure Medications Start: 8:14 AM Stop: 8:14 AM Medication: Versed Amount: 1 mg Route: I.V. Start: 8:15 AM Stop: 8:15 AM Medication: Versed 1 mg and Fentanyl 25 mcg Amount: 1 Route: I.V. Start: 8:17 AM Stop: 8:17 AM Medication: Nitrogylcerin Amount: 200 mcg Route: I.A. Start: 8:19 AM Stop: 8:19 AM Medication: Heparin Amount: 5000 units Route: I.V. I, the attending physician, have reviewed and verified all procedure medications. Yes, all medications given per verbal order History/Risk Factors Hypertension: Yes Dyslipidemia: Yes Peripheral Arterial Disease (PAD): No Myocardial Infarction (NV): No Obesity: Yes Renal Disease: No Tobacco Use: Never Prior Interventions PCI: No CABG: No Valve Surgery: No Report Signatures Finalized by Roshan Torres MD on 11/15/2023 09:12 AM
[2023-11-15] MEDS: aspirin 325 mg Tablet PO (06:39)
[2023-11-15 07:24] LABS: Glucose Point of Care 246 mg/dL (70-110)
--- NOTE | 2023-11-15 08:02 | P.HP_ITS ---
Same Day Surgery H&P Indication for Procedure/HPI DATE OF PROCEDURE: November 15, 2023 CHIEF COMPLAINT/INDICATIONFOR SURGICAL PROCEDURE: Chest pain/ dyspnea on exertion/abnormal stress test PREOP DIAGNOSIS: Chest pain/ dyspnea on exertion/abnormal stress test PLANNED PROCEDURE: Operation Date: 11/15/23 07:00 Proposed Procedures p [facility] 20096, R94.39(Left) - Roshan Torres M.D Possible percutaneous coronary intervention 53-year-old woman with past medical history of hypertension was been having on and off chest pain and worsening dyspnea on exertion. She had a stress test done that is abnormal showing ischemia in LAD territory. Medications/Allergies* Home Medications Medication Instructions Recorded Confirmed Type acetaminophen 500 mg tablet 1,000 mg PO BID 05/21/20 11/15/23 History (Tylenol Extra Strength) Anna-Garlic Juice-Apple Cide See Rx Instructions .Route .COMPLEX 03/31/23 11/15/23 History diphenhydramine HCl 25 mg capsule 25 mg PO BID PRN Itching 03/31/23 11/15/23 History (Benadryl) echinacea 500 mg capsule 500 mg PO BID 03/31/23 11/15/23 History fluticasone propionate 50 2 spray intranasal DAILY PRN Sinus 06/18/23 11/15/23 History mcg/actuation nasal Symptoms spray,suspension Allergies/Adverse Reactions Allergy/AdvReac Type Severity Reaction Status Date / Time milk Allergy Mild ADR-Gastrointestinal Verified 11/15/23 06:41 Upset lanolin Allergy unverified Verified 11/15/23 06:41 metformin AdvReac Mild elevated Verified 11/15/23 06:41 liver enzymes Current Medications: Generic Name Dose Route Start Last Admin Trade Name Freq PRN Reason Stop Dose Admin Sodium Chloride 1,000 mls @ 50 mls/hr 11/15/23 06:00 11/15/23 06:39 Sodium Chloride 0.9% IV 11/16/23 01:59 Not Given .Q20H ONE Pertinent History/Comorbid Conditions* Medical History (Updated 10/06/23 @ 09:06 by Susy Winn MD) Psychiatric care Type 2 diabetes mellitus, without long-term current use of insulin metformin intolerance. Liver fibrosis Hepatosplenomegaly GERD (gastroesophageal reflux disease) Situational anxiety Benign essential HTN side effects with HCTZ and amlodipine, pt does not remember what they were. Gastroparesis Hypokalemia Hyponatremia Allergic rhinitis Sleep apnea Lesion of lung MARTIN (nonalcoholic steatohepatitis) Surgical History (Updated 07/20/23 @ 10:02 by Reginaldo Santos DO) Hx of colonoscopy 07/07/23 Dr. Santos History of esophagogastroduodenoscopy (EGD) 2016 x2 Hx of tonsillectomy Hx of bilateral salpingectomy Hx of section Hx of hysterectomy Hx of dilation and curettage Hx of tubal ligation History of cholecystectomy Family History (Updated 03/03/23 @ 09:34 by Tiffany Trevino, SHABBIR) Diabetes Father Grandmother Family/Other Cardiac arrest Father Myocardial infarction Family/Other Renal failure Father Family history of thyroid problem Cancer Hypertension Grandmother Stroke Mother Grandmother Social History Smoking and tobacco/nicotine status: never used tobacco/nicotine Alcohol intake: never Substance/Drug Use: never Pertinent Exam Findings alert, oriented x 3, clear to auscultation bilaterally and regular rate & rhythm Conscious Sedation Assessment PATIENT ASSESSED PRIOR TO SEDATION, WITH NO CHANGE NOTED: Yes AIRWAY EVAL/ANESTHESIA PLAN: normal airway, ASA III, Local Anesthesia, Risks, benefits & alternatives of sedation and/or procedure discussed and Patient agrees to continue as planned ADDITIONAL INFORMATION: Moderate sedation Recommendations Surgery/Procedure today Other Plans: Left heart cath with possible percutaneous coronary intervention Coding Level of Care Code Acute Code for Chg Fwd
--- NOTE | 2023-11-15 08:54 | SUR.PREOP ---
POST CATH NOTE Received patient from senior cytogenetics laboratory director status post cardiac catheterization via the right radial approach. TR Band in place. Site is hemostatic. Vitals and assessments per flowsheet. Call light within reach. Family at bedside. Verbal post cath instuctions went over with the patient.
--- NOTE | 2023-11-15 09:40 | SUR.PHASEII ---
iv fluids IV fluids- 0.9% NS at 75 ml/hr post cath as ordered.
== END 2023-11-15 12:31 | disposition home or self-care (01) ==
PROVIDERS: PCP Family Medicine; Visit Provider Internal Medicine
DX: R94.39 Abnormal result of other cardiovascular function study (principal); R07.89 Other chest pain; I10 Essential (primary) hypertension; K21.9 Gastro-esophageal reflux disease without esophagitis; E78.5 Hyperlipidemia, unspecified; E66.9 Obesity, unspecified; Z68.31 Body mass index [BMI] 31.0-31.9, adult
CPT/HCPCS: 36415; 36416; 80048; 82962; 85025; 85610; 93458; 96361; 96365; 99152; 99153; C1769; C1887; C1894; J1644; J2250; J3010; J3490; J7030; Q9967

== ENCOUNTER → 2023-11-29 13:52 | Outpatient (BNVA) | payer BC, SELFPAY | PROVIDERS: PCP Family Medicine; Visit Provider Nurse Practitioner Family | DX: I10 Essential (primary) hypertension (principal) | CPT/HCPCS: 36415; 80048 ==

== ENCOUNTER 2023-12-15 06:57 | Outpatient (CLI) | payer BC, SELFPAY ==
--- NOTE | 2023-12-15 07:15 | USCV_ITS ---
Ted Vaishali Age: 53 Gender: F : 1970 Exam Date: 12/15/2023 07:10 Ordering Phys: Roshan Torres M.D ([email or web address]) Technologist: [place] [facility] [place]: Swelling Lt Leg HISTORY: Intermitten swelling Lt Leg PROCEDURES: Venous duplex imaging was performed in only the left lower extremity. The following venous structures were evaluated: common femoral vein, profunda vein, proximal portion of the greater saphenous vein, superficial femoral vein, and the popliteal vein. In addition, the posterior tibial and peroneal trunk were evaluated. Serial compression, augmentation maneuvers, and spectral Doppler flow evaluation were performed. FINDINGS: Normal 2-D Doppler and augmentation and compressibility throughout the lower extremity venous structures. Additional imaging through the proximal calf veins also reveals no thrombus. Limited evaluation of the greater saphenous vein is patent with no thrombus. Andino's cyst seen medial Lt Pop Fossa CONCLUSIONS No DVT left lower extremity. Left popliteal fossa Andino's cyst. Dr. Dianna Mcallister DO (Electronically Signed) Final Date: 15 December 2023 07:39 S
== END 2023-12-15 06:58 | disposition home or self-care (01) ==
LOC: RAD 06:58
PROVIDERS: PCP Family Medicine; Visit Provider Internal Medicine
DX: M79.89 Other specified soft tissue disorders (principal); M71.22 Synovial cyst of popliteal space [Baker], left knee
CPT/HCPCS: 93971

== ENCOUNTER → 2024-01-13 08:42 | Outpatient (BNVA) | payer BC, SELFPAY | PROVIDERS: PCP Family Medicine; Referring Provider Family Medicine; Visit Provider Family Medicine | DX: I10 Essential (primary) hypertension (principal); E11.9 Type 2 diabetes mellitus without complications | CPT/HCPCS: 80048; 83036; 83735 ==

== ENCOUNTER → 2024-02-08 13:12 | Outpatient (BNVA) | payer BC, SELFPAY | PROVIDERS: PCP Family Medicine; Visit Provider Student in an Organized Health Care Education/Training Program | DX: G56.03 Carpal tunnel syndrome, bilateral upper limbs (principal); G56.23 Lesion of ulnar nerve, bilateral upper limbs | CPT/HCPCS: 73110 ==

== ENCOUNTER 2024-03-22 05:33 | Day surgery (SDC) | payer BC, SELFPAY ==
[2024-03-22] VITALS (10 sets, daily range): BP systolic 93–118; BP diastolic 60–82; PULSE 65–72; RESP 16–22; TEMP 36.3–36.4; O2SAT 93–99; BMI 33.6
[2024-03-22 06:13] LABS: Glucose Point of Care 276 mg/dL (70-110)
[2024-03-22] MEDS: sodium chloride 0.9% 1,000 ML 30 ML IV (06:16)
[2024-03-22] MEDS: scopolamine 1.5 Patch 1 PATCH TRANSDERMA (06:16)
[2024-03-22] MEDS: acetaminophen 1,000 MG/100 ML PIGGYBACK 400 MG IV (06:16)
[2024-03-22] MEDS: ketorolac 30 mg/mL INJ IVP (06:17)
--- NOTE | 2024-03-22 06:43 | P.ANESASSM_ITS ---
Pre-Anesthetic Assessment Height/Weight: Height 1.63 m Weight 88.904 kg Temp Pulse Resp BP Pulse Ox O2 Del Method 97.4 F L 72 16 115/68 97 Room Air 03/22/24 06:01 03/22/24 06:01 03/22/24 06:01 03/22/24 06:01 03/22/24 06:01 03/22/24 06:01 Operation Date: 03/22/24 07:00 Proposed Procedures p Carpal Tunnel Release(Right) - Jimmy Winnebago, DO s Cubital Tunnel Release(Right) - Jimmy Winnebago, DO s Ulnar Nerve Transposition possible(Right) - Jimmy Narendra, DO Familial anesthetic complications: None Was Beta Milad taken within 24 hours: Yes Was Clonidine taken within 24 hours: N/A Last intake: Intake Last Liquid Date 03/21/24 Last Liquid Time 21:30 Last Solid Date 03/21/24 Last Solid Time 20:00 Social No alcohol and No tobacco Exam alert, oriented x 3, clear to auscultation bilaterally and regular rate & rhythm Airway Mallampati: Class IV Dentition: other (several missing, 1 broken) Pulmonary Sleep Apnea CV/HEM Hypertension CP w/ negative cardiac workup (Cath, holter, and echo) - denies any further CP Hepatic MARTIN GI Gastroesophageal Reflux Disease Metabolic Diabetes Mellitus and Morbid Obesity Anesthetic Plan ASA status: 3 Anesthesia: General Risk of > 500 ml blood loss (7ml/kg in children): No Medications/Allergies Home Medications Medication Instructions Recorded Confirmed Last Taken Type acetaminophen 500 mg tablet 1,000 mg PO BID 05/21/20 03/21/24 11/14/23 20:30 Hi story (Tylenol Extra Strength) blood sugar diagnostic (OneTouch #100 ea 09/26/22 02/08/24 Unknown Rx Ultra Test strips) Anna-Garlic Juice-Apple Cide See Rx Instructions .Route .COMPLEX 03/31/23 03/21/24 04/24/23 History diphenhydramine HCl 25 mg capsule 25 mg PO BID PRN Itching 03/31/23 03/21/24 11/15/23 05:15 History (Benadryl) echinacea 500 mg capsule 500 mg PO BID 03/31/23 03/21/24 03/21/24 History miscellaneous medical supply See Rx Instructions miscellaneous 05/04/23 03/21/24 Unknown Rx .COMPLEX #1 ea fluticasone propionate 50 2 spray intranasal DAILY PRN Sinus 06/18/23 03/21/24 03/21/24 History mcg/actuation nasal Symptoms spray,suspension carvedilol 25 mg tablet 25 mg PO BID #180 tabs 09/02/23 03/22/24 03/22/24 Rx hydrochlorothiazide 50 mg tablet 37.5 mg (0.75 x 50 mg) PO QAM #90 09/30/23 03/21/24 03/21/24 Rx tabs pantoprazole 40 mg tablet,delayed 40 mg PO BID 90 days #180 tabs 10/06/23 03/21/24 03/21/24 Rx release semaglutide 0.25 mg or 0.5 mg (2 0.25 mg (0.187 mL) SUBCUT .weekly 10/06/23 03/21/24 03/07/24 Rx mg/1.5 mL) subcutaneous pen 28 days #1.5 mL injector tizanidine 4 mg tablet 4 mg PO TID PRN muscle spasticity 10/06/23 03/21/24 03/17/24 Rx 30 days #90 tabs hydralazine 50 mg tablet 50 mg PO BID #180 tabs 10/26/23 03/22/24 03/22/24 Rx losartan 100 mg tablet 100 mg PO DAILY #90 tabs 11/29/23 03/21/24 03/21/24 Rx isosorbide mononitrate 30 mg 30 mg PO DAILY #90 tabs 12/23/23 03/22/24 03/22/24 Rx tablet,extended release 24 hr furosemide 20 mg tablet (Lasix) 20 mg PO DAILY PRN edema 90 days 01/05/24 03/21/24 03/21/24 Rx #90 tabs potassium chloride 8 mEq 8 meq PO DAILY PRN with lasix 90 01/05/24 03/21/24 03/19/24 Rx capsule,extended release days #90 caps diltiazem HCl 120 mg 120 mg PO BID #180 caps 01/21/24 03/22/24 03/22/24 Rx capsule,extended release 12 hr magnesium oxide 400 mg PO DAILY 90 days #90 tabs 01/25/24 03/21/24 03/18/24 Rx Allergies Allergy/AdvReac Type Severity Reaction Status Date / Time milk Allergy Mild ADR-Gastrointestinal Verified 03/22/24 05:58 Upset lanolin Allergy unverified Verified 03/22/24 05:58 metformin AdvReac Mild elevated Verified 03/22/24 05:58 liver enzymes Current Medications Generic Name Dose Route Start Last Admin Trade Name Freq PRN Reason Stop Dose Admin Sodium Chloride 1,000 mls @ 30 mls/hr 03/22/24 06:00 03/22/24 06:16 Sodium Chloride 0.9% IV 03/23/24 05:59 30 mls/hr .Q24H FABY Administration PFSH Anesthesia Medical History Psychiatric care Type 2 diabetes mellitus, without long-term current use of insulin metformin intolerance. Liver fibrosis Hepatosplenomegaly GERD (gastroesophageal reflux disease) Situational anxiety Benign essential HTN side effects with HCTZ and amlodipine, pt does not remember what they were. Gastroparesis Hypokalemia Hyponatremia Allergic rhinitis Sleep apnea Lesion of lung MARTIN (nonalcoholic steatohepatitis) Surgical History (Updated 02/14/24 @ 08:31 by Reginaldo Santos DO) Hx of colonoscopy 07/07/23 Dr. Santos History of esophagogastroduodenoscopy (EGD) 2017 x2 Hx of tonsillectomy Hx of bilateral salpingectomy Hx of section Hx of hysterectomy Hx of dilation and curettage Hx of tubal ligation History of cholecystectomy Family History Unknown No problems noted. Father Cardiac arrest Renal failure Diabetes Mother Stroke Grandmother Stroke Diabetes Hypertension Unknown No problems noted. Family/Other Diabetes Myocardial infarction Other Cancer Family history of thyroid problem Social History Smoking and tobacco/nicotine status: never used tobacco/nicotine Alcohol intake: never Substance/Drug Use: never Data Anesthesia Cardiac Studies: Echocardiogram 03/19/23 Sestamibi Stress Test (Cardiology) 10/14 Cardiac Event Monitor 10/11/23
--- NOTE | 2024-03-22 06:57 | W.PM.OPSFHP ---
Same Day Surgery H&P Indication for Procedure/HPI DATE OF PROCEDURE: March 22, 2024 CHIEF COMPLAINT/INDICATIONFOR SURGICAL PROCEDURE: Right carpal tunnel syndrome, right cubital tunnel syndrome PREOP DIAGNOSIS: Right carpal tunnel syndrome, right cubital tunnel syndrome PLANNED PROCEDURE: Operation Date: 03/22/24 07:00 Proposed Procedures p Carpal Tunnel Release(Right) - Jimmy Mackey DO s Cubital Tunnel Release(Right) - Jimmy Mackey DO s Ulnar Nerve Transposition possible(Right) - Jimmy Mackey DO Medications/Allergies* Home Medications Medication Instructions Recorded Confirmed Type acetaminophen 500 mg tablet 1,000 mg PO BID 05/21/20 03/21/24 History (Tylenol Extra Strength) Anna-Garlic Juice-Apple Cide See Rx Instructions .Route .COMPLEX 03/31/23 03/21/24 History diphenhydramine HCl 25 mg capsule 25 mg PO BID PRN Itching 03/31/23 03/21/24 History (Benadryl) echinacea 500 mg capsule 500 mg PO BID 03/31/23 03/21/24 History fluticasone propionate 50 2 spray intranasal DAILY PRN Sinus 06/18/23 03/21/24 History mcg/actuation nasal Symptoms spray,suspension Allergies/Adverse Reactions Allergy/AdvReac Type Severity Reaction Status Date / Time milk Allergy Mild ADR-Gastrointestinal Verified 03/22/24 05:58 Upset lanolin Allergy unverified Verified 03/22/24 05:58 metformin AdvReac Mild elevated Verified 03/22/24 05:58 liver enzymes Current Medications: Generic Name Dose Route Start Last Admin Trade Name Freq PRN Reason Stop Dose Admin Sodium Chloride 1,000 mls @ 30 mls/hr 03/22/24 06:00 03/22/24 06:16 Sodium Chloride 0.9% IV 03/23/24 05:59 30 mls/hr .Q24H FABY Administration Pertinent History/Comorbid Conditions* Medical History (Updated 02/08/24 @ 15:02 by Jimmy Mackey DO) Psychiatric care Type 2 diabetes mellitus, without long-term current use of insulin metformin intolerance. Liver fibrosis Hepatosplenomegaly GERD (gastroesophageal reflux disease) Situational anxiety Benign essential HTN side effects with HCTZ and amlodipine, pt does not remember what they were. Gastroparesis Hypokalemia Hyponatremia Allergic rhinitis Sleep apnea Lesion of lung MARTIN (nonalcoholic steatohepatitis) Surgical History (Updated 02/14/24 @ 08:31 by Reginaldo Santos DO) Hx of colonoscopy 07/07/23 Dr. Santos History of esophagogastroduodenoscopy (EGD) 2017 x2 Hx of tonsillectomy Hx of bilateral salpingectomy Hx of section Hx of hysterectomy Hx of dilation and curettage Hx of tubal ligation History of cholecystectomy Family History (Updated 03/03/23 @ 09:34 by Tiffany Trevino RN) Diabetes Father Grandmother Family/Other Cardiac arrest Father Myocardial infarction Family/Other Renal failure Father Family history of thyroid problem Cancer Hypertension Grandmother Stroke Mother Grandmother Social History Smoking and tobacco/nicotine status: never used tobacco/nicotine Alcohol intake: never Substance/Drug Use: never Pertinent Exam Findings alert, oriented x 3, operative site marked and procedure specific exam findings Please refer to detailed orthopedic examination dated on 02/07/2024 for detail orthopedic examination. Listed below: Bilateral upper extremity examination: Negative Spurling's normal C-spine range of motion no pain Negative Tinel's bilaterally at the shoulders Positive Tinel's over the cubital tunnel bilaterally Positive bilateral elbow flexion test Subtle intrinsic weakness noted on the left side comparative to the right no significant intrinsic atrophy Positive Tinel's over the carpal tunnel bilaterally Positive Phalen's bilaterally positive median nerve compression test bilaterally Positive thenar weakness bilaterally with subtle atrophy Recommendations Surgery/Procedure today Other Plans: Plan to proceed to the OR today for right carpal tunnel release, right cubital tunnel release with possible ulnar nerve transposition. Patient understands and Zetts procedure risk benefits complication alternatives of surgery and through shared she is making less proceed with surgical intervention. All questions answered. Coding Level of Care Code Acute Code for Chg Fwd
[2024-03-22] MEDS: ceFAZolin 2,000 MG in sodium chloride 0.9% (plus) 50 ML 100 MG IV (07:00)
[2024-03-22] MEDS: ROPivacaine 0.5% SDV 30 mL 50 MG INJECTION (07:28)
[2024-03-22] MEDS: lidocaine-epi 1% 20 mL INJ 10 ML INJECTION (07:28)
--- NOTE | 2024-03-22 08:12 | P.BOP_ITS ---
Date of Procedure: 03/22/2024 Surgeon: Jimmy Mackey DO Supervisor Partial Denture Department(s): [facility] Procedure(s) performed: Right carpal tunnel release Right cubital tunnel release Findings of the procedure(s): [Patient found to have right carpal tunnel syndrome, right cubital tunnel syndrome and right procedure as planned without issues or complications] Estimated blood loss: 5 mL Specimen(s) removed: None Post-operative diagnosis: Right carpal tunnel syndrome, right cubital tunnel syndrome
--- NOTE | 2024-03-22 08:13 | PM.OP ---
Operative Report Date of procedure: March 22, 2024 Surgeon: Jimmy Mackey DO Superintendent System Operation: [facility] Procedure: Preoperative diagnosis: Right carpal tunnel syndrome, right cubital tunnel syndrome postop Diagnosis: Same Procedure done: Right carpal tunnel release Right?cubital tunnel tunnel release (ulnar nerve decompression at elbow) Surgeon: Jimmy Mackey DO Estimated blood loss: 5 mL Tourniquet? 17 minutes IV fluids: 1000 mL Complications: None Findings: See operative report narrative Condition: stable Disposition: same day Brief History: Patient's been seen and worked up in the outpatient setting and findings consistent with preoperative diagnosis.? Patient has right carpal tunnel syndrome as well as right?cubital tunnel syndrome which has been worked up in the outpatient setting has physical exam findings consistent with this as well as confirmatory nerve conduction/EMG nerve conduction study consistent with diagnosis.? Patient's failed conservative treatment.? As result through shared decision making agreed to proceed with? right carpal tunnel and right?cubital tunnel release we talked about treatment options as far as nonoperative and operative intervention.? Understands risk benefits complication alternatives surgical nonsurgical treatment options.? Understanding risks pt agrees to proceed with surgical intervention. Understanding these risks pt agrees to proceed with surgery.? Consent obtained in office. Procedure: Patient seen evaluate in the preoperative holding area.? Consent was reviewed and signed with patient.? Correct extremity marked.? Patient seen evaluated by anesthesia department once cleared for surgery was then taken back to the operative suite placed in supine position all bony prominences well-padded patient properly secured to bed.? right upper extremity placed onto armboard.? ? Patient then underwent anesthesia per the anesthesia department.? Patient's right upper extremity was then prepped and draped in standard orthopedic fashion.? Final timeout performed.? Patient received appropriate preoperative antibiotics. sterile tourniquet applied right upper arm. Esmarch was used exsanguinate the right upper extremity.? Tourniquet was insufflated to 250 mmHg. I started with the carpal tunnel release first.? I made a standard open carpal tunnel release starting with the distal most extent in the palm at the Madrigal's cardinal line and the incision line was made in line with the fourth ray and ended just distal to the wrist crease.? Sharp scalpel incision was made through skin and subcutaneous tissue I then utilizing self retainer then began to dissect with dissection scissors split longitudinally the palmar fascia.? Next I then utilizing my assistant project engineer Kiet retractors subsequently utilizing scalpel feathered through the palmaris brevis as well as through the transverse carpal ligament distally.? Once I encountered the floor of the transverse carpal ligament and entered into the carpal tunnel I then switched to dissection scissors.? Carefully released the distal extent of the transverse carpal ligament to the palmar fat.? Care was to protect the recurrent branch and not injured this during this part of the case.? Next I then placed a [place]lin[place] underneath the transverse carpal ligament proximally to protect the nerve in the carpal tunnel contents.? And then I subsequently under loupe magnification utilize my dissection scissors to release the transverse carpal ligament into the antebrachial fascia under direct visualization with care to keep my scissors with a curved ulnarly away from the palmar cutaneous branch.? The transverse carpal was then completely decompressed proximally and a [place]linston was then placed both distally and proximally throughout the carpal tunnel and had complete decompression of the nerve.? The nerve did appear to have hourglass shape as it went through the carpal tunnel.? With significant irritation noted around the nerve.? No masses were noted within the contents of the carpal tunnel.? This completed the carpal tunnel release and then I subsequently irrigated the wound bed and placed a wet Ray-Lam into the incision for later closure. Next marked out the landmarks of the right elbow of the medial epicondyle and olecranon and made a curvilinear incision following the course of the ulnar nerve at the medial aspect of the elbow.? Sharp scalpel incision was made through skin and subcutaneous tissue.? Next I switched to Littler dissection scissors and spread in plane of the medial antebrachial cutaneous nerve branching which was protected throughout this part of the dissection.? Then I directly came down over the fascia and identified the 2 heads of the FCU fascia and split this right in the middle and subsequently identified my ulnar nerve distally.? This was then completely released distally under direct visualization and loupe magnification.? Once the nerve was then identified I then subsequently tracked this proximally and released this through Pruitt's ligament as well as complete decompression of the nerve proximally all the way past the intermuscular septum.? The nerve was completely released and decompressed both proximally and distally.? Ulnar nerve neurolysis performed and completed both proximally and distally with dissection scissors.? I then took the elbow through range of motion and there was no instability or subluxating of the ulnar nerve.? This completed?cubital tunnel release.? ?Next the wound bed was thoroughly irrigated.? Tourniquet was deflated.? Hemostasis was satisfactory at the?cubital tunnel release surgery site. I then inspected the carpal tunnel incision and this was found to have satisfactory hemostasis and all this was maintained through bipolar electrocautery.? At this point time I sequentially closed?cubital tunnel site with 3-0 Vicryl suture in a running horizontal mattress nylon stitch.? ? The carpal tunnel release surgery was then closed in standard interrupted mattress fashion.? Dressing was Xeroform 4 x 4's ABD Curlex soft roll and an Andrew wrap has a bulky soft dressing. Patient was then awakened from anesthesia and taken to PACU in stable condition. Disposition: Patient taken to PACU in stable condition recovering well.? Patient will receive appropriate discharge instructions as well as pain medication postoperatively.? We will follow-up with me in the office in 2 weeks.? Patient understands agrees with current plan.? All questions answered.? pt understands if any questions or concerns and contact the office for follow-up appointment..
--- NOTE | 2024-03-22 09:10 | ANE.PACU2 ---
Inpatient post-anesthesia follow up: Airway intact: Yes Vital signs: Temperature 97.6 F Pulse Rate 65 Respiratory Rate 16 Blood Pressure 116/82 Pulse Oximetry 95 Oxygen Delivery Me thod Room Air Oxygen Flow Rate 6 Fraction of Inspir ed Oxygen Hydration adequate: Yes Nausea and vomiting: No Pain level: 1 Mental status: Baseline
== END 2024-03-22 09:10 | disposition home or self-care (01) ==
PROVIDERS: PCP Family Medicine; Visit Provider Student in an Organized Health Care Education/Training Program
PROC: (CPT 64721; principal; 2024-03-22 07:00)
PROC: (CPT 64718; 2024-03-22 07:00)
DX: G56.01 Carpal tunnel syndrome, right upper limb (principal); G56.21 Lesion of ulnar nerve, right upper limb; G47.30 Sleep apnea, unspecified; I10 Essential (primary) hypertension; K21.9 Gastro-esophageal reflux disease without esophagitis; E11.9 Type 2 diabetes mellitus without complications; E66.01 Morbid (severe) obesity due to excess calories; Z68.33 Body mass index [BMI] 33.0-33.9, adult
CPT/HCPCS: 36416; 82962; J0131; J0330; J0690; J1885; J2250; J2371; J2405; J2704; J2795; J3010; J7030

== ENCOUNTER 2024-05-24 05:39 | Day surgery (SDC) | payer BC, SELFPAY ==
[2024-05-24] VITALS (9 sets, daily range): BP systolic 110–144; BP diastolic 62–83; PULSE 79–87; RESP 14–23; TEMP 36.6–37.5; O2SAT 91–100; BMI 33.6
--- NOTE | 2024-05-24 06:16 | W.PM.OPSFHP ---
Same Day Surgery H&P Indication for Procedure/HPI DATE OF PROCEDURE: May 24, 2024 CHIEF COMPLAINT/INDICATIONFOR SURGICAL PROCEDURE: Left carpal tunnel syndrome, left cubital tunnel syndrome PREOP DIAGNOSIS: Left carpal tunnel syndrome, left cubital tunnel syndrome PLANNED PROCEDURE: Operation Date: 05/24/24 07:45 Proposed Procedures p Carpal Tunnel Release(Left) - Jimmy Narendra, DO s Cubital Tunnel Release(Left) - Jimmy Loup, DO s Possible Ulnar Nerve Transposition(Left) - Jimmy Narendra, DO Medications/Allergies* Home Medications Medication Instructions Recorded Confirmed Type acetaminophen 500 mg tablet 1,000 mg PO BID 05/21/20 05/23/24 History (Tylenol Extra Strength) Anna-Garlic Juice-Apple Cide See Rx Instructions .Route .COMPLEX 03/31/23 05/23/24 History diphenhydramine HCl 25 mg capsule 25 mg PO BID PRN Itching 03/31/23 05/23/24 History (Benadryl) echinacea 500 mg capsule 500 mg PO BID 03/31/23 05/23/24 History fluticasone propionate 50 2 spray intranasal DAILY PRN Sinus 06/18/23 05/24/24 History mcg/actuation nasal Symptoms spray,suspension Allergies/Adverse Reactions Allergy/AdvReac Type Severity Reaction Status Date / Time milk Allergy Mild ADR-Gastrointestinal Verified 04/24/24 07:52 Upset lanolin Allergy unverified Verified 04/24/24 07:52 metformin AdvReac Mild elevated Verified 04/24/24 07:52 liver enzymes Pertinent History/Comorbid Conditions* Medical History (Updated 04/24/24 @ 08:10 by Rigo Cross DPM) Type 2 diabetes mellitus, without long-term current use of insulin metformin intolerance. Liver fibrosis Hepatosplenomegaly GERD (gastroesophageal reflux disease) Situational anxiety Benign essential HTN side effects with HCTZ and amlodipine, pt does not remember what they were. Gastroparesis Hypokalemia Hyponatremia Allergic rhinitis Sleep apnea Lesion of lung MARTIN (nonalcoholic steatohepatitis) Surgical History (Updated 02/14/24 @ 08:31 by Reginaldo Santos DO) Hx of colonoscopy 07/07/23 Dr. Santos History of esophagogastroduodenoscopy (EGD) 2016 x2 Hx of tonsillectomy Hx of bilateral salpingectomy Hx of section Hx of hysterectomy Hx of dilation and curettage Hx of tubal ligation History of cholecystectomy Family History (Updated 03/03/23 @ 09:34 by Tiffany Trevino RN) Diabetes Father Grandmother Family/Other Cardiac arrest Father Myocardial infarction Family/Other Renal failure Father Family history of thyroid problem Cancer Hypertension Grandmother Stroke Mother Grandmother Social History Smoking and tobacco/nicotine status: never used tobacco/nicotine Alcohol intake: never Substance/Drug Use: never Pertinent Exam Findings alert, oriented x 3, operative site marked and procedure specific exam findings Please refer to detailed orthopedic examination on 04/11/2024: Left upper extremity examination: Negative Spurling's normal C-spine range of motion no pain Negative Tinel's bilaterally at the shoulders Positive Tinel's over the cubital tunnel left Positive left elbow flexion test Subtle intrinsic weakness noted on the left side no significant atrophy Positive Tinel's over the carpal tunnel left Positive Phalen's left positive median nerve compression test left Positive thenar weakness with subtle atrophy Examination right upper extremity stitches are in place incisions well-healed no signs of infection, she already has improvement in median and ulnar nerve paresthesias as well as increase in her strength of the thenar and intrinsic musculatures. Recommendations Surgery/Procedure today Other Plans: Plan to proceed to the OR today for left carpal tunnel release, left cubital tunnel release with possible ulnar nerve transposition. Patient understands the ins and outs of procedure the risk benefits complication alternatives of surgery and through shared decision make elects to surgical intervention. All questions answered at this time. Coding Level of Care Code Acute Code for [facility]
[2024-05-24] MEDS: scopolamine 1.5 Patch 1 PATCH TRANSDERMA (06:26)
[2024-05-24] MEDS: acetaminophen 1,000 MG/100 ML PIGGYBACK 400 MG IV (06:38)
[2024-05-24] MEDS: ketorolac 30 mg/mL INJ IVP (06:38)
[2024-05-24 06:47] LABS: Glucose Point of Care 197 mg/dL (70-110)
[2024-05-24] MEDS: sodium chloride 0.9% 1,000 ML 30 ML IV (06:52)
--- NOTE | 2024-05-24 07:11 | ANES.PREANE2 ---
Pre-Anesthetic Assessment Height/Weight: Height 5 ft 4 in Weight 196 lb O2 Del Method Room Air 05/24/24 06:12 Preop Diagnosis: Left carpal tunnel syndrome, left cubital tunnel syndrome Operation Date: 05/24/24 07:45 Proposed Procedures p Carpal Tunnel Release(Left) - Jimmy Narendra, DO s Cubital Tunnel Release(Left) - Jimmy Narendra, DO s Possible Ulnar Nerve Transposition(Left) - Jimmy [place], DO Last intake: Intake Last Liquid Date 05/23/24 Last Liquid Time 21:30 Last Solid Date 05/23/24 Last Solid Time 20:00 Social No alcohol and No tobacco Exam alert, oriented x 3 and clear to auscultation bilaterally Airway Submandibular: within normal limits Cervical ROM: within normal limits Mallampati: Class IV Anesthetic Plan ASA status: 3 Anesthesia: General Other: Patient was recently here for similar procedure under general anesthesia and did well NPO since midnight Prior cardiac history with chest pain, workup negative including Holter monitor and stress test Patient denies any cardiac symptoms today Reported dentition BP meds taken last night Chronic fatty liver Labs reviewed and acceptable for surgery Plan for general anesthesia with LMA Medications/Allergies Home Medications Medication Instructions Recorded Confirmed Last Taken Type acetaminophen 500 mg tablet 1,000 mg PO BID 05/21/20 05/23/24 11/14/23 20:30 History (Tylenol Extra Strength) blood sugar diagnostic (OneTouch #100 ea 09/26/22 04/24/24 Unknown Rx Ultra Test strips) Anna-Garlic Juice-Apple Cide See Rx Instructions .Route .COMPLEX 03/31/23 05/23/24 04/24/23 History diphenhydramine HCl 25 mg capsule 25 mg PO BID PRN Itching 03/31/23 05/23/24 11/15/23 05:15 History (Benadryl) echinacea 500 mg capsule 500 mg PO BID 03/31/23 05/23/24 05/23/24 History fluticasone propionate 50 2 spray intranasal DAILY PRN Sinus 06/18/23 05/24/24 05/23/24 History mcg/actuation nasal Symptoms spray,suspension carvedilol 25 mg tablet 25 mg PO BID #180 tabs 09/02/23 05/23/24 05/23/24 Rx hydrochlorothiazide 50 mg tablet 37.5 mg (0.75 x 50 mg) PO QAM #90 09/30/23 05/23/24 05/23/24 Rx tabs hydralazine 50 mg tablet 50 mg PO BID #180 tabs 10/26/23 05/23/24 05/23/24 Rx losartan 100 mg tablet 100 mg PO DAILY #90 tabs 11/29/23 05/24/24 05/22/24 Rx isosorbide mononitrate 30 mg 30 mg PO DAILY #90 tabs 12/23/23 05/23/24 05/23/24 Rx tablet,extended release 24 hr potassium chloride 8 mEq 8 meq PO DAILY PRN with lasix 90 01/05/24 05/23/24 05/23/24 Rx capsule,extended release days #90 caps magnesium oxide 400 mg PO DAILY 90 days #90 tabs 01/25/24 05/23/24 05/23/24 Rx furosemide 20 mg tablet (Lasix) 20 mg PO DAILY PRN edema 90 days 03/30/24 05/23/24 05/23/24 Rx #90 tabs pantoprazole 40 mg tablet,delayed 40 mg PO BID 90 days #180 tabs 03/30/24 05/23/24 05/23/24 Rx release semaglutide 0.25 mg or 0.5 mg (2 0.25 mg (0.187 mL) SUBCUT .weekly 03/30/24 05/23/24 05/16/24 Rx mg/1.5 mL) subcutaneous pen 28 days #1.5 mL injector tizanidine 4 mg tablet 4 mg PO TID PRN muscle spasticity 03/30/24 05/23/24 Unknown Rx 30 days #90 tabs diabetic shoes with 3 inserts #1 ea 04/24/24 04/24/24 Unknown Rx diltiazem HCl 120 mg 120 mg PO BID #180 tabs 05/12/24 05/23/24 05/23/24 Rx tablet,extended release 24 hr Allergies Allergy/AdvReac Type Severity Reaction Status Date / Time milk Allergy Mild ADR-Gastrointestinal Verified 04/24/24 07:52 Upset lanolin Allergy unverified Verified 04/24/24 07:52 metformin AdvReac Mild elevated Verified 04/24/24 07:52 liver enzymes Current Medications Generic Name Dose Route Start Last Admin Trade Name Freq PRN Reason Stop Dose Admin Sodium Chloride 1,000 mls @ 30 mls/hr 05/24/24 06:30 05/24/24 06:52 Sodium Chloride 0.9% IV 05/25/24 06:29 30 mls/hr .Q24H FABY Administration PFSH Anesthesia Medical History Type 2 diabetes mellitus, without long-term current use of insulin metformin intolerance. Liver fibrosis Hepatosplenomegaly GERD (gastroesophageal reflux disease) Situational anxiety Benign essential HTN side effects with HCTZ and amlodipine, pt does not remember what they were. Gastroparesis Hypokalemia Hyponatremia Allergic rhinitis Sleep apnea Lesion of lung MARTIN (nonalcoholic steatohepatitis) Surgical History Hx of colonoscopy 07/07/23 Dr. Santos History of esophagogastroduodenoscopy (EGD) 2017 x2 Hx of tonsillectomy Hx of bilateral salpingectomy Hx of section Hx of hysterectomy Hx of dilation and curettage Hx of tubal ligation History of cholecystectomy Family History Unknown No problems noted. Father Cardiac arrest Renal failure Diabetes Mother Stroke Grandmother Stroke Diabetes Hypertension Unknown No problems noted. Family/Other Diabetes Myocardial infarction Other Cancer Family history of thyroid problem Social History Smoking and tobacco/nicotine status: never used tobacco/nicotine Alcohol intake: never Substance/Drug Use: never Data Anesthesia Cardiac Studies: Echocardiogram 03/19/23 Sestamibi Stress Test (Cardiology) 10/14/23 Cardiac Event Monitor 10/11/23
[2024-05-24] MEDS: ceFAZolin 2,000 MG in sodium chloride 0.9% (plus) 50 ML 100 MG IV (07:13)
[2024-05-24] MEDS: ROPivacaine 0.5% SDV 30 mL 50 MG INJECTION (07:46)
[2024-05-24] MEDS: lidocaine-epi 1% 20 mL INJ 10 ML INJECTION (07:46)
--- NOTE | 2024-05-24 08:17 | P.BOP_ITS ---
Date of Procedure: 05/24/2024 Surgeon: Jimmy Mackey DO Bleach Maker(s): None Procedure(s) performed: Left carpal tunnel release Left cubital tunnel release (ulnar nerve decompression at the elbow) Findings of the procedure(s): Left carpal tunnel syndrome and left cubital richard andi syndrome underwent procedure as planned without issues or complications Estimated blood loss: 10 mL Specimen(s) removed: None Post-operative diagnosis: Left carpal tunnel syndrome, left cubital tunnel syndrome
--- NOTE | 2024-05-24 08:18 | PM.OP ---
Operative Report Date of procedure: May 24, 2024 Surgeon: Jimmy Mackey DO Procedure: Preoperative diagnosis: Left carpal tunnel syndrome Left cubital tunnel syndrome Postop Diagnosis: Same Procedure done: Left carpal tunnel release Left?cubital tunnel tunnel release (ulnar nerve decompression at elbow) Surgeon: Jimmy Mackey DO Estimated blood loss: 10 mL Tourniquet? 15 minutes IV fluids: 500 mL Complications: None Findings: See operative report narrative Condition: stable Disposition: same day Brief History: Patient's been seen and worked up in the outpatient setting and findings consistent with preoperative diagnosis.? Patient has Left carpal tunnel syndrome as well as Left?cubital tunnel syndrome which has been worked up in the outpatient setting has physical exam findings consistent with this as well as confirmatory nerve conduction/EMG nerve conduction study consistent with diagnosis.? Patient's failed conservative treatment.? As result through shared decision making agreed to proceed with? Left carpal tunnel and Left?cubital tunnel release with possible ulnar nerve transposition we talked about treatment options as far as nonoperative and operative intervention.? Understands risk benefits complication alternatives surgical nonsurgical treatment options.? Understanding risks patient agrees to proceed with surgical intervention today. Procedure: Patient seen evaluate in the preoperative holding area.? Consent was reviewed and signed with patient.? Correct extremity marked.? Patient seen evaluated by anesthesia department once cleared for surgery was then taken back to the operative suite placed in supine position all bony prominences well-padded patient properly secured to bed.? Left upper extremity placed onto armboard.? Nonsterile tourniquet applied Left upper arm.? Patient then underwent anesthesia per the anesthesia department.? Patient's Left upper extremity was then prepped and draped in standard orthopedic fashion.? Final timeout performed.? Patient received appropriate preoperative antibiotics. Esmarch was used exsanguinate the Left upper extremity.? Tourniquet was insufflated to 250 mmHg. I started with the carpal tunnel release first.? I made a standard open carpal tunnel release starting with the distal most extent in the palm at the Madrigal's cardinal line and the incision line was made in line with the fourth ray and ended just distal to the wrist crease.? Sharp scalpel incision was made through skin and subcutaneous tissue I then utilizing self retainer then began to dissect with dissection scissors split longitudinally the palmar fascia.? Next I then utilizing my college sports assistant Kasdan retractors subsequently utilizing scalpel feathered through the palmaris brevis as well as through the transverse carpal ligament distally.? Once I encountered the floor of the transverse carpal ligament and entered into the carpal tunnel I then switched to dissection scissors.? Carefully released the distal extent of the transverse carpal ligament to the palmar fat.? Care was to protect the recurrent branch and not injured this during this part of the case.? Next I then placed a [place] underneath the transverse carpal ligament proximally to protect the nerve in the carpal tunnel contents.? And then I subsequently under loupe magnification utilize my dissection scissors to release the transverse carpal ligament into the antebrachial fascia under direct visualization with care to keep my scissors with a curved ulnarly away from the palmar cutaneous branch.? The transverse carpal was then completely decompressed proximally and a [place] was then placed both distally and proximally throughout the carpal tunnel and had complete decompression of the nerve.? The nerve did appear to have hourglass shape as it went through the carpal tunnel.? With significant irritation noted around the nerve.? No masses were noted within the contents of the carpal tunnel.? This completed the carpal tunnel release and then I subsequently irrigated the wound bed and placed a wet Ray-Lam into the incision for later closure. Next marked out the landmarks of the Left elbow of the medial epicondyle and olecranon and made a curvilinear incision following the course of the ulnar nerve at the medial aspect of the elbow.? Sharp scalpel incision was made through skin and subcutaneous tissue.? Next I switched to Littler dissection scissors and spread in plane of the medial antebrachial cutaneous nerve branching which was protected throughout this part of the dissection.? Then I directly came down over the fascia and identified the 2 heads of the FCU fascia and split this Left in the middle and subsequently identified my ulnar nerve distally.? This was then completely released distally under direct visualization and loupe magnification.? Once the nerve was then identified I then subsequently tracked this proximally and released this through Pruitt's ligament as well as complete decompression of the nerve proximally all the way past the intermuscular septum.? The nerve was completely released and decompressed both proximally and distally.? Ulnar nerve neurolysis performed and completed both proximally and distally with dissection scissors.? I then took the elbow through range of motion and there was no instability or subluxating of the ulnar nerve.? This completed?cubital tunnel release.? ?Next the wound bed was thoroughly irrigated.? Tourniquet was deflated.? Hemostasis was satisfactory at the?cubital tunnel release surgery site. I then inspected the carpal tunnel incision and this was found to have satisfactory hemostasis and all this was maintained through bipolar electrocautery.? At this point time I sequentially closed?cubital tunnel site with 3-0 Vicryl suture in a running horizontal mattress nylon stitch.? ? The carpal tunnel release surgery was then closed in standard interrupted mattress fashion.? Dressing was Xeroform 4 x 4's ABD Curlex soft roll and an Andrew wrap has a bulky soft dressing. Patient was then awakened from anesthesia and taken to PACU in stable condition. Disposition: Patient taken to PACU in stable condition recovering well.? Patient will receive appropriate discharge instructions as well as pain medication postoperatively.? We will follow-up with orthopedics in the office in 2 weeks.? Patient understands agrees with current plan.? All questions answered.? Patient understands if any questions or concerns and contact the office for follow-up appointment..
--- NOTE | 2024-05-24 09:14 | ANE.PACU2 ---
Inpatient post-anesthesia follow up: Airway intact: Yes Vital signs: Temperature 98 F Pulse Rate 79 Respiratory Rate 17 Blood Pressure 134/82 Pulse Oximetry 97 Oxygen Delivery Me thod Room Air Oxygen Flow Rate 8 Fraction of Inspir ed Oxygen Hydration adequate: Yes Nausea and vomiting: No Pain level: 1 Mental status: Baseline
== END 2024-05-24 09:16 | disposition home or self-care (01) ==
PROVIDERS: PCP Family Medicine; Visit Provider Student in an Organized Health Care Education/Training Program
PROC: (CPT 64721; principal; 2024-05-24 07:45)
PROC: (CPT 64718; 2024-05-24 07:45)
DX: G56.02 Carpal tunnel syndrome, left upper limb (principal); G56.22 Lesion of ulnar nerve, left upper limb; E11.9 Type 2 diabetes mellitus without complications; K21.9 Gastro-esophageal reflux disease without esophagitis; I10 Essential (primary) hypertension; G47.30 Sleep apnea, unspecified
CPT/HCPCS: 64718; 64721; 36416; 82962; J0131; J0690; J1885; J2250; J2704; J2795; J3010; J7030

== ENCOUNTER → 2024-07-03 09:41 | Outpatient (BNVA) | payer BC, SELFPAY | PROVIDERS: PCP Family Medicine; Visit Provider Family Medicine | DX: I10 Essential (primary) hypertension (principal); E11.9 Type 2 diabetes mellitus without complications | CPT/HCPCS: 80053; 80061; 83036; 83735 ==

== ENCOUNTER → 2024-11-30 08:57 | Outpatient (BNVA) | payer BC, SELFPAY | PROVIDERS: PCP Family Medicine; Visit Provider Family Medicine | DX: E11.9 Type 2 diabetes mellitus without complications (principal); I10 Essential (primary) hypertension | CPT/HCPCS: 80053; 83036; 83880; 85025 ==

== ENCOUNTER → 2025-02-22 10:59 | Outpatient (BNVA) | payer BC, SELFPAY | PROVIDERS: PCP Family Medicine; Visit Provider Family Medicine | DX: I10 Essential (primary) hypertension (principal); E11.9 Type 2 diabetes mellitus without complications; D64.9 Anemia, unspecified | CPT/HCPCS: 80053; 83036; 83540; 85025 ==

== ENCOUNTER 2025-04-18 07:40 | Outpatient (CLI) | payer BC, SELFPAY ==
--- NOTE | 2025-04-18 07:44 | US_ITS ---
WS: [id number] Complete ABDOMINAL ULTRASOUND HISTORY: METABOLIC DYSFUNCTION-ASSOCIATED STEATOHEPATITIS COMPARISON: 12/22/2019 Liver: 17.6 cm in length. Liver is top normal size with marked coarse echotexture. Findings most likely from hepatic steatosis which have progressed since 2019. The entire liver is not visualized. Portal Vein: Normal hepatopetal flow with monophasic waveform. Gallbladder: Prior cholecystectomy. CBD: 0.4 cm Pancreas: Completely obscured. Right kidney: 10.0 cm x 5.1 x 4.5 cm. Cortex:1.3 cm. Normal size and echogenicity. No hydronephrosis or mass. Left kidney: 10.3 cm x 4.8 cm x 6.2 cm. Cortex: 1.3 cm. Normal size and echogenicity. No hydronephrosis or mass. Spleen: 12.5 cm. Normal size and echogenicity. Aorta and IVC: Unremarkable abdominal aorta and IVC. US/US abdomen complete* [id number] Impression: 1. Prior cholecystectomy. 2. Liver is top normal size with progression of hepatic steatosis compared to 2019. The entire liver is not imaged due to attenuation. 3. No renal obstruction.
== END 2025-04-18 07:41 | disposition home or self-care (01) ==
LOC: RAD 07:41
PROVIDERS: PCP Family Medicine; Visit Provider Internal Medicine Gastroenterology
DX: K75.81 Nonalcoholic steatohepatitis (NASH) (principal); K74.60 Unspecified cirrhosis of liver; D49.0 Neoplasm of unspecified behavior of digestive system; Z90.49 Acquired absence of other specified parts of digestive tract
CPT/HCPCS: 76700

== ENCOUNTER → 2025-06-12 08:38 | Outpatient (BNVA) | payer BC, SELFPAY | PROVIDERS: PCP Family Medicine; Visit Provider Family Medicine | DX: E11.9 Type 2 diabetes mellitus without complications (principal) | CPT/HCPCS: 80048; 80061; 83036; 83721 ==